=== PATIENT | female | born 1950 | race Caucasian/White ===

== ENCOUNTER 2020-04-30 18:08 | Emergency (ER) | payer MEDICARE, SELFPAY ==
--- NOTE | 2020-04-30 | XR_ITS ---
EXAMINATION: XR ABDOMEN COMPLETE CLINICAL INDICATION: Constipation. COMPARISON: None TECHNIQUE: 2 views of the abdomen. FINDINGS: There is a very large volume of stool from the cecum through the pelvis. No abnormally dilated bowel loop. Nonobstructive bowel pattern. Orthopedic fusion hardware and lumbar spine. IMPRESSION: Large volume of stool in colon consistent with constipation. No abnormally dilated bowel loop.
[2020-04-30 18:13] VITALS: BP 149/76; PULSE 71; RESP 16; TEMP 36.9; O2SAT 100; BMI 30.2
[2020-04-30 20:29] VITALS: BP 172/68; PULSE 73; TEMP 36.9; O2SAT 95
--- NOTE | 2020-04-30 21:13 | ED_ITS ---
HPI - General Adult General Chief complaint: General Medical Stated complaint: CONSTIPATION Time Seen by Provider: 04/30/20 21:01 Source: patient Mode of arrival: ambulatory History of Present Illness HPI narrative: Patient states constipated for the past 2 weeks. Denies nausea or vomiting. Denies fevers or chills. Patient states of no abdominal pain however been working with the doctor in taking laxatives [id number] however no help. No chest pain or shortness of breath. Again no abdominal pain Onset (ago): week(s) ( 2 weeks) Severity scale (1-10): 2 Treatments prior to arrival: other ( [id number]) Related Data Previous Rx's Medication Instructions Recorded lactulose 20 g PO BID PRN #30 ea 04/30/20 Allergies Allergy/AdvReac Type Severity Reaction Status Date / Time ciprofloxacin [From CIPRO] Allergy Unknown RASH Unverified 04/08/20 15:02 Sulfa (Sulfonamide Allergy Unknown RASH Unverified 04/08/20 15:02 Antibiotics) [SULFA (SULFONAMIDE ANTIBIOTICS)] sulfamethoxazole Allergy Unknown RASH Unverified 04/08/20 15:02 [From Bactrim] trimethoprim [From Bactrim] Allergy Unknown RASH Unverified 04/08/20 15:02 Review of Systems Constitutional: Comments: Constitutional : No Weight loss, No Fever, No Chills, No Night Sweats, No Fatigue, No Malaise ENT/Mouth : No Hearing loss, No Ear Pain, No Nasal Congestion, No Sinus Pain, No Hoarseness, No sore throat, No Rhinorrhea, No Swallowing Difficulty Eyes: No Eye Pain, No Swelling, No Redness, No Foreign Body, No Discharge, No Vision Changes Cardiovascular : No Chest Pain, No SOB, No Dyspnea on Exertion, No Orthopnea, No Edema, No Palpitations Respiratory : No Cough, No Sputum, No Wheezing, No Smoke Exposure, No Dyspnea Gastrointestinal : Positive Nausea, Positive Vomiting, positive Diarrhea, positive abdominal Pain, No Hematochezia, No Melena Genitourinary : no irregular bleeding, No Dysuria, No Urinary Frequency, No Hematuria, No Urinary Incontinence, No Urgency, No Flank Pain, No Urinary Flow Changes, No Hesitancy Musculoskeletal : No joint pain, No Myalgias, No Joint Swelling Skin : No Skin Lesions, No rash Neuro : No Weakness, No Numbness, No Paresthesias, No Loss of Consciousness, No Dizziness, No Headache Psych : No Anxiety/Panic, No Depression, No SI/HI/AH/VH, No Social Issues, Heme/Lymph: No Bruising, No Bleeding,No Lymphadenopathy Endocrine : No Polyuria, No Polydipsia, No Temperature Intolerance [facility] Past Medical History Medical History Anxiety Diabetes High cholesterol Hypertension Kidney failure Family History Family History (Updated 04/30/20 @ 21:14 by Uri Russo DO) Other Family history non-contributory Social History Social History Alcohol intake: never Smoking Status: Never smoker Use of substances other than those prescribed or required for medical reasons: No Advance Directives: No Advance Directives Information Provided: Yes Physical Exam Vital Signs and I&O and Narrative: Vital Signs and I&O: Vital Signs Temp 98.4 F 04/30/20 20:29 Pulse 73 04/30/20 20:29 Resp 16 04/30/20 18:13 BP 172/68 H 04/30/20 20:29 Pulse Ox 95 04/30/20 20:29 Intake & Output 04/30/20 04/30/20 05/01/20 06:59 18:59 06:59 Weight 70.307 kg Body Mass Index 30.2 vital signs reviewed Const: Other: Appearance: Alert. Oriented X3. No acute distress. Eyes: Pupils equal, round and reactive to light. ENT: Pharynx normal. Neck: Normal inspection. Neck supple. No lymph nodes noted. No crepitus CVS: Normal heart rate and rhythm. Pulses normal. Normal S1 and S2 Respiratory: No respiratory distress. Breath sounds normal. No Wheezing. No rales Abdomen: Soft and nontender. No rigidity. No distention. good BS x4 Skin: Skin warm and dry. Normal skin color. Normal skin turgor. Extremities: No lower extremity edema. Neurovascular intact to all extremities. No Lacerations. No Rash Neuro: Oriented X 3. No motor deficit. No sensory deficit. Moving all extermities. No slurred speech. Course Course Course Narrative: patient x-ray without bowel perforation or obstruction. Repeat exam of abdomen at discharge without signs of peritonitis. Will place patient on lactulose discharge home with follow-up with primary care doctor Medical Decision Making Differential Diagnosis Differential Diagnosis: bowel obstruction. Constipation Discharge Plan Discharge Clinical Impression: Constipation Patient Disposition: Home, Self-Care Instructions: Constipation (ED) Additional Instructions: Thank you for visiting the emergency department today. If your symptoms worsen or do not resolve completely please return to the emergency department immediately or call 911. if he have any questions please call your primary care physician Prescriptions: New lactulose 20 gram packet 20 g PO BID PRN (Reason: constipation) Qty: 30 RF: 0 Referrals: Susan Buchanan MD [Primary Care Provider] - 2 days Interventions: ED Discharge Assessment Last Done: 04/30/20 22:17 Discharge Date/Time: 04/30/20 22:19
--- NOTE | 2020-04-30 21:15 | PC.NURSE ---
PT C/O CONSTIPATION X 2 WKS. THIS IS A CHRONIC ISSUE FOR HER, SHE TAKES PERCOCETS FOR CHRONIC BACK PAIN AND A PHOSPHATE-DEPLETING MEDICATION D.T DIALYSIS TREATMENTS THAT CONTAIN IRON. PT DENIES ABD PAIN, DENIES ANY OTHER GI SXS. ABDOMEN APPEARS DISTENDED, NONTENDER. DENIES HX OF BLOCKAGES. PT A&OX3, SPEAKING IN CLEAR FULL SENTENCES. RESP EVEN AND NONLABOURED.
[2020-04-30] MEDS: Lactulose 20 GM/30 ML SOLUTION PO (22:16)
== END 2020-04-30 22:19 | disposition home or self-care (01) ==
PROVIDERS: Emergency Provider Emergency Medicine; PCP Internal Medicine
DX: K59.00 Constipation, unspecified (principal); I10 Essential (primary) hypertension; Z79.899 Other long term (current) drug therapy
CPT/HCPCS: 74019; 99283; 99284

== ENCOUNTER 2020-06-23 18:09 | Emergency (ER) | payer MEDICARE, SELFPAY ==
[2020-06-23 18:24] VITALS: BP 139/80; PULSE 66; RESP 18; TEMP 36.6; O2SAT 98; BMI 30.9
--- NOTE | 2020-06-23 19:34 | ECG_ITS ---
Test Reason : ABDPAIN Blood Pressure : / mmHG Vent. Rate : 069 BPM Atrial Rate : 069 BPM P-R Int : 150 ms QRS Dur : 070 ms QT Int : 472 ms P-R-T Axes : 074 016 074 degrees QTc Int : 505 ms Normal sinus rhythm Nonspecific ST and T wave abnormality Prolonged QT Abnormal ECG When compared with ECG of 06-SEP-2004 11:17, QT has lengthened Referred By: Georges Jacobson Electronically Signed By:TAMAR MEJIA MD
--- NOTE | 2020-06-23 19:34 | CT_ITS ---
EXAMINATION: CT HEAD WITHOUT CONTRAST CLINICAL INFORMATION: Right-sided arm numbness. COMPARISON: CT head 02/19/2019 TECHNIQUE: Contiguous axial imaging was performed from the skull base to vertex without intravenous administration of contrast. Coronal and sagittal reformatted images are performed at CT scanner This CT examination was performed using dose optimization techniques as appropriate, variously including the following: *Automated exposure control *Adjustment of mA and/or kV according to patient size (this includes techniques or standardized protocols for targeted exams where dose is matched to indication/reason for exam; i.e. extremities or head) *Use of iterative reconstruction technique DLP: 756 mGy-cm FINDINGS: There is no evidence of acute intracranial hemorrhage or territorial infarction. No abnormal mass effect or midline shift is seen. Alva to white matter differentiation is well preserved. No extra-axial fluid collections are identified. There is atrophy with prominence of the ventricles and the sulci and hypodensity of the periventricular white matter due to chronic small vessel ischemic disease. There are vascular calcifications of the internal carotid arteries bilaterally. The osseous structures and soft tissues are normal. The mastoid air cells and visualized portions of the paranasal sinuses are well aerated. CT/CT head/brain wo con IMPRESSION: No acute intracranial pathology.
--- NOTE | 2020-06-23 19:38 | ED_ITS ---
HPI - General Adult General Chief complaint: General Medical Stated complaint: right sided numbness Time Seen by Provider: 06/23/20 19:20 History of Present Illness HPI narrative: 70-year-old female who presents emergency department for evaluation numbness of her right arm. The patient has a history of end-stage renal disease and is dialyzed on Sunday and Sunday. She states that over the past 3 weeks she has noticed numbness in her left arm which involves her hand to her shoulder. She states the numbness has been constant and has gotten progressively worse. She did discuss this with her doctor who felt that it could be related to her left arm fistula and she is scheduled for a fistulogram. She states that she was working on her computer for several hours using her right hand to control the mouse. She states he then developed numbness of her right hand, forearm and right shoulder. She states she then developed left facial numbness. She attempted to use a fork to eat and had difficulty using her right arm. She states that she then developed numbness around her lips and her tongue felt numb and thick as well. She states she became very anxious and was worried that she was having a stroke so she came to the emergency department for evaluation. She believes that the right arm numbness began around 4:00 p.m. but does not know the exact time. At the time of evaluation she states that she has both left and right arm numbness with no facial numbness. She denies fever, chills, headache, nausea, vomiting, chest pain, shortness of breaths. Related Data Previous Rx's Medication Instructions Recorded lactulose 20 g PO BID PRN #30 ea 04/30/20 Allergies Allergy/AdvReac Type Severity Reaction Status Date / Time ciprofloxacin [From CIPRO] Allergy Unknown RASH Unverified 04/08/20 15:02 Sulfa (Sulfonamide Allergy Unknown RASH Unverified 04/08/20 15:02 Antibiotics) [SULFA (SULFONAMIDE ANTIBIOTICS)] sulfamethoxazole Allergy Unknown RASH Unverified 04/08/20 15:02 [From Bactrim] trimethoprim [From Bactrim] Allergy Unknown RASH Unverified 04/08/20 15:02 Review of Systems Review of Systems: Yes all other systems are reviewed and are negative Constitutional: Constitutional: Reports as per HPI Eyes: Eyes: Reports as per HPI ENT: Reports as per HPI Cardiovascular: Cardiovascular: Reports as per HPI Respiratory: Respiratory: Reports as per HPI Gastrointestinal: Gastrointestinal: Reports as per HPI Genitourinary: Genitourinary: Reports as per HPI Musculoskeletal: Musculoskeletal: Reports as per HPI Integumentary/Breasts: Skin/Breast: Reports as per HPI Neurologic: Reports as per HPI and Reports Abnormal speech present Psychiatric: Psychiatric: Reports as per HPI Allergic/Immunologic: Allergic/Immunologic: Reports as per HPI [facility] Past Medical History Medical History Anxiety Diabetes High cholesterol Hypertension Kidney failure Family History Family History Other Family history non-contributory Social History Social History Alcohol intake: never Smoking Status: Never smoker Smoked in Last 30 Days: No Use of substances other than those prescribed or required for medical reasons: No Advance Directives: No Advance Directives Information Provided: No Physical Exam Vital Signs: Vital Signs: Last Vital Signs Temp 98 F 06/23/20 18:24 Pulse 66 06/23/20 18:24 Resp 18 06/23/20 18:24 BP 139/80 06/23/20 18:24 Pulse Ox 98 06/23/20 18:24 Body Mass Index 30.9 Const: General: cooperative, no acute distress, alert and awake Orientation/consciousness: oriented to person and oriented to place Limitations: no limitations HENMT: Head: Yes normal to inspection, Yes normocephalic and Yes atraumatic Ears: external ears normal General nose exam: Normal external nose present Face and sinus: Yes normal facial exam Mouth: Normal oral and palatal mucosa present Throat: Yes posterior oropharynx normal Eyes: General: appearance normal, both eyes and all related structures Periorbital: periorbital findings normal Eyelids: Yes eyelids normal Conjunctivae: conjunctivae normal Sclerae: sclerae normal Corneas: corneas normal Pupils: Equal, round and reactive pupils present Direct Ophthalmoscopy: normal light reflex Neck: Neck: Yes normal visual inspection and Yes supple Lymphatic: no lymphadenopathy noted Chest: Chest palpation & inspection: normal inspection of the chest and normal palpation of entire chest wall Resp: Effort & Inspection: normal respiratory effort, abnormal respiratory pattern, no audible wheezes and no respiratory distress Auscultation: clear to auscultation bilaterally, no crackles, no rales, no rhonchi and no wheezes Cardio: Rate: regular rate Rhythm: regular rhythm Heart sounds: S1 normal heart sound present, S2 normal heart sound present and Murmur heart sound present GI: Inspection: No distended Palpation (GI): Soft to palpation, nontender, no guarding and No hepatosplenomegaly present Auscultation: normal bowel sounds : General: Yes no CVA tenderness Back/Spine/Pelvis: Back: no CVA tenderness Skin: General skin exam: no rashes or lesions noted Lesions: no lesions Rashes: no rashes Wounds: no wounds Neuro: General: oriented to person and oriented to place Cranial nerves: Yes CN's II-XII intact bilaterally and Yes Equal, round and reactive pupils present Cognition (Neuro): normal cognition Speech: Abnormal speech present Motor exam (neuro): 5/5 motor strength present throughout Sensory Exam: other (Normal light touch, bilaterally symmetric) Extrem: General: Yes normal to inspection, Yes full ROM, Yes no pedal edema, Yes no calf tenderness and Yes other (Left arm fistula with thrill and bruit) Psych: Appearance: grossly normal Mental Status: mental status grossly normal Speech and movement: Clear speech present Affect: normal affect Thought process: Normal thought process present NIH Stroke Scale Internal: Initial- Upon Arrival Level of Consciousness: Alert Level of Consciousness Questions: Answers both questions correctly Level of Consciousness Commands: Performs both tasks correctly Best Gaze: Normal Visual: No visual loss Facial Palsy: Normal Motor Arm (Right): No drift Motor Arm (Left): No drift Motor Leg (Right): No drift Motor Leg (Left): No drift Limb Ataxia: Absent Sensory: Normal Best Language: No aphasia Dysarthia: Normal Extinction and Inattention: No abnormality Score: 0 Course Course Course Narrative: 70-year-old female who presents to the emergency department for evaluation of right arm numbness. The patient has been experiencing left arm numbness for 3 weeks. Today, after sitting at the computer in using her mouse for several hours she developed right arm numbness followed by left facial numbness, incoordination of her right arm, periorbital numbness and numbness of her tongue. The patient's physical examination was normal at this time with an NIH stroke scale of 0 and a nonfocal neurologic exam with normal light touch. The patient does have a left arm fistula which has a good thrill and bruit. At this time, I do not have a clear etiology for the patient's symptoms, she may have had a stroke or bleed or this may be secondary to anxiety. I did order a stroke workup on the patient. 2154: The patient's laboratory evaluation was consistent with her chronic kidney disease, her electrolytes were unremarkable with a normal potassium of 3.9. The patient was not anemic. CT scan of the brain revealed no acute findings. At this time, I do not think that she has had stroke and did discuss this with her. I do not have a clear etiology for the patient's left arm numbness however I told her that it could be related to her neck or to her dialysis fistula and that she should follow up with her doctor for further evaluation. I do believe that there was a component of anxiety to her presentation as well. The patient does have Valium that she takes at night and they told her to take her usual dose. Patient was discharged home with printed instructions. Medical Decision Making Lab Data Lab results reviewed: Yes I reviewed the patient's lab results. Result diagrams: 06/23/20 20:04 06/23/20 20:04 Labs: Lab Results 06/23/20 06/23/20 06/23/20 Range/Units 20:04 20:04 20:04 WBC 12.9 H (4.8-10.8) X10*3/uL RBC 4.24 (4.20-5.50) X10*6/uL Hgb 13.0 (12.0-16.0) g/dl Hct 39.1 (37-47) % MCV 92.2 (80-98) fL MCH 30.7 (27.0-33.0) pg MCHC 33.2 (31.0-35.0) g/dl RDW 12.9 (11.0-16.0) % Plt Count 200 (160-400) X10*3/uL MPV 12.2 (9.4-12.3) fL Immature Gran % (Auto) 0.5 H (0.0-0.4) % Neut % (Auto) 79.8 H (45-73) % Lymph % (Auto) 9.9 L (20-40) % Talbot % (Auto) 7.6 (2-11) % Eos % (Auto) 1.6 (0-4) % Baso % (Auto) 0.6 (0-2) % Lymph # (Auto) 1.3 (1.2-4.9) X10*3/uL Talbot # (Auto) 1.0 (0.1-1.2) X10*3/uL Eos # (Auto) 0.2 (0.0-0.4) X10*3/uL Baso # (Auto) 0.1 (0.0-0.2) X10*3/uL Abs Immat Gran (auto) 0.07 H (0.00-0.03) X10*3/uL Absolute Neuts (auto) 10.3 H (2.0-8.3) X10*3/uL Absolute Nucleated RBC 0.000 (0.0-0.012) X10*3/uL Nucleated RBC % (auto) 0.0 (0.0-0.2) /100WBC PT 11.0 (10.8-13.0) SEC INR 0.9 (0.9-1.1) APTT 32.5 (24.1-38.0) SEC Sodium 134 L (135-145) mmol/L Potassium 3.9 (3.3-5.1) mmol/l Chloride 93 L (96-108) mmol/L Carbon Dioxide 25 (22-29) mmol/L Anion Gap 20 (12-20) BUN 29 H (9-16) mg/dL Creatinine 5.74 H* (0.5-1.4) mg/dL Estim Creat Clear Calc 7.9 Estimated GFR 7 Random Glucose 178 H (60-115) mg/dL Calcium 7.9 L (8.4-10.2) mg/dL Total Bilirubin 0.5 (0.0-1.0) mg/dL Direct Bilirubin 0.2 (0.0-0.5) mg/dL AST 14 (5-31) U/L ALT 15 (0-31) U/L Alkaline Phosphatase 227 H (39-117) U/L Total Creatine Kinase 66 (26-140) U/L Total Protein 7.5 (6.5-8.0) g/dL Albumin 4.5 (3.5-5.0) g/dL Discharge Plan Discharge Clinical Impression: Numbness and tingling in both hands, Anxiety Instructions: Hyperventilation (ED) Additional Instructions: Your blood work is consistent with your kidney disease, your electrolytes were normal. The CT scan of the brain did not reveal any evidence for a new stroke or any findings to explain your numbness. You should follow-up with your doctor to further evaluate the numbness of her left arm. Take your medications as prescribed by your doctor. Follow-up with your doctor within 2 days for re-evaluation. Please return to the emergency department if your symptoms get worse or if you develop any new symptoms are concerning to you. Prescriptions: No Action lactulose 20 gram packet 20 g PO BID PRN (Reason: constipation) Qty: 30 RF: 0
[2020-06-23 20:18] LABS: Basophils Absolute Auto 0.1 X10*3/uL (0.0-0.2); Basophils Percent Auto 0.6 % (0-2); Eosinophils Absolute Auto 0.2 X10*3/uL (0.0-0.4); Eosinophils Percent Auto 1.6 % (0-4); Hematocrit 39.1 % (37-47); Imm Gran Abs Auto 0.07 X10*3/uL (0.00-0.03); Imm Gran Pct Auto 0.5 % (0.0-0.4); Lymphocytes Absolute Auto 1.3 X10*3/uL (1.2-4.9); Lymphocytes Percent Auto 9.9 % (20-40); MANUAL DIFF FLAG NO; Mean Corpuscular HGB Conc 33.2 g/dl (31.0-35.0); Mean Corpuscular Hemoglobin 30.7 pg (27.0-33.0); Mean Corpuscular Volume 92.2 fL (80-98); Mean Platelet Volume 12.2 fL (9.4-12.3); Monocytes Percent Auto 7.6 % (2-11); Neutrophils Absolute Auto 10.3 X10*3/uL (2.0-8.3); Neutrophils Percent Auto 79.8 % (45-73); Platelet Count 200 X10*3/uL (160-400); Red Blood Count 4.24 X10*6/uL (4.20-5.50); Red Cell Distribution Width 12.9 % (11.0-16.0); White Blood Count 12.9 X10*3/uL (4.8-10.8)
[2020-06-23 20:41] LABS: INTERNATIONAL NORM RATIO 0.9 (0.9-1.1)
[2020-06-23 20:44] LABS: Partial Thromboplastin Time 32.5 SEC (24.1-38.0)
[2020-06-23 20:52] LABS: Alanine Aminotransferase 15 U/L (0-31); Albumin Level 4.5 g/dL (3.5-5.0); Alkaline Phosphatase 227 U/L (39-117); Anion Gap 20 (12-20); Aspartate Amino Transferase 14 U/L (5-31); Bilirubin Direct 0.2 mg/dL (0.0-0.5); Bilirubin Total 0.5 mg/dL (0.0-1.0); Blood Urea Nitrogen 29 mg/dL (9-16); Calcium 7.9 mg/dL (8.4-10.2); Carbon Dioxide 25 mmol/L (22-29); Chloride 93 mmol/L (96-108); Creatinine Clr Calc Pharmacy 7.9; Estimated Glomerular Filt Rate 7; Glucose Random 178 mg/dL (60-115); Potassium 3.9 mmol/l (3.3-5.1); Sodium 134 mmol/L (135-145); Total Protein 7.5 g/dL (6.5-8.0)
[2020-06-23 22:10] VITALS: BP 165/75; PULSE 72; RESP 18; TEMP 36.7; O2SAT 97
== END 2020-06-23 22:35 | disposition home or self-care (01) ==
PROVIDERS: Emergency Provider Emergency Medicine Emergency Medical Services; PCP Internal Medicine
DX: R20.0 Anesthesia of skin (principal); F41.1 Generalized anxiety disorder; F43.0 Acute stress reaction; I10 Essential (primary) hypertension; Z79.899 Other long term (current) drug therapy
CPT/HCPCS: 36415; 70450; 80048; 80076; 82550; 85025; 85610; 85730; 93005; 99284

== ENCOUNTER 2020-07-27 10:09 | Inpatient (IN) | payer MEDICARE, SELFPAY ==
[2020-07-27] VITALS (9 sets, daily range): BP systolic 155–210; BP diastolic 80–100; PULSE 73–78; RESP 16–20; TEMP 36.2–37.1; O2SAT 91–98; BMI 30.4
--- NOTE | 2020-07-27 10:16 | ECG_ITS ---
Test Reason : WEAKNESS Blood Pressure : / mmHG Vent. Rate : 077 BPM Atrial Rate : 077 BPM P-R Int : 148 ms QRS Dur : 068 ms QT Int : 438 ms P-R-T Axes : 055 032 084 degrees QTc Int : 495 ms Normal sinus rhythm Nonspecific ST abnormality Prolonged QT Abnormal ECG When compared with ECG of 23-JUN-2020 19:44, No significant change was found Referred By: Vero Blue Electronically Signed By:Mauro Hu
--- NOTE | 2020-07-27 10:16 | CT_ITS ---
EXAMINATION: CT CHEST WITHOUT CONTRAST CLINICAL INFORMATION: Left-sided rib pain. COMPARISON: None TECHNIQUE: Multidetector volumetric CT imaging of the chest was done. Axial MIP volume rendering provided. Sagittal and coronal reformatted images were obtained. This CT examination was performed using dose optimization techniques as appropriate, variously including the following: *Automated exposure control *Adjustment of mA and/or kV according to patient size (this includes techniques or standardized protocols for targeted exams where dose is matched to indication/reason for exam; i.e. extremities or head) *Use of iterative reconstruction technique DLP: 239 mGy-cm FINDINGS: FITTING ROOM OPERATOR: Well-expanded lungs. LUNGS: The lungs are well-expanded multiple bilateral pulmonary cysts. There is no acute pneumonic consolidation or mass or pulmonary nodules. Mild thickening of right superior major fissure and left mid major fissure is noted. There is diffuse mild prominence of interstitium with mild bronchiectasis in both lower lobes. There is scattered groundglass opacity right upper lobe, right middle lobe and both lower lobes. MEDIASTINUM: The heart size is normal. The pulmonary vascularity is normal. There are reactive lymph nodes in the mediastinum with the largest short axis lymph node measuring 1.3 cm in precarinal space there are coronary artery calcifications present no pericardial effusion seen. PLEURA: There is a small right pleural effusion. No pleural thickening or calcification seen. AXILLA: No abnormal lymph nodes seen UPPER ABDOMEN: Visualized liver, spleen, pancreas and bilateral adrenal glands are unremarkable. There is a small radiopaque gallstones in the dependent portion. OSSEOUS STRUCTURES: There is diffuse degenerative disc changes and spondylosis T7-T8, T8-T9, T9-T10, T10-T11 and T11-T12 disc levels. No lytic process seen. CT/CT chest wo con IMPRESSION: Groundglass attenuation seen throughout both lungs with mild interstitial prominence and mild bronchiectasis both lungs of small airway disease. No consolidation seen. There is a small right pleural effusion. There are reactive mediastinal lymph nodes with largest short axis lymph node measuring 1.3 cm in precarinal space.
--- NOTE | 2020-07-27 10:16 | NM_ITS ---
EXAMINATION: NM LUNG IMAGE PERFUSION CLINICAL INFORMATION: Left sided pleuritic chest pain COMPARISON: None TECHNIQUE: Following intravenous administration of 4 mCi of 99m technetium MAA, imaging of both lungs were obtained in multiple projections. Ventilation study was not performed. FINDINGS: There is normal perfusion of all segments of both lungs. No segmental or subsegmental defects seen. Ventilation study was not performed. NM/NM pul perfusion IMPRESSION: Normal perfusion scan.
--- NOTE | 2020-07-27 10:20 | ED.CHESTPAIN ---
HPI - Chest Pain General Chief Complaint: Back Pain/Injury Stated Complaint: rib pain Time Seen by Provider: 07/27/20 10:16 Source: patient and EMS Mode of arrival: EMS Limitations: no limitations History of Present Illness MD complaint: other (L pleuritic chest pain) Onset (ago): day(s) (7) Prior episodes: No Onset: during rest Pain location: left chest Pain radiation: none Severity: moderate Quality: sharp Relieving factors: nothing Exacerbating factors: inspiration, palpation and movement Associated symptoms: nausea and dyspnea Treatment prior to arrival: aspirin Related Data Home Medications Medication Instructions Recorded Confirmed acetaminophen-codeine 2 tab PO TID 07/27/20 07/27/20 amlodipine 1 tab PO DAILY 07/27/20 07/27/20 bupropion HCl 1 tab PO QAM 07/27/20 07/27/20 citalopram 1 tab PO DAILY 07/27/20 07/27/20 gabapentin 1 cap PO DAILY 07/27/20 07/27/20 hydralazine 1 tab PO DAILY 07/27/20 07/27/20 insulin lispro [Humalog KwikPen 0 unit SUBCUT TIDAC 07/27/20 07/27/20 Insulin] lorazepam 2 tab PO BEDTIME PRN 07/27/20 07/27/20 metoprolol succinate 1 tab PO DAILY 07/27/20 07/27/20 pravastatin 1 tab PO DAILY 07/27/20 07/27/20 psyllium husk (aspartame) 1 packet PO DAILY 07/27/20 07/27/20 [Metamucil Fiber Singles] Allergies Allergy/AdvReac Type Severity Reaction Status Date / Time ciprofloxacin [From CIPRO] Allergy Unknown RASH Unverified 04/08/20 15:02 Sulfa (Sulfonamide Allergy Unknown RASH Unverified 04/08/20 15:02 Antibiotics) [SULFA (SULFONAMIDE ANTIBIOTICS)] sulfamethoxazole Allergy Unknown RASH Unverified 04/08/20 15:02 [From Bactrim] trimethoprim [From Bactrim] Allergy Unknown RASH Unverified 04/08/20 15:02 Review of Systems Review of Systems: Constitutional : No Weight loss, No Fever, No Chills ENT/Mouth : No sore throat, No Rhinorrhea Eyes: No Eye Pain, No Swelling Cardiovascular : pos Chest Pain, pos SOB, no Dyspnea on Exertion, No Orthopnea, No Edema, No Palpitations Respiratory : No Cough, No Sputum Gastrointestinal : pos Nausea, No Vomiting, No Diarrhea, No abdominal Pain, No Hematochezia, No Melena Genitourinary : No Dysuria, No Urinary Frequency Musculoskeletal : No joint pain, No Myalgias, No Joint Swelling Skin : No Skin Lesions, No rash Neuro : No Weakness, No Numbness, No Dizziness, No Headache Psych : No Anxiety/Panic, No Depression Heme/Lymph: No Bruising, No Lymphadenopathy Endocrine : No Polyuria, No Polydipsia All other systems reviewed and are negative [facility] Past Medical History Attestation statement: The following information was validated with the patient. Medical History (Updated 07/27/20 @ 14:32 by Dalila Huizar NP) Anxiety Arthropathy of right hip AV fistula Back pain Diabetes High cholesterol Hypertension Kidney failure Surgical History (Updated 07/27/20 @ 14:32 by Dalila Huizar NP) H/O: hysterectomy Family History Family History Other Family history non-contributory Social History Social History Alcohol intake: never Smoking Status: Never smoker Use of substances other than those prescribed or required for medical reasons: No Advance Directives: No Advance Directives Information Provided: Yes Physical Exam Vital Signs: Vital Signs: Last Vital Signs Temp 98.4 F 07/27/20 13:35 Pulse 76 07/27/20 15:47 Resp 19 07/27/20 13:35 BP 210/90 H 07/27/20 15:47 Pulse Ox 98 07/27/20 13:35 Body Mass Index 30.4 Appearance: Alert. Oriented X3. No acute distress. Eyes: Pupils equal, round and reactive to light. ENT: Pharynx normal. Neck: Normal inspection. Neck supple. CVS: Normal heart rate and rhythm. Pulses normal. Chest: mild ttp along L ribs Respiratory: No respiratory distress. Breath sounds normal. Abdomen: Soft and non-tender. Skin: Skin warm and dry. Normal skin color. Normal skin turgor. Extremities: No lower extremity edema. No calf ttp LUE AVF + thrill Neuro: Oriented X 3. No motor deficit. No sensory deficit. Course Course Course Narrative: no PE, GGO in both lungs but COVID negative will need ambulation trial I trialed the patient off of O2 with activity and she became dizzy and dropped down to 78% RA she recovered with NC, COVID was negative but at this time will admit for possible pneumonia and hypoxia cultures/lactic acid ordered start on antibiotics and will admit the patient 204pm call to nephrology still pending call back from nephrology emergent HD does not seem necessary but no call back yet. MDM - Chest Pain MDM Narrative Medical decision making narrative: 70 yo femle with DM, HTN, CRF on HD T TH S here with L sided pleuritic chest pain atraumatic and now some nausea will need labs, EKG, CT scan dry chest for rib fractures/pneumonia and VQ scan (refuses contrast) to r/o PE, dispo per results and findings. Lab Data Result diagrams: 07/27/20 12:16 07/27/20 12:17 Labs: Lab Results 07/27/20 07/27/20 07/27/20 Range/Units 12:05 12:08 12:16 WBC 9.9 (4.8-10.8) X10*3/uL RBC 4.05 L (4.20-5.50) X10*6/uL Hgb 12.6 (12.0-16.0) g/dl Hct 38.0 (37-47) % MCV 93.8 (80-98) fL MCH 31.1 (27.0-33.0) pg MCHC 33.2 (31.0-35.0) g/dl RDW 14.0 (11.0-16.0) % Plt Count 206 (160-400) X10*3/uL MPV 11.4 (9.4-12.3) fL Immature Gran % (Auto) 0.4 (0.0-0.4) % Neut % (Auto) 87.3 H (45-73) % Lymph % (Auto) 6.9 L (20-40) % [place] % (Auto) 4.2 (2-11) % Eos % (Auto) 0.6 (0-4) % Baso % (Auto) 0.6 (0-2) % Lymph # (Auto) 0.7 L (1.2-4.9) X10*3/uL [place] # (Auto) 0.4 (0.1-1.2) X10*3/uL Eos # (Auto) 0.1 (0.0-0.4) X10*3/uL Baso # (Auto) 0.1 (0.0-0.2) X10*3/uL Abs Immat Gran (auto) 0.04 H (0.00-0.03) X10*3/uL Absolute Neuts (auto) 8.7 H (2.0-8.3) X10*3/uL Absolute Nucleated RBC 0.000 (0.0-0.012) X10*3/uL Nucleated RBC % (auto) 0.0 (0.0-0.2) /100WBC PT (10.8-13.0) SEC INR (0.9-1.1) APTT (24.1-38.0) SEC D-Dimer NG/ML ABG pH (7.35-7.45) ABG pCO2 (32-45) mmhg ABG pO2 (83-108) mmhg ABG HCO3 (22-26) mmol/l ABG O2 Saturation % ABG Base Excess Oxygen Given Sodium (135-145) mmol/L Potassium (3.3-5.1) mmol/l Chloride (96-108) mmol/L Carbon Dioxide (22-29) mmol/L Anion Gap (12-20) BUN (9-16) mg/dL Creatinine (0.5-1.4) mg/dL Estim Creat Clear Calc Estimated GFR Random Glucose (60-115) mg/dL Lactic Acid (0.5-2.0) mmol/L Calcium (8.4-10.2) mg/dL Magnesium (1.6-2.6) mg/dL Ferritin (10-250) ng/mL Total Bilirubin (0.0-1.0) mg/dL Direct Bilirubin (0.0-0.5) mg/dL AST (5-31) U/L ALT (0-31) U/L Alkaline Phosphatase (39-117) U/L Lactate Dehydrogenase (122-220) U/L Troponin I High Sens (<3.5-17.0) ng/L B-Natriuretic Peptide (<100) pg/mL Total Protein (6.5-8.0) g/dL Albumin (3.5-5.0) g/dL Lipase (8-78) U/L Procalcitonin ng/mL Urine Color YELLOW Urine Appearance CLEAR Urine pH 8.0 (5.0-8.0) Ur Specific [place] 1.015 (1.005-1.025) Urine Protein 2+ H (NEG-TRACE) MG/DL Urine Glucose (UA) 250 H (NEG) MG/DL Urine Ketones NEG (NEG) MG/DL Urine Blood 1+ H (NEG) Urine Nitrite NEG (NEG) Ur Leukocyte Esterase NEG (NEG) Urine RBC 1-4 (0) /HPF Urine WBC 0 (0-4) /HPF Ur Squamous Epith Cells TRACE /LPF Urine Bacteria NONE /LPF Coronavirus (PCR) (Negative) COVID-19 (FANNIE) Negative (Negative) COVID-19 Clin Com See Note Influenza Type A (PCR) (Negative) Influenza Type B (PCR) (Negative) RSV RNA Qual (PCR) (Negative) 07/27/20 07/27/20 07/27/20 Range/Units 12:17 12:17 12:17 WBC (4.8-10.8) X10*3/uL RBC (4.20-5.50) X10*6/uL Hgb (12.0-16.0) g/dl Hct (37-47) % MCV (80-98) fL MCH (27.0-33.0) pg MCHC (31.0-35.0) g/dl RDW (11.0-16.0) % Plt Count (160-400) X10*3/uL MPV (9.4-12.3) fL Immature Gran % (Auto) (0.0-0.4) % Neut % (Auto) (45-73) % Lymph % (Auto) (20-40) % [place] % (Auto) (2-11) % Eos % (Auto) (0-4) % Baso % (Auto) (0-2) % Lymph # (Auto) (1.2-4.9) X10*3/uL [place] # (Auto) (0.1-1.2) X10*3/uL Eos # (Auto) (0.0-0.4) X10*3/uL Baso # (Auto) (0.0-0.2) X10*3/uL Abs Immat Gran (auto) (0.00-0.03) X10*3/uL Absolute Neuts (auto) (2.0-8.3) X10*3/uL Absolute Nucleated RBC (0.0-0.012) X10*3/uL Nucleated RBC % (auto) (0.0-0.2) /100WBC PT 12.0 (10.8-13.0) SEC INR 1.0 (0.9-1.1) APTT 32.9 (24.1-38.0) SEC D-Dimer 277 NG/ML ABG pH (7.35-7.45) ABG pCO2 (32-45) mmhg ABG pO2 (83-108) mmhg ABG HCO3 (22-26) mmol/l ABG O2 Saturation % ABG Base Excess Oxygen Given Sodium 134 L (135-145) mmol/L Potassium 4.6 (3.3-5.1) mmol/l Chloride 93 L (96-108) mmol/L Carbon Dioxide 23 (22-29) mmol/L Anion Gap 23 H (12-20) BUN 33 H (9-16) mg/dL Creatinine 6.39 H* (0.5-1.4) mg/dL Estim Creat Clear Calc 7.1 Estimated GFR 6 Random Glucose 199 H (60-115) mg/dL Lactic Acid (0.5-2.0) mmol/L Calcium 7.9 L (8.4-10.2) mg/dL Magnesium 2.0 (1.6-2.6) mg/dL Ferritin 883 H (10-250) ng/mL Total Bilirubin 0.6 (0.0-1.0) mg/dL Direct Bilirubin 0.3 (0.0-0.5) mg/dL AST 12 (5-31) U/L ALT 18 (0-31) U/L Alkaline Phosphatase 183 H (39-117) U/L Lactate Dehydrogenase 315 H (122-220) U/L Troponin I High Sens 5.2 (<3.5-17.0) ng/L B-Natriuretic Peptide 1152 H (<100) pg/mL Total Protein 6.9 (6.5-8.0) g/dL Albumin 4.2 (3.5-5.0) g/dL Lipase 7 L (8-78) U/L Procalcitonin ng/mL Urine Color Urine Appearance Urine pH (5.0-8.0) Ur Specific [place] (1.005-1.025) Urine Protein (NEG-TRACE) MG/DL Urine Glucose (UA) (NEG) MG/DL Urine Ketones (NEG) MG/DL Urine Blood (NEG) Urine Nitrite (NEG) Ur Leukocyte Esterase (NEG) Urine RBC (0) /HPF Urine WBC (0-4) /HPF Ur Squamous Epith Cells /LPF Urine Bacteria /LPF Coronavirus (PCR) (Negative) COVID-19 (FANNIE) (Negative) COVID-19 Clin Com Influenza Type A (PCR) (Negative) Influenza Type B (PCR) (Negative) RSV RNA Qual (PCR) (Negative) 07/27/20 07/27/20 07/27/20 Range/Units 12:17 14:55 15:06 WBC (4.8-10.8) X10*3/uL RBC (4.20-5.50) X10*6/uL Hgb (12.0-16.0) g/dl Hct (37-47) % MCV (80-98) fL MCH (27.0-33.0) pg MCHC (31.0-35.0) g/dl RDW (11.0-16.0) % Plt Count (160-400) X10*3/uL MPV (9.4-12.3) fL Immature Gran % (Auto) (0.0-0.4) % Neut % (Auto) (45-73) % Lymph % (Auto) (20-40) % [place] % (Auto) (2-11) % Eos % (Auto) (0-4) % Baso % (Auto) (0-2) % Lymph # (Auto) (1.2-4.9) X10*3/uL [place] # (Auto) (0.1-1.2) X10*3/uL Eos # (Auto) (0.0-0.4) X10*3/uL Baso # (Auto) (0.0-0.2) X10*3/uL Abs Immat Gran (auto) (0.00-0.03) X10*3/uL Absolute Neuts (auto) (2.0-8.3) X10*3/uL Absolute Nucleated RBC (0.0-0.012) X10*3/uL Nucleated RBC % (auto) (0.0-0.2) /100WBC PT (10.8-13.0) SEC INR (0.9-1.1) APTT (24.1-38.0) SEC D-Dimer NG/ML ABG pH (7.35-7.45) ABG pCO2 (32-45) mmhg ABG pO2 (83-108) mmhg ABG HCO3 (22-26) mmol/l ABG O2 Saturation % ABG Base Excess Oxygen Given Sodium (135-145) mmol/L Potassium (3.3-5.1) mmol/l Chloride (96-108) mmol/L Carbon Dioxide (22-29) mmol/L Anion Gap (12-20) BUN (9-16) mg/dL Creatinine (0.5-1.4) mg/dL Estim Creat Clear Calc Estimated GFR Random Glucose (60-115) mg/dL Lactic Acid 0.9 (0.5-2.0) mmol/L Calcium (8.4-10.2) mg/dL Magnesium (1.6-2.6) mg/dL Ferritin (10-250) ng/mL Total Bilirubin (0.0-1.0) mg/dL Direct Bilirubin (0.0-0.5) mg/dL AST (5-31) U/L ALT (0-31) U/L Alkaline Phosphatase (39-117) U/L Lactate Dehydrogenase (122-220) U/L Troponin I High Sens (<3.5-17.0) ng/L B-Natriuretic Peptide (<100) pg/mL Total Protein (6.5-8.0) g/dL Albumin (3.5-5.0) g/dL Lipase (8-78) U/L Procalcitonin 0.15 ng/mL Urine Color Urine Appearance Urine pH (5.0-8.0) Ur Specific [place] (1.005-1.025) Urine Protein (NEG-TRACE) MG/DL Urine Glucose (UA) (NEG) MG/DL Urine Ketones (NEG) MG/DL Urine Blood (NEG) Urine Nitrite (NEG) Ur Leukocyte Esterase (NEG) Urine RBC (0) /HPF Urine WBC (0-4) /HPF Ur Squamous Epith Cells /LPF Urine Bacteria /LPF Coronavirus (PCR) NEGATIVE (Negative) COVID-19 (FANNIE) (Negative) COVID-19 Clin Com Influenza Type A (PCR) NEGATIVE (Negative) Influenza Type B (PCR) NEGATIVE (Negative) RSV RNA Qual (PCR) NEGATIVE (Negative) 07/27/20 Range/Units 15:40 WBC (4.8-10.8) X10*3/uL RBC (4.20-5.50) X10*6/uL Hgb (12.0-16.0) g/dl Hct (37-47) % MCV (80-98) fL MCH (27.0-33.0) pg MCHC (31.0-35.0) g/dl RDW (11.0-16.0) % Plt Count (160-400) X10*3/uL MPV (9.4-12.3) fL Immature Gran % (Auto) (0.0-0.4) % Neut % (Auto) (45-73) % Lymph % (Auto) (20-40) % [place] % (Auto) (2-11) % Eos % (Auto) (0-4) % Baso % (Auto) (0-2) % Lymph # (Auto) (1.2-4.9) X10*3/uL [place] # (Auto) (0.1-1.2) X10*3/uL Eos # (Auto) (0.0-0.4) X10*3/uL Baso # (Auto) (0.0-0.2) X10*3/uL Abs Immat Gran (auto) (0.00-0.03) X10*3/uL Absolute Neuts (auto) (2.0-8.3) X10*3/uL Absolute Nucleated RBC (0.0-0.012) X10*3/uL Nucleated RBC % (auto) (0.0-0.2) /100WBC PT (10.8-13.0) SEC INR (0.9-1.1) APTT (24.1-38.0) SEC D-Dimer NG/ML ABG pH 7.38 (7.35-7.45) ABG pCO2 40 (32-45) mmhg ABG pO2 58 L (83-108) mmhg ABG HCO3 23 (22-26) mmol/l ABG O2 Saturation 90.9 % ABG Base Excess -2.0 Oxygen Given 1 L Sodium (135-145) mmol/L Potassium (3.3-5.1) mmol/l Chloride (96-108) mmol/L Carbon Dioxide (22-29) mmol/L Anion Gap (12-20) BUN (9-16) mg/dL Creatinine (0.5-1.4) mg/dL Estim Creat Clear Calc Estimated GFR Random Glucose (60-115) mg/dL Lactic Acid (0.5-2.0) mmol/L Calcium (8.4-10.2) mg/dL Magnesium (1.6-2.6) mg/dL Ferritin (10-250) ng/mL Total Bilirubin (0.0-1.0) mg/dL Direct Bilirubin (0.0-0.5) mg/dL AST (5-31) U/L ALT (0-31) U/L Alkaline Phosphatase (39-117) U/L Lactate Dehydrogenase (122-220) U/L Troponin I High Sens (<3.5-17.0) ng/L B-Natriuretic Peptide (<100) pg/mL Total Protein (6.5-8.0) g/dL Albumin (3.5-5.0) g/dL Lipase (8-78) U/L Procalcitonin ng/mL Urine Color Urine Appearance Urine pH (5.0-8.0) Ur Specific [place] (1.005-1.025) Urine Protein (NEG-TRACE) MG/DL Urine Glucose (UA) (NEG) MG/DL Urine Ketones (NEG) MG/DL Urine Blood (NEG) Urine Nitrite (NEG) Ur Leukocyte Esterase (NEG) Urine RBC (0) /HPF Urine WBC (0-4) /HPF Ur Squamous Epith Cells /LPF Urine Bacteria /LPF Coronavirus (PCR) (Negative) COVID-19 (FANNIE) (Negative) COVID-19 Clin Com Influenza Type A (PCR) (Negative) Influenza Type B (PCR) (Negative) RSV RNA Qual (PCR) (Negative) ECG Data ECG #1: Attestation: I personally reviewed and interpreted this ECG as follows: ECG interpretation date: 07/27/20 ECG interpretation time: 11:52 Interpretation: Rate: 77 Rhythm: NSR [place]: normal Normal P waves. Normal ZAC. Normal QRS complex. ST T wave : nonspecific no ANALILIA qTC: prolonged prior studies: The study has been interpreted contemporaneously by me. . Discharge Plan Discharge Clinical Impression: Acute pain, Hypoxia Pneumonia Qualifiers: Pneumonia type: due to unspecified organism Laterality: bilateral Lung location: unspecified part of lung Qualified Code(s): J18.9 - Pneumonia, unspecified organism Patient Disposition: Admitted As Inpatient
[2020-07-27] MEDS: oxyCODONE HCl Immed Release 5 MG TABLET PO (12:27)
[2020-07-27 12:31] LABS: Basophils Absolute Auto 0.1 X10*3/uL (0.0-0.2); Basophils Percent Auto 0.6 % (0-2); Eosinophils Absolute Auto 0.1 X10*3/uL (0.0-0.4); Eosinophils Percent Auto 0.6 % (0-4); Hemoglobin 12.6 g/dl (12.0-16.0); Imm Gran Abs Auto 0.04 X10*3/uL (0.00-0.03); Imm Gran Pct Auto 0.4 % (0.0-0.4); Lymphocytes Absolute Auto 0.7 X10*3/uL (1.2-4.9); Lymphocytes Percent Auto 6.9 % (20-40); Mean Corpuscular HGB Conc 33.2 g/dl (31.0-35.0); Mean Corpuscular Hemoglobin 31.1 pg (27.0-33.0); Mean Corpuscular Volume 93.8 fL (80-98); Mean Platelet Volume 11.4 fL (9.4-12.3); Monocytes Absolute Auto 0.4 X10*3/uL (0.1-1.2); Monocytes Percent Auto 4.2 % (2-11); Neutrophils Absolute Auto 8.7 X10*3/uL (2.0-8.3); Neutrophils Percent Auto 87.3 % (45-73); Platelet Count 206 X10*3/uL (160-400); Red Blood Count 4.05 X10*6/uL (4.20-5.50); SCAN SMEAR FLAG 1; White Blood Count 9.9 X10*3/uL (4.8-10.8)
[2020-07-27 12:32] LABS: MANUAL DIFF FLAG NO
[2020-07-27 12:35] LABS: Glucose Urine UA 250 MG/DL (NEG); Leukocyte Esterase Urine NEG (NEG); Nitrite Urine NEG (NEG); Specific Gravity - Urine 1.015 (1.005-1.025); Urine Blood 1+ (NEG); Urine Ketones NEG (NEG); Urine Protein 2+ MG/DL (NEG-TRACE)
[2020-07-27 12:38] LABS: Appearance Urine CLEAR; Color Urine YELLOW
[2020-07-27 12:38] LABS: Partial Thromboplastin Time 32.9 SEC (24.1-38.0)
[2020-07-27 12:44] LABS: Squamous Epithelial Cell Urine TRACE /LPF; WBC Urine 0 /HPF (0-4)
[2020-07-27 12:46] LABS: COVID-19 Test Negative (Negative); IDNOW Serial# 9DD0AD1C
[2020-07-27 13:03] LABS: Troponin-I High Sensitivity 5.2 ng/L (<3.5-17.0)
[2020-07-27 13:06] LABS: Alanine Aminotransferase 18 U/L (0-31); Albumin Level 4.2 g/dL (3.5-5.0); Alkaline Phosphatase 183 U/L (39-117); Anion Gap 23 (12-20); Aspartate Amino Transferase 12 U/L (5-31); Bilirubin Direct 0.3 mg/dL (0.0-0.5); Bilirubin Total 0.6 mg/dL (0.0-1.0); Blood Urea Nitrogen 33 mg/dL (9-16); Calcium 7.9 mg/dL (8.4-10.2); Carbon Dioxide 23 mmol/L (22-29); Chloride 93 mmol/L (96-108); Creatinine Clr Calc Pharmacy 7.1; Estimated Glomerular Filt Rate 6; Glucose Random 199 mg/dL (60-115); Lipase 7 U/L (8-78); Potassium 4.6 mmol/l (3.3-5.1); Sodium 134 mmol/L (135-145); Total Protein 6.9 g/dL (6.5-8.0)
--- NOTE | 2020-07-27 13:30 | PC.NURSE ---
DR. MARTINEZ AT BEDSIDE DOING SIMPLE TURNING EXERCISE AT BEDSIDE WITH 02 OFF. PT DESAT TO 78% ON ROOM AIR. PT C/O EXTREME DIZZINESS WITH MOVEMENT.
--- NOTE | 2020-07-27 13:32 | PC.NURSE ---
O2 RE-APPLIED AT 2L/M VIA N/C. 02 98% ON 2L/M VIA N/C.
[2020-07-27 14:27] LABS: Lactate Dehydrogenase 315 U/L (122-220)
--- NOTE | 2020-07-27 14:31 | PM.IMHP ---
History of Present Illness Date of Service: 07/27/20 <Dalila Huizar NP - Last Filed: 07/27/20 15:59> Chief Complaint: Left rib pain <Dalila Huizar NP - Last Filed: 07/27/20 15:59> 70 year woman presented to the ER with complaints left lower rib pain radiating to her back. She reports that this started several days ago. She reported yesterday some nausea mostly dry heaves. Denied fever, chills, diarrhea. She does report history of end-stage renal disease on dialysis. She has not had any recent sick contacts although she does go to the dialysis center every Sunday, and Sunday. Because of the area of her pain she had a chest CT which showed ground-glass attenuation with no consolidation. V/Q scan was negative for PE. Coronavirus PCR was negative. While ambulating patient's oxygen saturation went down as 70%She was placed on oxygen. She was given a dose of Rocephin, azithromycin. To be admitted for further management and treatment of acute hypoxic respiratory failure. <Dalila Huizar NP - Last Filed: 07/27/20 15:59> Review of Systems Review of Systems: Denies any recent fever chills or decrease in appetite respiratory See HPI cardiovascular is adjustment of any PND or edema gastrointestinal denies any dysphagia abdominal pain nausea vomiting or diarrhea genitourinary denies any dysuria frequency or hematuria musculoskeletal See HPI neuropsych denies any weakness or seizures all other systems reviewed are negative <Dalila Huizar NP - Last Filed: 07/27/20 15:59> [facility] Medical History: Medical History Anxiety Arthropathy of right hip AV fistula Back pain Diabetes High cholesterol Hypertension Kidney failure <Dalila Huizar NP - Last Filed: 07/27/20 15:59> Family History: Family History Other Family history non-contributory <Dalila Huizar NP - Last Filed: 07/27/20 15:59> Surgical History: Surgical History H/O: hysterectomy <Dalila Huizar NP - Last Filed: 07/27/20 15:59> Social History: Social History Household Members: Spouse and Children Housing: House Alcohol intake: never Smoking Status: Never smoker service: No Current occupational status: retired <Dalila Huizar NP - Last Filed: 07/27/20 15:59> Meds Allergies/Adverse reactions: Allergies Allergy/AdvReac Type Severity Reaction Status Date / Time ciprofloxacin [From CIPRO] Allergy Unknown RASH Verified 08/01/20 23:59 Sulfa (Sulfonamide Allergy Unknown RASH Verified 08/01/20 23:59 Antibiotics) [SULFA (SULFONAMIDE ANTIBIOTICS)] sulfamethoxazole Allergy Unknown RASH Verified 08/01/20 23:59 [From Bactrim] trimethoprim [From Bactrim] Allergy Unknown RASH Verified 08/01/20 23:59 <Dalila Huizar NP - Last Filed: 07/27/20 15:59> Home medications: Home Medications Medication Instructions Recorded Confirmed Type Metamucil Fiber Singles 1 packet PO DAILY 07/27/20 07/27/20 History acetaminophen-codeine 2 tab PO TID 07/27/20 07/27/20 History amlodipine 1 tab PO DAILY 07/27/20 07/27/20 History bupropion HCl 1 tab PO QAM 07/27/20 07/27/20 History citalopram 1 tab PO DAILY 07/27/20 07/27/20 History gabapentin 1 cap PO DAILY 07/27/20 07/27/20 History hydralazine 1 tab PO DAILY 07/27/20 07/27/20 History insulin lispro [Humalog KwikPen 0 unit SUBCUT TIDAC 07/27/20 07/27/20 History Insulin] lorazepam 2 tab PO BEDTIME PRN 07/27/20 07/27/20 History metoprolol succinate 1 tab PO DAILY 07/27/20 07/27/20 History pravastatin 1 tab PO DAILY 07/27/20 07/27/20 History <Dalila Huizar NP - Last Filed: 07/27/20 15:59> Physical Exam Vital Signs and Narrative: Vital Signs: Last Vital Signs Temp 98.4 F 07/27/20 13:35 Pulse 74 07/27/20 13:35 Resp 19 07/27/20 13:35 BP 197/92 H 07/27/20 13:35 Pulse Ox 98 07/27/20 13:35 Body Mass Index 30.4 <Dalila Huizar NP - Last Filed: 07/27/20 15:59> Appearing in no acute distress head is normocephalic atraumatic eyes pupils are PERRLA sclera is anicteric mouth throat mucous membranes are intact and moist neck is supple no lymphadenopathy, no JVD noted lung sounds are clear to auscultation heart regular rate rhythm, clear S1, S2 positive bowel sounds, abdomen is soft, nontender neuro patient is alert x3, no focal deficits <Dalila Huizar NP - Last Filed: 07/27/20 15:59> Results Labs CBC and Chem 7: : 07/31/20 05:38 08/01/20 05:30 <Dalila Huizar NP - Last Filed: 07/27/20 15:59> Labs: Laboratory Results - last 24 hr 07/27/20 07/27/20 07/27/20 12:05 12:08 12:16 MCV 93.8 MCH 31.1 MCHC 33.2 RDW 14.0 Plt Count 206 MPV 11.4 Immature Gran % (Auto) 0.4 Neut % (Auto) 87.3 H Lymph % (Auto) 6.9 L [place] % (Auto) 4.2 Eos % (Auto) 0.6 Baso % (Auto) 0.6 Lymph # (Auto) 0.7 L [place] # (Auto) 0.4 Eos # (Auto) 0.1 Baso # (Auto) 0.1 Abs Immat Gran (auto) 0.04 H Absolute Neuts (auto) 8.7 H Absolute Nucleated RBC 0.000 Nucleated RBC % (auto) 0.0 PT INR APTT Anion Gap Estim Creat Clear Calc Estimated GFR Random Glucose Calcium Magnesium Total Bilirubin Direct Bilirubin AST ALT Alkaline Phosphatase Lactate Dehydrogenase Troponin I High Sens Total Protein Albumin Lipase Urine Color YELLOW Urine Appearance CLEAR Urine pH 8.0 Ur Specific [place] 1.015 Urine Protein 2+ H Urine Glucose (UA) 250 H Urine Ketones NEG Urine Blood 1+ H Urine Nitrite NEG Ur Leukocyte Esterase NEG Urine RBC 1-4 Urine WBC 0 Ur Squamous Epith Cells TRACE Urine Bacteria NONE COVID-19 (FANNIE) Negative COVID-19 Clin Com See Note 07/27/20 07/27/20 07/27/20 12:17 12:17 12:17 MCV MCH MCHC RDW Plt Count MPV Immature Gran % (Auto) Neut % (Auto) Lymph % (Auto) [place] % (Auto) Eos % (Auto) Baso % (Auto) Lymph # (Auto) [place] # (Auto) Eos # (Auto) Baso # (Auto) Abs Immat Gran (auto) Absolute Neuts (auto) Absolute Nucleated RBC Nucleated RBC % (auto) PT 12.0 INR 1.0 APTT 32.9 Anion Gap 23 H Estim Creat Clear Calc 7.1 Estimated GFR 6 Random Glucose 199 H Calcium 7.9 L Magnesium 2.0 Total Bilirubin 0.6 Direct Bilirubin 0.3 AST 12 ALT 18 Alkaline Phosphatase 183 H Lactate Dehydrogenase 315 H Troponin I High Sens 5.2 Total Protein 6.9 Albumin 4.2 Lipase 7 L Urine Color Urine Appearance Urine pH Ur Specific [place] Urine Protein Urine Glucose (UA) Urine Ketones Urine Blood Urine Nitrite Ur Leukocyte Esterase Urine RBC Urine WBC Ur Squamous Epith Cells Urine Bacteria COVID-19 (FANNIE) COVID-19 Clin Com <Dalila Huizar NP - Last Filed: 07/27/20 15:59> Imaging Radiologist's Impressions: Impressions Chest CT 07/27/20 10:16 IMPRESSION: Groundglass attenuation seen throughout both lungs with mild interstitial prominence and mild bronchiectasis both lungs of small airway disease. No consolidation seen. There is a small right pleural effusion. There are reactive mediastinal lymph nodes with largest short axis lymph node measuring 1.3 cm in precarinal space. Pulmonary Perfusion Imaging 07/27/20 10:16 IMPRESSION: Normal perfusion scan. <Dalila Huizar NP - Last Filed: 07/27/20 15:59> Assessment and Plan (1) Hypoxia: Status: Acute <Dalila Huizar NP - Last Filed: 07/27/20 15:59> 70-year-old woman initially presenting with pain to her left rib radiating to her back. Apparently she became hypoxic with ambulation down to 70%. She denies any history of COPD or asthma. Chest CT shows ground-glass attenuation without consolidation, V/Q scan negative for PE , coronavirus PCR negative. Multiple differential diagnoses include fluid overload, COVID-19 which was ruled out with PCR, PE which was ruled out with V/Q scan. Acute hypoxic respiratory failure. No history of asthma or COPD. No consolidation seen negative coronavirus near CR 12, no fever or leukocytosis. Continue supplemental oxygen therapy, BNP pending, will recheck COVID labs tomorrow. Will hold off on antibiotics or steroids at this time as no infectious sources seen. ESRD on dialysis. Seems to be fluid overload. She is due for dialysis today. Nephrology consultation. Dialysis T,TH,Sa. Hypertension. Amlodipine, hydralazine, metoprolol Diabetes mellitus. Sliding scale, ADA diet Discussed with Dr. Maldonado Full code <Dalila Huizar NP - Last Filed: 07/27/20 15:59>
[2020-07-27 14:49] LABS: Ferritin 883 ng/mL (10-250)
[2020-07-27 14:53] LABS: Procalcitonin 0.15 ng/mL
[2020-07-27 15:24] LABS: D Dimer 277 NG/ML
[2020-07-27 15:25] LABS: Lactic Acid 0.9 mmol/L (0.5-2.0)
--- NOTE | 2020-07-27 15:37 | PC.NURSE ---
call , braulio mckeon with updates [phone] updates given in wr at this time.
[2020-07-27 15:40] LABS: B Type Natriuretic Peptide 1152 pg/mL (<100)
[2020-07-27] MEDS: Lidocaine 4 % Patch ADH..PATCH 1 PATCH TRANSDERMA (15:46)
[2020-07-27] MEDS: Azithromycin 500 MG TABLET PO (15:46)
[2020-07-27] MEDS: dexAMETHasone sod phosphate 4 MG/ML VIAL IVPUSH (15:47)
[2020-07-27] MEDS: cefTRIAXone sodium 1 GM in 0.9 % Sodium Chloride 50 ML IV (15:47)
[2020-07-27] MEDS: hydrALAZINE HCl 20 MG/ML VIAL 10 MG IVPUSH (15:47)
[2020-07-27 15:57] LABS: Pt Ventilation O2% 1 L
[2020-07-27 16:00] LABS: ABG PCO2 40 mmhg (32-45); HCO3 ABG 23 mmol/l (22-26); PO2 ABG 58 mmhg (83-108); pH ABG 7.38 (7.35-7.45)
[2020-07-27 16:00] LABS: Influenza A PCR NEGATIVE (Negative); Influenza B PCR NEGATIVE (Negative); Resp Syncy Virus RNA Qual PCR NEGATIVE (Negative); SARS COV2 PCR INHOUSE NEGATIVE (Negative)
[2020-07-27 16:01] LABS: Oxygen Saturation ABG 90.9 %
[2020-07-27 17:39] LABS: Glucose, Whole Blood 166 mg/dL (60-115)
[2020-07-27] MEDS: ondansetron HCL 4 MG/2 ML VIAL IVPUSH (17:39)
[2020-07-27] MEDS: 0.9 % Sodium Chloride Flush 3 ML SYRINGE IVFLUSH ×3 (17:39→22:14)
--- NOTE | 2020-07-27 17:43 | P.EN_ITS ---
Event Note Date of Service: 07/27/20 Event Note: Patient seen examined case discussed with APC 70-year-old female patient with past medical history of end-stage renal disease on hemodialysis presented to [facility] due to left lower rib and back pain associated with dry cough and nausea of several days duration patient lives at home with family denies any sick contacts but go for dialysis 3 times per week patient workup in the ER showed ground-glass opacities on chest CT no consolidation V/Q scan is negative for PE miles PCR came back negative patient was noted to have low oxygenation around 70 with ambulation On examination no acute distress/dry heaving Lungs diminished breath sound fine crackles at bases Abdomen obese soft Extremities no edema Assessment and plan Acute hypoxic Respiratory failure no underlying history of asthma or COPD or CHF, BNP elevated question fluid overload with renal disease versus high suspicion for COVID despite COVID negative testing ldh 315, procalcitonin 0.15,ddimer 277 ,BNP 1152 CT chest with ground-glass attenuation both lungs with mild interstitial promine nce Will arrange for hemodialysis Repeat COVID test at a.m. Add cough medication, Incentive spirometry, oxygen support, hold dexamethasone, supportive care follow clinical course closely
[2020-07-27] MEDS: Acetaminophen 325 MG TABLET 650 MG PO (19:03)
[2020-07-27] MEDS: guaiFENesin DM 200/20/10 ML 10 ML SYRUP PO (19:03)
[2020-07-27] MEDS: LORazepam 0.5 MG TABLET 1 MG PO (23:50)
[2020-07-28] MEDS: LORazepam 0.5 MG TABLET 1 MG PO (01:05)
[2020-07-28 03:29] VITALS: BP 162/80; PULSE 84; RESP 17; TEMP 36.6; O2SAT 96
[2020-07-28] MEDS: traMADoL HCL 50 MG TABLET PO (04:20)
--- NOTE | 2020-07-28 05:02 | PC.NURSE ---
P-PT C/O 03/01 RIGHT HIP PAIN.HX OF RIGHT HIP REPLACEMENT.STATES WAS TURNED ON RIGHT SIDE WHEN SHE CAME IN AND NOW HAS A LOT OF IN R HIP I-DR. MORALES NOTIFIED ORDERED ULTRAM 50MG PO X 1 DOSE.GIVEN AT 0420 E-WILL CONTINUE TO MONITOR-D
[2020-07-28 06:56] LABS: Basophils Percent Auto 0.1 % (0-2); Hematocrit 36.6 % (37-47); Hemoglobin 12.3 g/dl (12.0-16.0); Imm Gran Abs Auto 0.03 X10*3/uL (0.00-0.03); Imm Gran Pct Auto 0.4 % (0.0-0.4); Lymphocytes Absolute Auto 0.6 X10*3/uL (1.2-4.9); Lymphocytes Percent Auto 8.2 % (20-40); MANUAL DIFF FLAG SCAN; Mean Corpuscular HGB Conc 33.6 g/dl (31.0-35.0); Mean Corpuscular Hemoglobin 31.2 pg (27.0-33.0); Mean Corpuscular Volume 92.9 fL (80-98); Mean Platelet Volume 12.2 fL (9.4-12.3); Monocytes Absolute Auto 0.3 X10*3/uL (0.1-1.2); Monocytes Percent Auto 3.6 % (2-11); Neutrophils Absolute Auto 6.4 X10*3/uL (2.0-8.3); Neutrophils Percent Auto 87.7 % (45-73); Platelet Count 215 X10*3/uL (160-400); Red Blood Count 3.94 X10*6/uL (4.20-5.50); Red Cell Distribution Width 13.5 % (11.0-16.0); SCAN SMEAR FLAG 1; White Blood Count 7.3 X10*3/uL (4.8-10.8)
[2020-07-28 07:11] LABS: Ferritin 755 ng/mL (10-250)
[2020-07-28 07:22] LABS: Anion Gap 30 (12-20); Blood Urea Nitrogen 41 mg/dL (9-16); Carbon Dioxide 14 mmol/L (22-29); Chloride 93 mmol/L (96-108); Creatinine Clr Calc Pharmacy 6.6; Estimated Glomerular Filt Rate 6; Glucose Random 169 mg/dL (60-115); Lactate Dehydrogenase 288 U/L (122-220); Potassium 4.6 mmol/l (3.3-5.1); Sodium 132 mmol/L (135-145)
[2020-07-28 08:00] VITALS: BP 142/66; PULSE 80; RESP 18; TEMP 36.6; O2SAT 97
[2020-07-28] MEDS: hydrALAZINE HCl 25 MG TABLET PO (08:26)
[2020-07-28] MEDS: 0.9 % Sodium Chloride Flush 3 ML SYRINGE IVFLUSH (08:27)
[2020-07-28] MEDS: amLODIPine Besylate 10 MG TABLET PO (08:27)
[2020-07-28] MEDS: buPROPion HCl XL 300 MG TAB.ER.24H PO (08:27)
[2020-07-28] MEDS: Metoprolol Succinate ER 100 MG TAB.ER.24H PO (08:27)
[2020-07-28] MEDS: Escitalopram Oxalate 10 MG TABLET PO (08:27)
[2020-07-28] MEDS: Pravastatin Sodium 20 MG TABLET PO (08:27)
[2020-07-28 08:32] LABS: Glucose, Whole Blood 142 mg/dL (60-115)
[2020-07-28 09:17] LABS: SLIDE REVIEW VERIFIED
[2020-07-28] MEDS: Gabapentin 100 MG CAPSULE PO (10:03)
[2020-07-28] MEDS: HYDROmorphone HCl 0.5 MG/0.5 ML SYRINGE 0.1 MG IVPUSH (11:20)
--- NOTE | 2020-07-28 12:15 | MHC.CM.PN ---
CM met with patient at the bedside who reports she is independent, amb with a walker and lives with her and son. Spouse Yousuf [phone] is HCP, copy requested. Discussed discharge plan, home with new referral to [facility]. will provide transport. IMM addressed. CM will continue to follow patient for discharge needs.
[2020-07-28 12:24] LABS: Glucose, Whole Blood 114 mg/dL (60-115)
--- NOTE | 2020-07-28 13:00 | PM.CNNEP ---
History of Present Illness Reason for Consult Consult date: 07/28/20 Chief Complaint Chief complaint: hypoxia History of Present Illness Narrative: 70 year old ESRD patient who gets Hemodialysis on TTS in [facility] who follows my associate Dr Cohn presented with SOB and was found to be hypoxic. She denies nausea, vomiting diarrhea, fever, chills or rigor. She denies contact with COVID patients. Her CXR showed ground glass appearance. She is need of renal replacement therapy. Nephrology has been consulted to lesvia in her clinical care Review of Systems Review of Systems Yes all other systems are reviewed and are negative [facility] Past Medical History Medical History Anxiety Arthropathy of right hip AV fistula Back pain Diabetes High cholesterol Hypertension Kidney failure Family History Family History Other Family history non-contributory Surgical History Surgical History H/O: hysterectomy Social History Social History Household Members: Spouse and Children Housing: House Do you presently have visiting nurse or other home services: No Alcohol intake: never Smoking Status: Never smoker Use of substances other than those prescribed or required for medical reasons: No Currently Displaying Signs/Symptoms of Drug Intoxication Withdrawal: No Have you been hit, kicked, punched, or otherwise hurt by someone within the past year? If so, by whom?: No Do you feel safe in your current relationship?: Yes Is there a partner from a previous relationship who is making you feel unsafe now?: No Are you made to feel afraid or neglected: No Advance Directives: No Advance Directives Information Provided: Yes Do you have thoughts of harming others: None Do you have a plan to hurt others: No Plan Recently lost weight without trying: No service: No Current occupational status: retired Meds Allergies Allergy/AdvReac Type Severity Reaction Status Date / Time ciprofloxacin [From CIPRO] Allergy Unknown RASH Unverified 04/08/20 15:02 Sulfa (Sulfonamide Allergy Unknown RASH Unverified 04/08/20 15:02 Antibiotics) [SULFA (SULFONAMIDE ANTIBIOTICS)] sulfamethoxazole Allergy Unknown RASH Unverified 04/08/20 15:02 [From Bactrim] trimethoprim [From Bactrim] Allergy Unknown RASH Unverified 04/08/20 15:02 Home Medications Medication Instructions Recorded Confirmed Type acetaminophen-codeine 2 tab PO TID 07/27/20 07/27/20 History amlodipine 1 tab PO DAILY 07/27/20 07/27/20 History bupropion HCl 1 tab PO QAM 07/27/20 07/27/20 History citalopram 1 tab PO DAILY 07/27/20 07/27/20 History gabapentin 1 cap PO DAILY 07/27/20 07/27/20 History hydralazine 1 tab PO DAILY 07/27/20 07/27/20 History insulin lispro [Humalog KwikPen 0 unit SUBCUT TIDAC 07/27/20 07/27/20 History Insulin] lorazepam 2 tab PO BEDTIME PRN 07/27/20 07/27/20 History metoprolol succinate 1 tab PO DAILY 07/27/20 07/27/20 History pravastatin 1 tab PO DAILY 07/27/20 07/27/20 History psyllium husk (aspartame) 1 packet PO DAILY 07/27/20 07/27/20 History [Metamucil Fiber Singles] Physical Exam Vital Signs: Last Vital Signs Temp 97.9 F 07/28/20 08:00 Pulse 80 07/28/20 08:00 Resp 18 07/28/20 08:00 BP 142/66 H 07/28/20 08:00 Pulse Ox 97 07/28/20 08:00 Body Mass Index 30.4 Const General: comfortable Neck Neck: Yes supple Resp Auscultation: diminished lung sounds Cardio Heart sounds: no rubs GI Palpation (GI): Soft to palpation Neuro General: moves all extremities Results Lab Results Result Diagrams: 07/28/20 04:34 07/28/20 04:34 Lab results: Chemistry 07/27/20 07/28/20 12:17 04:34 Sodium 134 L 132 L Potassium 4.6 4.6 Carbon Dioxide 23 14 L BUN 33 H 41 H Creatinine 6.39 H* 6.80 H* Calcium 7.9 L 8.0 L Hematology 07/27/20 07/28/20 12:16 04:34 WBC 9.9 7.3 Hgb 12.6 12.3 Plt Count 206 215 Urinalysis 07/27/20 12:05 Urine Color YELLOW Urine Appearance CLEAR Urine pH 8.0 Ur Specific [place] 1.015 Urine Protein 2+ H Urine Glucose (UA) 250 H Urine Ketones NEG Urine Blood 1+ H Urine Nitrite NEG Ur Leukocyte Esterase NEG Urine RBC 1-4 Urine WBC 0 Ur Squamous Epith Cells TRACE Assessment and Plan (1) ESRD (end stage renal disease) on dialysis: Problem details: Usually gets HD TTS( Dr Cohn) Shall dialyse her today and will put back on schedule tomorrow Renal Diet; Phos binders with meals Volume optimization on HD No indication for Procrit Shall closely follow up Status: Acute
--- NOTE | 2020-07-28 13:13 | PM.EVENT ---
Event Note Date of Service: 07/28/20 Event Note: Seen and examined on HD. Tolerating HD well. Hemodynamically stable on HD. Sid Aguilar MD
[2020-07-28 14:26] VITALS: BP 144/44; PULSE 71; RESP 20; TEMP 36.9; O2SAT 96
[2020-07-28 14:49] LABS: Adenovirus PCR Not Detected (Not Detect.); Bordetella parapertussis PCR Not Detected (Not Detect.); Bordetella pertussis PCR Not Detected (Not Detect.); Chlamydia pneumoniae PCR Not Detected (Not Detect.); Coronavirus 229E PCR Not Detected (Not Detect.); Coronavirus HKU1 PCR Not Detected (Not Detect.); Coronavirus NL63 PCR Not Detected (Not Detect.); Coronavirus OC43 PCR Not Detected (Not Detect.); Human metapneumovirus PCR Not Detected (Not Detect.); Influenza A PCR Not Detected (Not Detect.); Influenza B PCR Not Detected (Not Detect.); Mycoplasma pneumoniae PCR Not Detected (Not Detect.); Parainfluenza 1 PCR Not Detected (Not Detect.); Parainfluenza 2 PCR Not Detected (Not Detect.); Parainfluenza 3 PCR Not Detected (Not Detect.); Parainfluenza 4 PCR Not Detected (Not Detect.); RSV PCR Not Detected (Not Detect.); Rhino/Enterovirus PCR Not Detected (Not Detect.); SARS-CoV-2 PCR Not Detected (Not Detect.)
[2020-07-28 14:50] VITALS: BMI 30.4
[2020-07-28 15:27] VITALS: BP 150/78; PULSE 82; RESP 20; TEMP 37.2; O2SAT 98
--- NOTE | 2020-07-28 15:47 | W.PM.IDCN ---
History of Present Illness Data of Consult Service Date: 07/28/20 Primary Care Provider: Susan Buchanan MD [facility] Reason for consult: shortness of breath She presents to hospital with left sided 4/10 chest pain for two days She has no nausea,vomiting or diarrhea She has no known COVID exposure She is COVID negative PMFSH Past Medical History Medical History Anxiety Arthropathy of right hip AV fistula Back pain Diabetes High cholesterol Hypertension Kidney failure Family History Family History Other Family history non-contributory Family history: reviewed and not pertinent Surgical History Surgical History H/O: hysterectomy Social History Social History Household Members: Spouse and Children Housing: House Do you presently have visiting nurse or other home services: No Alcohol intake: never Smoking Status: Never smoker Use of substances other than those prescribed or required for medical reasons: No Currently Displaying Signs/Symptoms of Drug Intoxication Withdrawal: No Have you been hit, kicked, punched, or otherwise hurt by someone within the past year? If so, by whom?: No Do you feel safe in your current relationship?: Yes Is there a partner from a previous relationship who is making you feel unsafe now?: No Are you made to feel afraid or neglected: No Advance Directives: No Advance Directives Information Provided: Yes Do you have thoughts of harming others: None Do you have a plan to hurt others: No Plan Recently lost weight without trying: No service: No Current occupational status: retired Meds Allergies Allergy/AdvReac Type Severity Reaction Status Date / Time ciprofloxacin [From CIPRO] Allergy Unknown RASH Unverified 04/08/20 15:02 Sulfa (Sulfonamide Allergy Unknown RASH Unverified 04/08/20 15:02 Antibiotics) [SULFA (SULFONAMIDE ANTIBIOTICS)] sulfamethoxazole Allergy Unknown RASH Unverified 04/08/20 15:02 [From Bactrim] trimethoprim [From Bactrim] Allergy Unknown RASH Unverified 04/08/20 15:02 Home Medications Medication Instructions Recorded Confirmed Type acetaminophen-codeine 2 tab PO TID 07/27/20 07/27/20 History amlodipine 1 tab PO DAILY 07/27/20 07/27/20 History bupropion HCl 1 tab PO QAM 07/27/20 07/27/20 History citalopram 1 tab PO DAILY 07/27/20 07/27/20 History gabapentin 1 cap PO DAILY 07/27/20 07/27/20 History hydralazine 1 tab PO DAILY 07/27/20 07/27/20 History insulin lispro [Humalog KwikPen 0 unit SUBCUT TIDAC 07/27/20 07/27/20 History Insulin] lorazepam 2 tab PO BEDTIME PRN 07/27/20 07/27/20 History metoprolol succinate 1 tab PO DAILY 07/27/20 07/27/20 History pravastatin 1 tab PO DAILY 07/27/20 07/27/20 History psyllium husk (aspartame) 1 packet PO DAILY 07/27/20 07/27/20 History [Metamucil Fiber Singles] Physical Exam Vital Signs: Vital Signs: Last Vital Signs Temp 98.9 F 07/28/20 15:27 Pulse 82 07/28/20 15:27 Resp 20 07/28/20 15:27 BP 150/78 H 07/28/20 15:27 Pulse Ox 98 07/28/20 15:27 Body Mass Index 30.4 Const: General: cooperative Orientation/consciousness: oriented to person, oriented to place and oriented to time HENMT: Head: Yes normal to inspection Mouth: Normal oral and palatal mucosa present Eyes: General: appearance normal, both eyes and all related structures Resp: Effort & Inspection: normal respiratory effort Cardio: Rate: regular rate Rhythm: regular rhythm GI: Palpation (GI): Soft to palpation and nontender : General: Yes no CVA tenderness Back/Spine/Pelvis: Back: no CVA tenderness Skin: General skin exam: no rashes or lesions noted Neuro: General: oriented to person, oriented to place and oriented to time Extrem: General: Yes normal to inspection Assessment and Plan (1) Pneumonia: Qualifiers: Laterality: bilateral Lung location: unspecified part of lung Pneumonia type: due to unspecified organism Qualified Code(s): J18.9 - Pneumonia, unspecified organism Problem details: Shortness of breath There is concern over atypical organisms No COVID is seen ESRD Status: Acute Doxycycline 100 mg bid Check Legionella antigen (2) Hypoxia: Status: Acute (3) ESRD (end stage renal disease) on dialysis: Problem details: Usually gets HD TTS( Dr Cohn) Shall dialyse her today and will put back on schedule tomorrow Renal Diet; Phos binders with meals Volume optimization on HD No indication for Procrit Shall closely follow up Status: Acute Results Labs CBC & Chem 7: 07/28/20 04:34 07/28/20 04:34 Labs: Short CBC 07/28/20 Range/Units 04:34 WBC 7.3 (4.8-10.8) X10*3/uL Hgb 12.3 (12.0-16.0) g/dl Hct 36.6 L (37-47) % Plt Count 215 (160-400) X10*3/uL BMP 07/28/20 04:34 Sodium 132 L Potassium 4.6 Chloride 93 L Carbon Dioxide 14 L BUN 41 H Creatinine 6.80 H* Calcium 8.0 L
[2020-07-28 16:26] LABS: Glucose, Whole Blood 182 mg/dL (60-115)
[2020-07-28] MEDS: Insulin Lispro 100 UNIT/ML 3 ML VIAL SUBCUT (17:39)
--- NOTE | 2020-07-28 18:16 | P.PNIM_ITS ---
Subjective Subjective Date of Service: 07/28/20 Interval History: rib pain improved notes cough is chronic, going on 8-9 months no fever/chills undergoing HD today Physical Exam Vital Signs: Vital Signs: Last Vital Signs Temp 98.9 F 07/28/20 15:27 Pulse 82 07/28/20 15:27 Resp 20 07/28/20 15:27 BP 150/78 H 07/28/20 15:27 Pulse Ox 98 07/28/20 15:27 Body Mass Index 30.4 Gen: in no acute distress HEENT: sclera anicteric, moist mucus membranes Neck: supple Lungs: no respiratory distress, auscultation deferred due to COVID-19 Heart: normal peripheral pulses Abd: soft, non-tender, non-distended Ext: no cyanosis, clubbing, or edema Skin: warm/well-perfused Neuro: alert and oriented x3, no focal findings Psych: appropriate affect Objective Data Current Medications Generic Name Dose Route Start Last Admin Trade Name Freq PRN Reason Stop Dose Admin Acetaminophen 650 mg 07/27/20 17:13 07/27/20 19:03 Acetaminophen 325 Mg Tablet PO 650 mg Q6H PRN Administration Pain, Mild (Pain Scale 1-3) Acetaminophen/Codeine Phosphate 2 tab 07/27/20 21:00 07/28/20 14:25 Acetaminophen With Codeine # 3 Tablet PO 2 tab TID MARBELLA Administration Amlodipine Besylate 10 mg 07/28/20 09:00 07/28/20 08:27 Amlodipine Besylate 10 Mg Tablet PO 10 mg DAILY MARBELLA Administration Protocol Bupropion HCl 300 mg 07/28/20 09:00 07/28/20 08:27 Bupropion Hcl Xl 300 Mg Tab.Er.24h PO 300 mg DAILY MARBELLA Administration Doxycycline Hyclate 100 mg 07/28/20 18:00 07/28/20 17:39 Doxycycline Hyclate 100 Mg Tablet PO 100 mg Q12H MARBELLA Administration Escitalopram Oxalate 10 mg 07/28/20 09:00 07/28/20 08:27 Escitalopram Oxalate 10 Mg Tablet PO 10 mg DAILY MARBELLA Administration Gabapentin 100 mg 07/28/20 09:00 07/28/20 10:03 Gabapentin 100 Mg Capsule PO 100 mg DAILY MARBELLA Administration Guaifenesin/Dextromethorphan 10 ml 07/27/20 18:00 07/28/20 17:39 Guaifenesin Dm 200/20/10 Ml 10 Ml Syrup PO Not Given Q6H [facility] Hydralazine HCl 25 mg 07/28/20 09:00 07/28/20 08:26 Hydralazine Hcl 25 Mg Tablet PO 25 mg DAILY [facility] Administration Protocol Hydromorphone HCl 0.1 mg 07/28/20 09:33 07/28/20 11:20 Hydromorphone Hcl 0.5 Mg/0.5 Ml Syringe IVPUSH 0.1 mg Q4H PRN Administration pain,severe Insulin Human Lispro 0 unit 07/28/20 17:15 07/28/20 17:39 Insulin Lispro 100 Unit/Ml 3 Ml Vial SUBCUT 2 unit TIDAC [facility] Administration Protocol Lactulose 20 gm 07/28/20 09:32 Lactulose 20 Gm/30 Ml Solution PO Q24H PRN constipation Lorazepam 1 mg 07/27/20 17:13 07/28/20 01:05 Lorazepam 0.5 Mg Tablet PO 0.5 mg BEDTIME PRN Administration anxiety Metoprolol Succinate 100 mg 07/28/20 09:00 07/28/20 08:27 Metoprolol Succinate Er 100 Mg Tab.Er.24h PO 100 mg DAILY [facility] Administration Protocol Ondansetron HCl 4 mg 07/27/20 17:13 07/27/20 17:39 Ondansetron Hcl 4 Mg/2 Ml Vial IVPUSH 4 mg Q8H PRN Administration Nausea and Vomiting Pharmacy Consult 1 each 07/27/20 14:32 Consult Rx Perform Med Rec MISCELLANE ONCE PRN Consult order Pravastatin Sodium 20 mg 07/28/20 09:00 07/28/20 08:27 Pravastatin Sodium 20 Mg Tablet PO 20 mg DAILY [facility] Administration Psyllium Hydrophilic Mucilloid 3.4 gm 07/28/20 09:00 07/28/20 08:44 Psyllium Seed 3.4 Gm Powd.Pack PO Not Given DAILY [facility] Sodium Chloride 3 ml 07/27/20 17:13 07/28/20 08:27 0.9 % Sodium Chloride Flush 3 Ml Syringe IVFLUSH 3 ml QSHIFT [facility] Administration Labs CBC & Chem 7: 07/28/20 04:34 07/28/20 04:34 Labs: Laboratory Results - last 24 hr 07/28/20 07/28/20 07/28/20 04:34 04:34 08:26 WBC 7.3 RBC 3.94 L Hgb 12.3 Hct 36.6 L MCV 92.9 MCH 31.2 MCHC 33.6 RDW 13.5 Plt Count 215 MPV 12.2 Immature Gran % (Auto) 0.4 Neut % (Auto) 87.7 H Lymph % (Auto) 8.2 L [place] % (Auto) 3.6 Eos % (Auto) 0.0 Baso % (Auto) 0.1 Lymph # (Auto) 0.6 L [place] # (Auto) 0.3 Eos # (Auto) 0.0 Baso # (Auto) 0.0 Abs Immat Gran (auto) 0.03 Absolute Neuts (auto) 6.4 Absolute Nucleated RBC 0.000 Nucleated RBC % (auto) 0.0 Smear Tech's Comments VERIFIED Sodium 132 L Potassium 4.6 Chloride 93 L Carbon Dioxide 14 L Anion Gap 30 H BUN 41 H Creatinine 6.80 H* Estim Creat Clear Calc 6.6 Estimated GFR 6 POC Glucose 142 H Random Glucose 169 H Calcium 8.0 L Ferritin 755 H Lactate Dehydrogenase 288 H 07/28/20 07/28/20 12:20 16:13 WBC RBC Hgb Hct MCV MCH MCHC RDW Plt Count MPV Immature Gran % (Auto) Neut % (Auto) Lymph % (Auto) [place] % (Auto) Eos % (Auto) Baso % (Auto) Lymph # (Auto) [place] # (Auto) Eos # (Auto) Baso # (Auto) Abs Immat Gran (auto) Absolute Neuts (auto) Absolute Nucleated RBC Nucleated RBC % (auto) Smear Tech's Comments Sodium Potassium Chloride Carbon Dioxide Anion Gap BUN Creatinine Estim Creat Clear Calc Estimated GFR POC Glucose 114 182 H Random Glucose Calcium Ferritin Lactate Dehydrogenase Microbiology Microbiology Results: Microbiology 07/27/20 14:55 Blood - Venous Blood Culture - Preliminary No growth after 24 hours. 07/27/20 14:55 Blood - Venous Blood Culture - Preliminary No growth after 24 hours. Assessment and Plan (1) Ground glass opacity present on imaging of lung: Status: Acute (2) Pneumonia: Problem details: Shortness of breath There is concern over atypical organisms No COVID is seen ESRD Status: Acute (3) ESRD (end stage renal disease) on dialysis: Problem details: Usually gets HD TTS( Dr Cohn) Shall dialyse her today and will put back on schedule tomorrow Renal Diet; Phos binders with meals Volume optimization on HD No indication for Procrit Shall closely follow up Status: Acute (4) Hypoxia: Status: Acute Assessment and Plan: hospital d#2 70yo F with ESRD on HD, HTN, DM2 admitted with hypoxia, ground-glass pneumonia # ground-glass/atypical pneumonia - 2 molecular tests for COVID-19 negative; will check antibody to see if prior infection - ID consulted, check Legionella antigen and started doxycycline d#1 # acute hypoxic respiratory failure - wean O2 as tolerated # ESRD on HD - continue HD tiw # HTN - continue amlodipine, metoprolol, hydralazine # DM2 - continue correction-dose insulin # mood disorder - continue bupropion + escitalopram # VTE ppx - UFH
[2020-07-28 19:55] VITALS: BP 173/79; PULSE 82; RESP 18; TEMP 36.8; O2SAT 93
[2020-07-28] MEDS: Heparin Sodium,Porcine 5,000 UNIT/ML VIAL 5000 UNIT SUBCUT (20:05)
[2020-07-28 20:57] VITALS: BP 151/79
[2020-07-28 20:59] LABS: Glucose, Whole Blood 140 mg/dL (60-115)
[2020-07-28] MEDS: Acetaminophen 325 MG TABLET 650 MG PO (23:53)
[2020-07-28] MEDS: guaiFENesin DM 200/20/10 ML 10 ML SYRUP PO (23:53)
[2020-07-29] VITALS (11 sets, daily range): BP systolic 157–184; BP diastolic 72–85; PULSE 66–86; RESP 18–20; TEMP 36.7–37; O2SAT 93–99
[2020-07-29] MEDS: LORazepam 0.5 MG TABLET 1 MG PO (01:24)
[2020-07-29] MEDS: HYDROmorphone HCl 0.5 MG/0.5 ML SYRINGE 0.1 MG IVPUSH (04:36)
[2020-07-29] MEDS: hydrALAZINE HCl 20 MG/ML VIAL 5 MG IVPUSH (06:05)
[2020-07-29] MEDS: 0.9 % Sodium Chloride Flush 3 ML SYRINGE IVFLUSH ×2 (06:07→14:54)
[2020-07-29] MEDS: Heparin Sodium,Porcine 5,000 UNIT/ML VIAL 5000 UNIT SUBCUT ×2 (06:11→17:27)
[2020-07-29 06:44] LABS: MANUAL DIFF FLAG NO
[2020-07-29 07:16] LABS: Basophils Absolute Auto 0.1 X10*3/uL (0.0-0.2); Basophils Percent Auto 0.6 % (0-2); Eosinophils Absolute Auto 0.1 X10*3/uL (0.0-0.4); Eosinophils Percent Auto 1.6 % (0-4); Hematocrit 35.8 % (37-47); Hemoglobin 11.8 g/dl (12.0-16.0); Imm Gran Abs Auto 0.03 X10*3/uL (0.00-0.03); Imm Gran Pct Auto 0.3 % (0.0-0.4); Lymphocytes Absolute Auto 0.9 X10*3/uL (1.2-4.9); Mean Platelet Volume 12.3 fL (9.4-12.3); Monocytes Absolute Auto 0.7 X10*3/uL (0.1-1.2); Monocytes Percent Auto 8.2 % (2-11); Neutrophils Absolute Auto 6.9 X10*3/uL (2.0-8.3); Neutrophils Percent Auto 79.3 % (45-73); Platelet Count 194 X10*3/uL (160-400); Red Blood Count 3.81 X10*6/uL (4.20-5.50); Red Cell Distribution Width 13.6 % (11.0-16.0); White Blood Count 8.7 X10*3/uL (4.8-10.8)
[2020-07-29 07:29] LABS: Glucose, Whole Blood 155 mg/dL (60-115)
[2020-07-29] MEDS: Insulin Lispro 100 UNIT/ML 3 ML VIAL SUBCUT ×2 (07:40→17:25)
[2020-07-29] MEDS: Gabapentin 100 MG CAPSULE PO (08:18)
[2020-07-29] MEDS: Metoprolol Succinate ER 100 MG TAB.ER.24H PO (08:18)
[2020-07-29] MEDS: amLODIPine Besylate 10 MG TABLET PO (08:18)
[2020-07-29] MEDS: Pravastatin Sodium 20 MG TABLET PO (08:18)
[2020-07-29] MEDS: hydrALAZINE HCl 25 MG TABLET PO ×2 (08:18→17:29)
[2020-07-29] MEDS: Escitalopram Oxalate 10 MG TABLET PO (08:19)
[2020-07-29] MEDS: buPROPion HCl XL 300 MG TAB.ER.24H PO (08:19)
[2020-07-29 09:12] LABS: Procalcitonin 0.17 ng/mL
[2020-07-29 09:18] LABS: Anion Gap 22 (12-20); Blood Urea Nitrogen 29 mg/dL (9-16); C Reactive Protein 0.32 mg/dL (< or = 0.50); Carbon Dioxide 20 mmol/L (22-29); Chloride 94 mmol/L (96-108); Glucose Random 141 mg/dL (60-115); Potassium 4.6 mmol/l (3.3-5.1); Sodium 131 mmol/L (135-145)
[2020-07-29 10:09] LABS: SARS COV2 IgG Negative (Negative)
--- NOTE | 2020-07-29 10:16 | P.PNNP_ITS ---
Subjective Subjective Date of Service: 07/29/20 Interval history: Seen and examined on HD this AM. Hemodynamically stable on HD. D/W HD RN Physical Exam Vital Signs: Vital Signs: Last Vital Signs Temp 98.2 F 07/29/20 08:00 Pulse 78 07/29/20 08:18 Resp 18 07/29/20 08:00 BP 158/76 H 07/29/20 08:18 Pulse Ox 95 07/29/20 08:00 Body Mass Index 30.4 Const: General: comfortable Orientation/consciousness: patient oriented x3 Eyes: EOM: EOMs intact bilaterally Neck: Neck: Yes supple Resp: Auscultation: diminished lung sounds Cardio: Heart sounds: no rubs GI: Palpation (GI): Soft to palpation Neuro: General: patient oriented x3 Objective Data Labs CBC & Chem 7: 07/29/20 05:28 07/29/20 05:28 Labs: Laboratory Results - last 24 hr 07/28/20 07/28/20 07/28/20 12:20 14:31 16:13 WBC RBC Hgb Hct MCV MCH MCHC RDW Plt Count MPV Immature Gran % (Auto) Neut % (Auto) Lymph % (Auto) [place] % (Auto) Eos % (Auto) Baso % (Auto) Lymph # (Auto) [place] # (Auto) Eos # (Auto) Baso # (Auto) Abs Immat Gran (auto) Absolute Neuts (auto) Absolute Nucleated RBC Nucleated RBC % (auto) Sodium Potassium Chloride Carbon Dioxide Anion Gap BUN POC Glucose 114 182 H Random Glucose Calcium C-Reactive Protein Procalcitonin Respiratory Panel [place] See Note Adenovirus (Rapid PCR) Not Detected B.pert (TEM-PCR) Not Detected B.parapertussis DNA PCR Not Detected C. pneumoniae DNA (PCR) Not Detected Coronavirus OC43 (PCR) Not Detected Coronavirus HKU1 (PCR) Not Detected Coronavirus 229E (PCR) Not Detected Coronavirus NL63 (PCR) Not Detected Human Metapneumovir PCR Not Detected Influenza A (RT-PCR) Not Detected Influenza B (RT-PCR) Not Detected M. pneumoniae (PCR) Not Detected Parainfluenza 1 (PCR) Not Detected Parainfluenza 2 (PCR) Not Detected Parainfluenza 3 (PCR) Not Detected Parainfluenza 4 (PCR) Not Detected RSV (PCR) Not Detected Entero/Rhino (PCR) Not Detected SARS-CoV-2 RNA (RT-PCR) Not Detected SARS-CoV-2 IgG Ab 07/28/20 07/29/20 07/29/20 20:53 05:28 05:28 WBC 8.7 RBC 3.81 L Hgb 11.8 L Hct 35.8 L MCV 94.0 MCH 31.0 MCHC 33.0 RDW 13.6 Plt Count 194 MPV 12.3 Immature Gran % (Auto) 0.3 Neut % (Auto) 79.3 H Lymph % (Auto) 10.0 L [place] % (Auto) 8.2 Eos % (Auto) 1.6 Baso % (Auto) 0.6 Lymph # (Auto) 0.9 L [place] # (Auto) 0.7 Eos # (Auto) 0.1 Baso # (Auto) 0.1 Abs Immat Gran (auto) 0.03 Absolute Neuts (auto) 6.9 Absolute Nucleated RBC 0.000 Nucleated RBC % (auto) 0.0 Sodium 131 L Potassium 4.6 Chloride 94 L Carbon Dioxide 20 L Anion Gap 22 H BUN 29 H POC Glucose 140 H Random Glucose 141 H Calcium 8.0 L C-Reactive Protein 0.32 Procalcitonin Respiratory Panel [place] Adenovirus (Rapid PCR) B.pert (TEM-PCR) B.parapertussis DNA PCR C. pneumoniae DNA (PCR) Coronavirus OC43 (PCR) Coronavirus HKU1 (PCR) Coronavirus 229E (PCR) Coronavirus NL63 (PCR) Human Metapneumovir PCR Influenza A (RT-PCR) Influenza B (RT-PCR) M. pneumoniae (PCR) Parainfluenza 1 (PCR) Parainfluenza 2 (PCR) Parainfluenza 3 (PCR) Parainfluenza 4 (PCR) RSV (PCR) Entero/Rhino (PCR) SARS-CoV-2 RNA (RT-PCR) SARS-CoV-2 IgG Ab 07/29/20 07/29/20 07/29/20 05:28 05:28 07:25 WBC RBC Hgb Hct MCV MCH MCHC RDW Plt Count MPV Immature Gran % (Auto) Neut % (Auto) Lymph % (Auto) [place] % (Auto) Eos % (Auto) Baso % (Auto) Lymph # (Auto) [place] # (Auto) Eos # (Auto) Baso # (Auto) Abs Immat Gran (auto) Absolute Neuts (auto) Absolute Nucleated RBC Nucleated RBC % (auto) Sodium Potassium Chloride Carbon Dioxide Anion Gap BUN POC Glucose 155 H Random Glucose Calcium C-Reactive Protein Procalcitonin 0.17 Respiratory Panel [place] Adenovirus (Rapid PCR) B.pert (TEM-PCR) B.parapertussis DNA PCR C. pneumoniae DNA (PCR) Coronavirus OC43 (PCR) Coronavirus HKU1 (PCR) Coronavirus 229E (PCR) Coronavirus NL63 (PCR) Human Metapneumovir PCR Influenza A (RT-PCR) Influenza B (RT-PCR) M. pneumoniae (PCR) Parainfluenza 1 (PCR) Parainfluenza 2 (PCR) Parainfluenza 3 (PCR) Parainfluenza 4 (PCR) RSV (PCR) Entero/Rhino (PCR) SARS-CoV-2 RNA (RT-PCR) SARS-CoV-2 IgG Ab Negative Microbiology Microbiology Results: Microbiology 07/27/20 14:55 Blood - Venous Blood Culture - Preliminary No growth after 24 hours. 07/27/20 14:55 Blood - Venous Blood Culture - Preliminary No growth after 24 hours. Assessment & Plan Assessment and plan (1) ESRD (end stage renal disease) on dialysis: Problem details: Usually gets HD TTS( Dr Cohn) Seen and examined on HD this AM Renal Diet; Phos binders with meals Volume optimization on HD No indication for Procrit Shall closely follow up Status: Acute (2) Pneumonia: Problem details: Shortness of breath There is concern over atypical organisms No COVID is seen; On antibiotics Status: Acute Time Spent With Patient Time: Total time spent is greater than 50% in coordination of care (as documented) at patient's floor/unit and/or counseling patient:
[2020-07-29 10:53] LABS: Creatinine Clr Calc Pharmacy 8.7; Estimated Glomerular Filt Rate 8
[2020-07-29] MEDS: HYDROmorphone HCl 0.5 MG/0.5 ML SYRINGE 0.2 MG IVPUSH ×2 (12:53→20:06)
--- NOTE | 2020-07-29 12:55 | HO.PM.IMPN ---
Subjective Subjective Date of Service: 07/29/20 Interval History: cough somewhat improved, still on O2 1L via NC c/o hip pain related to positioning in bed no fever/chills HD today Physical Exam Vital Signs: Vital Signs: Last Vital Signs Temp 98.2 F 07/29/20 08:00 Pulse 78 07/29/20 08:18 Resp 18 07/29/20 08:00 BP 158/76 H 07/29/20 08:18 Pulse Ox 95 07/29/20 08:00 Body Mass Index 30.4 Gen: in no acute distress HEENT: sclera anicteric, moist mucus membranes Neck: supple Lungs: no respiratory distress, auscultation deferred due to COVID-19 concerns Heart: normal peripheral pulses Abd: soft, non-tender, non-distended Ext: no cyanosis, clubbing, or edema Skin: warm/well-perfused Neuro: alert and oriented x3, no focal findings Psych: appropriate affect Objective Data Current Medications Generic Name Dose Route Start Last Admin Trade Name Freq PRN Reason Stop Dose Admin Acetaminophen 650 mg 07/27/20 17:13 07/28/20 23:53 Acetaminophen 325 Mg Tablet PO 650 mg Q6H PRN Administration Pain, Mild (Pain Scale 1-3) Acetaminophen/Codeine Phosphate 2 tab 07/27/20 21:00 07/29/20 08:16 Acetaminophen With Codeine # 3 Tablet PO 2 tab TID MARBELLA Administration Amlodipine Besylate 10 mg 07/28/20 09:00 07/29/20 08:18 Amlodipine Besylate 10 Mg Tablet PO 10 mg DAILY [facility] Administration Protocol Bupropion HCl 300 mg 07/28/20 09:00 07/29/20 08:19 Bupropion Hcl Xl 300 Mg Tab.Er.24h PO 300 mg DAILY [facility]A Administration Doxycycline Hyclate 100 mg 07/28/20 18:00 07/29/20 06:14 Doxycycline Hyclate 100 Mg Tablet PO 100 mg Q12H [facility] Administration Escitalopram Oxalate 10 mg 07/28/20 09:00 07/29/20 08:19 Escitalopram Oxalate 10 Mg Tablet PO 10 mg DAILY [facility] Administration Gabapentin 100 mg 07/28/20 09:00 07/29/20 08:18 Gabapentin 100 Mg Capsule PO 100 mg DAILY [facility] Administration Guaifenesin/Dextromethorphan 10 ml 07/27/20 18:00 07/29/20 06:19 Guaifenesin Dm 200/20/10 Ml 10 Ml Syrup PO Not Given Q6H [facility] Heparin Sodium (Porcine) 5,000 unit 07/28/20 19:00 07/29/20 06:11 Heparin Sodium,Porcine 5,000 Unit/Ml Vial SUBCUT 5,000 unit Q12H [facility] Administration Hydralazine HCl 25 mg 07/29/20 17:30 Hydralazine Hcl 25 Mg Tablet PO BIDPC [facility] Protocol Hydromorphone HCl 0.2 mg 07/29/20 12:34 Hydromorphone Hcl 0.5 Mg/0.5 Ml Syringe IVPUSH Q4H PRN pain,severe Insulin Human Lispro 0 unit 07/28/20 17:15 07/29/20 07:40 Insulin Lispro 100 Unit/Ml 3 Ml Vial SUBCUT 2 unit TIDAC [facility] Administration Protocol Lactulose 20 gm 07/28/20 09:32 Lactulose 20 Gm/30 Ml Solution PO Q24H PRN constipation Lorazepam 1 mg 07/27/20 17:13 07/29/20 01:24 Lorazepam 0.5 Mg Tablet PO 1 mg BEDTIME PRN Administration anxiety Metoprolol Succinate 100 mg 07/28/20 09:00 07/29/20 08:18 Metoprolol Succinate Er 100 Mg Tab.Er.24h PO 100 mg DAILY [facility] Administration Protocol Ondansetron HCl 4 mg 07/27/20 17:13 07/27/20 17:39 Ondansetron Hcl 4 Mg/2 Ml Vial IVPUSH 4 mg Q8H PRN Administration Nausea and Vomiting Pharmacy Consult 1 each 07/27/20 14:32 Consult Rx Perform Med Rec MISCELLANE ONCE PRN Consult order Pravastatin Sodium 20 mg 07/28/20 09:00 07/29/20 08:18 Pravastatin Sodium 20 Mg Tablet PO 20 mg DAILY [facility] Administration Psyllium Hydrophilic Mucilloid 3.4 gm 07/28/20 09:00 07/29/20 08:19 Psyllium Seed 3.4 Gm Powd.Pack PO 3.4 gm DAILY [facility] Administration Sodium Chloride 3 ml 07/27/20 17:13 07/29/20 06:07 0.9 % Sodium Chloride Flush 3 Ml Syringe IVFLUSH 3 ml QSHIFT [facility] Administration Labs CBC & Chem 7: 07/29/20 05:28 07/29/20 05:28 Microbiology Microbiology Results: Microbiology 07/27/20 14:55 Blood - Venous Blood Culture - Preliminary No growth after 24 hours. 07/27/20 14:55 Blood - Venous Blood Culture - Preliminary No growth after 24 hours. Assessment and Plan (1) Ground glass opacity present on imaging of lung: Status: Acute (2) Pneumonia: Status: Acute (3) ESRD (end stage renal disease) on dialysis: Status: Acute (4) Hypoxia: Status: Acute Assessment and Plan: hospital d#3 70yo F with ESRD on HD, HTN, DM2 admitted with hypoxia, ground-glass pneumonia # ground-glass/atypical pneumonia - 3 molecular tests for COVID-19 negative and IgG negative indicated no prior infection - ID consulted, Legionella antigen pending, doxycycline d#2 # acute hypoxic respiratory failure - wean O2 as tolerated # ESRD on HD - continue HD tiw # HTN - continue amlodipine, metoprolol, hydralazine # DM2 - continue correction-dose insulin # mood disorder - continue bupropion + escitalopram # VTE ppx - UFH
[2020-07-29 12:59] LABS: Glucose, Whole Blood 122 mg/dL (60-115)
[2020-07-29 17:20] LABS: Glucose, Whole Blood 166 mg/dL (60-115)
[2020-07-29 20:30] LABS: Glucose, Whole Blood 111 mg/dL (60-115)
[2020-07-30] VITALS (9 sets, daily range): BP systolic 116–170; BP diastolic 58–86; PULSE 64–75; RESP 16–20; TEMP 36.6–36.9; O2SAT 94–96
[2020-07-30] MEDS: HYDROmorphone HCl 0.5 MG/0.5 ML SYRINGE 0.2 MG IVPUSH ×2 (01:10→06:09)
[2020-07-30] MEDS: 0.9 % Sodium Chloride Flush 3 ML SYRINGE IVFLUSH ×4 (01:11→21:02)
[2020-07-30] MEDS: LORazepam 0.5 MG TABLET 1 MG PO (02:10)
[2020-07-30] MEDS: Heparin Sodium,Porcine 5,000 UNIT/ML VIAL 5000 UNIT SUBCUT ×2 (06:09→18:06)
[2020-07-30 08:01] LABS: Glucose, Whole Blood 164 mg/dL (60-115)
[2020-07-30] MEDS: ondansetron HCL 4 MG/2 ML VIAL IVPUSH (08:27)
[2020-07-30] MEDS: Insulin Lispro 100 UNIT/ML 3 ML VIAL SUBCUT (08:34)
[2020-07-30] MEDS: Metoprolol Succinate ER 100 MG TAB.ER.24H PO (08:37)
[2020-07-30] MEDS: Escitalopram Oxalate 10 MG TABLET PO (08:38)
[2020-07-30] MEDS: buPROPion HCl XL 300 MG TAB.ER.24H PO (08:38)
[2020-07-30] MEDS: Gabapentin 100 MG CAPSULE PO (08:38)
[2020-07-30] MEDS: Pravastatin Sodium 20 MG TABLET PO (08:38)
[2020-07-30] MEDS: hydrALAZINE HCl 25 MG TABLET PO ×2 (08:38→16:58)
[2020-07-30] MEDS: amLODIPine Besylate 10 MG TABLET PO (08:38)
[2020-07-30 11:39] LABS: Glucose, Whole Blood 140 mg/dL (60-115)
[2020-07-30] MEDS: Lidocaine 4 % Patch ADH..PATCH 2 PATCH TRANSDERMA (11:41)
--- NOTE | 2020-07-30 12:28 | P.PNIM_ITS ---
Subjective Subjective Date of Service: 07/30/20 Interval History: ongoing R hip pain, prior YOVANI there also c/o L rib cage pain related to coughing breathing improved depressed but denies SI Physical Exam Vital Signs: Vital Signs: Last Vital Signs Temp 97.8 F 07/30/20 08:00 Pulse 72 07/30/20 08:38 Resp 20 07/30/20 08:00 BP 170/60 H 07/30/20 08:38 Pulse Ox 95 07/30/20 08:00 Body Mass Index 30.4 Gen: in no acute distress HEENT: sclera anicteric, moist mucus membranes Neck: supple Lungs: no respiratory distress, lungs clear B Heart: normal peripheral pulses Abd: soft, non-tender, non-distended Ext: no cyanosis, clubbing, or edema Skin: warm/well-perfused Neuro: alert and oriented x3, no focal findings Psych: appropriate affect Objective Data Current Medications Generic Name Dose Route Start Last Admin Trade Name Freq PRN Reason Stop Dose Admin Acetaminophen 650 mg 07/27/20 17:13 07/28/20 23:53 Acetaminophen 325 Mg Tablet PO 650 mg Q6H PRN Administration Pain, Mild (Pain Scale 1-3) Acetaminophen/Codeine Phosphate 2 tab 07/27/20 21:00 07/30/20 08:38 Acetaminophen With Codeine # 3 Tablet PO 2 tab TID [facility] Administration Amlodipine Besylate 10 mg 07/28/20 09:00 07/30/20 08:38 Amlodipine Besylate 10 Mg Tablet PO 10 mg DAILY [facility] Administration Protocol Bupropion HCl 300 mg 07/28/20 09:00 07/30/20 08:38 Bupropion Hcl Xl 300 Mg Tab.Er.24h PO 300 mg DAILY [facility] Administration Doxycycline Hyclate 100 mg 07/28/20 18:00 07/30/20 06:09 Doxycycline Hyclate 100 Mg Tablet PO 100 mg Q12H [facility] Administration Escitalopram Oxalate 10 mg 07/28/20 09:00 07/30/20 08:38 Escitalopram Oxalate 10 Mg Tablet PO 10 mg DAILY [facility] Administration Gabapentin 100 mg 07/28/20 09:00 07/30/20 08:38 Gabapentin 100 Mg Capsule PO 100 mg DAILY [facility] Administration Guaifenesin/Dextromethorphan 10 ml 07/27/20 18:00 07/30/20 11:45 Guaifenesin Dm 200/20/10 Ml 10 Ml Syrup PO Not Given Q6H [facility] Heparin Sodium (Porcine) 5,000 unit 07/28/20 19:00 07/30/20 06:09 Heparin Sodium,Porcine 5,000 Unit/Ml Vial SUBCUT 5,000 unit Q12H [facility] Administration Hydralazine HCl 25 mg 07/29/20 17:30 07/30/20 08:38 Hydralazine Hcl 25 Mg Tablet PO 25 mg BIDPC [facility] Administration Protocol Hydromorphone HCl 0.2 mg 07/29/20 12:34 07/30/20 06:09 Hydromorphone Hcl 0.5 Mg/0.5 Ml Syringe IVPUSH 0.2 mg Q4H PRN Administration pain,severe Insulin Human Lispro 0 unit 07/28/20 17:15 07/30/20 11:40 Insulin Lispro 100 Unit/Ml 3 Ml Vial SUBCUT Not Given TIDAC [facility] Protocol Lactulose 20 gm 07/28/20 09:32 Lactulose 20 Gm/30 Ml Solution PO Q24H PRN constipation Lidocaine 2 patch 07/30/20 11:45 07/30/20 11:41 Lidocaine 4 % Patch Adh..Patch TRANSDERMA 2 patch DAILY [facility] Administration Protocol Lorazepam 1 mg 07/27/20 17:13 07/30/20 02:10 Lorazepam 0.5 Mg Tablet PO 1 mg BEDTIME PRN Administration anxiety Metoprolol Succinate 100 mg 07/28/20 09:00 07/30/20 08:37 Metoprolol Succinate Er 100 Mg Tab.Er.24h PO 100 mg DAILY [facility] Administration Protocol Ondansetron HCl 4 mg 07/27/20 17:13 07/30/20 08:27 Ondansetron Hcl 4 Mg/2 Ml Vial IVPUSH 4 mg Q8H PRN Administration Nausea and Vomiting Pharmacy Consult 1 each 07/27/20 14:32 Consult Rx Perform Med Rec MISCELLANE ONCE PRN Consult order Pravastatin Sodium 20 mg 07/28/20 09:00 07/30/20 08:38 Pravastatin Sodium 20 Mg Tablet PO 20 mg DAILY [facility] Administration Psyllium Hydrophilic Mucilloid 3.4 gm 07/28/20 09:00 07/30/20 08:42 Psyllium Seed 3.4 Gm Powd.Pack PO Not Given DAILY [facility] Sodium Chloride 3 ml 07/27/20 17:13 07/30/20 08:30 0.9 % Sodium Chloride Flush 3 Ml Syringe IVFLUSH 3 ml QSHIFT [facility] Administration Labs CBC & Chem 7: 07/29/20 05:28 07/29/20 05:28 Labs: Laboratory Results - last 24 hr 07/29/20 07/29/20 07/29/20 12:53 17:10 20:14 POC Glucose 122 H 166 H 111 07/30/20 07/30/20 07:56 11:26 POC Glucose 164 H 140 H Microbiology Microbiology Results: Microbiology 07/27/20 14:55 Blood - Venous Blood Culture - Preliminary No growth after 48 hours. 07/27/20 14:55 Blood - Venous Blood Culture - Preliminary No growth after 48 hours. Assessment and Plan (1) Ground glass opacity present on imaging of lung: Status: Acute (2) Pneumonia: Status: Acute (3) ESRD (end stage renal disease) on dialysis: Status: Acute (4) Hypoxia: Status: Acute Assessment and Plan: hospital d#4 70yo F with ESRD on HD, HTN, DM2 admitted with hypoxia, ground-glass pneumonia, COVID-negative # ground-glass/atypical pneumonia - 3 molecular tests for COVID-19 negative and IgG negative indicated no prior infection - ID consulted, Legionella antigen pending, doxycycline d#3 # acute hypoxic respiratory failure - wean O2 as tolerated # ESRD on HD - continue HD tiw # HTN - continue amlodipine, metoprolol, hydralazine # DM2 - continue correction-dose insulin # mood disorder - continue bupropion + escitalopram # hip pain # rib pain related to coughing - prn Dilaudid, lidocaine patch # VTE ppx - UFH # dispo - anticipate home tomorrow with VNA if continues to improve
--- NOTE | 2020-07-30 12:31 | PM.PNNEP ---
Subjective Subjective Date of Service: 07/30/20 Interval history: Had HD yesterday Breathing improved Physical Exam Vital Signs: Vital Signs: Last Vital Signs Temp 97.8 F 07/30/20 08:00 Pulse 72 07/30/20 08:38 Resp 20 07/30/20 08:00 BP 170/60 H 07/30/20 08:38 Pulse Ox 95 07/30/20 08:00 Body Mass Index 30.4 Const: General: no acute distress Orientation/consciousness: patient oriented x3 Neck: Neck: Yes no JVD Resp: Auscultation: diminished lung sounds Cardio: Rate: regular rate GI: Palpation (GI): Soft to palpation Neuro: General: patient oriented x3 Objective Data Labs CBC & Chem 7: 07/29/20 05:28 07/29/20 05:28 Labs: Laboratory Results - last 24 hr 07/29/20 07/29/20 07/29/20 12:53 17:10 20:14 POC Glucose 122 H 166 H 111 07/30/20 07/30/20 07:56 11:26 POC Glucose 164 H 140 H Microbiology Microbiology Results: Microbiology 07/27/20 14:55 Blood - Venous Blood Culture - Preliminary No growth after 48 hours. 07/27/20 14:55 Blood - Venous Blood Culture - Preliminary No growth after 48 hours. Assessment & Plan Assessment and plan (1) ESRD (end stage renal disease) on dialysis: Problem details: Usually gets HD on TTS( [facility] Anayeli Cohn) Renal Diet; Phos binders with meals Continued volume optimization on HD No indication for Procrit now; Next HD tomorrow Concur with rest of current management Shall closely follow along Status: Acute Time Spent With Patient Time: Total time spent is greater than 50% in coordination of care (as documented) at patient's floor/unit and/or counseling patient:
--- NOTE | 2020-07-30 13:16 | MHC.CARE ---
CARE Team spoke with Hoda and provided her with OP information, she stated she is depressed because of her medical conditions. Stated she will like to go back to her therapist from [facility] in [place], phone numbers were provided for her to follow up with referral made.
--- NOTE | 2020-07-30 13:18 | MHC.CM.PN ---
Patient continues on 1 liter O2 via NC. Discharge plan is home with services from [facility]. will provide transportation. CM will continue to follow patient for discharge needs.
[2020-07-30 16:37] LABS: Glucose, Whole Blood 149 mg/dL (60-115)
[2020-07-30] MEDS: guaiFENesin DM 200/20/10 ML 10 ML SYRUP PO (16:58)
[2020-07-30 20:55] LABS: Glucose, Whole Blood 123 mg/dL (60-115)
[2020-07-31] VITALS (7 sets, daily range): BP systolic 139–168; BP diastolic 65–73; PULSE 62–84; RESP 18–20; TEMP 36.4–37.2; O2SAT 96–99
[2020-07-31] MEDS: guaiFENesin DM 200/20/10 ML 10 ML SYRUP PO ×3 (05:32→18:33)
[2020-07-31 06:45] LABS: MANUAL DIFF FLAG NO
[2020-07-31 07:01] LABS: Basophils Absolute Auto 0.1 X10*3/uL (0.0-0.2); Basophils Percent Auto 0.6 % (0-2); Eosinophils Absolute Auto 0.2 X10*3/uL (0.0-0.4); Hematocrit 36.5 % (37-47); Hemoglobin 12.3 g/dl (12.0-16.0); Imm Gran Abs Auto 0.04 X10*3/uL (0.00-0.03); Imm Gran Pct Auto 0.5 % (0.0-0.4); Lymphocytes Percent Auto 11.7 % (20-40); Mean Corpuscular HGB Conc 33.7 g/dl (31.0-35.0); Mean Corpuscular Hemoglobin 30.9 pg (27.0-33.0); Mean Corpuscular Volume 91.7 fL (80-98); Mean Platelet Volume 12.2 fL (9.4-12.3); Monocytes Absolute Auto 0.8 X10*3/uL (0.1-1.2); Monocytes Percent Auto 9.7 % (2-11); Neutrophils Absolute Auto 6.5 X10*3/uL (2.0-8.3); Neutrophils Percent Auto 75.5 % (45-73); Platelet Count 167 X10*3/uL (160-400); Red Blood Count 3.98 X10*6/uL (4.20-5.50); Red Cell Distribution Width 12.8 % (11.0-16.0); White Blood Count 8.7 X10*3/uL (4.8-10.8)
[2020-07-31 07:34] LABS: Procalcitonin 0.14 ng/mL
[2020-07-31] MEDS: Lidocaine 4 % Patch ADH..PATCH 2 PATCH TRANSDERMA (07:52)
[2020-07-31] MEDS: Gabapentin 100 MG CAPSULE PO (07:53)
[2020-07-31 08:12] LABS: Anion Gap 20 (12-20); Blood Urea Nitrogen 41 mg/dL (9-16); Calcium 8.2 mg/dL (8.4-10.2); Carbon Dioxide 18 mmol/L (22-29); Chloride 94 mmol/L (96-108); Estimated Glomerular Filt Rate 7; Glucose Random 137 mg/dL (60-115); Sodium 127 mmol/L (135-145)
[2020-07-31] MEDS: hydrALAZINE HCl 25 MG TABLET PO ×2 (10:28→17:34)
[2020-07-31] MEDS: Pravastatin Sodium 20 MG TABLET PO (10:28)
[2020-07-31] MEDS: amLODIPine Besylate 10 MG TABLET PO (10:28)
[2020-07-31] MEDS: buPROPion HCl XL 300 MG TAB.ER.24H PO (10:28)
[2020-07-31] MEDS: Escitalopram Oxalate 10 MG TABLET PO (10:29)
[2020-07-31] MEDS: Metoprolol Succinate ER 100 MG TAB.ER.24H PO (10:29)
[2020-07-31] MEDS: 0.9 % Sodium Chloride Flush 3 ML SYRINGE IVFLUSH ×2 (10:30→16:08)
[2020-07-31] MEDS: HYDROmorphone HCl 0.5 MG/0.5 ML SYRINGE 0.4 MG IVPUSH (11:00)
[2020-07-31 11:23] LABS: Glucose, Whole Blood 261 mg/dL (60-115)
--- NOTE | 2020-07-31 12:09 | P.PNIM_ITS ---
Subjective Subjective Date of Service: 07/31/20 Interval History: still c/o hip pain and lower left rib cage pain breathing improving had HD today Physical Exam Vital Signs: Vital Signs: Last Vital Signs Temp 98.9 F 07/31/20 04:00 Pulse 75 07/31/20 11:18 Resp 18 07/31/20 11:18 BP 165/73 H 07/31/20 11:18 Pulse Ox 97 07/31/20 11:18 Body Mass Index 30.4 Gen: in no acute distress HEENT: sclera anicteric, moist mucus membranes Neck: supple Lungs: no respiratory distress, lungs clear B Heart: normal peripheral pulses Abd: soft, non-tender, non-distended Ext: no cyanosis, clubbing, or edema Skin: warm/well-perfused Neuro: alert and oriented x3, no focal findings Psych: appropriate affect Objective Data Current Medications Generic Name Dose Route Start Last Admin Trade Name Freq PRN Reason Stop Dose Admin Acetaminophen 650 mg 07/27/20 17:13 07/28/20 23:53 Acetaminophen 325 Mg Tablet PO 650 mg Q6H PRN Administration Pain, Mild (Pain Scale 1-3) Acetaminophen/Codeine Phosphate 2 tab 07/27/20 21:00 07/31/20 07:53 Acetaminophen With Codeine # 3 Tablet PO 2 tab TID MARBELLA Administration Amlodipine Besylate 10 mg 07/28/20 09:00 07/31/20 10:28 Amlodipine Besylate 10 Mg Tablet PO 10 mg DAILY [facility] Administration Protocol Bupropion HCl 300 mg 07/28/20 09:00 07/31/20 10:28 Bupropion Hcl Xl 300 Mg Tab.Er.24h PO 300 mg DAILY [facility] Administration Doxycycline Hyclate 100 mg 07/28/20 18:00 07/31/20 05:32 Doxycycline Hyclate 100 Mg Tablet PO 100 mg Q12H [facility] Administration Escitalopram Oxalate 10 mg 07/28/20 09:00 07/31/20 10:29 Escitalopram Oxalate 10 Mg Tablet PO 10 mg DAILY [facility] Administration Gabapentin 100 mg 07/28/20 09:00 07/31/20 07:53 Gabapentin 100 Mg Capsule PO 100 mg DAILY [facility] Administration Guaifenesin/Dextromethorphan 10 ml 07/27/20 18:00 07/31/20 11:05 Guaifenesin Dm 200/20/10 Ml 10 Ml Syrup PO 10 ml Q6H [facility] Administration Heparin Sodium (Porcine) 5,000 unit 07/28/20 19:00 07/31/20 10:43 Heparin Sodium,Porcine 5,000 Unit/Ml Vial SUBCUT Not Given Q12H [facility] Hydralazine HCl 25 mg 07/29/20 17:30 07/31/20 10:28 Hydralazine Hcl 25 Mg Tablet PO 25 mg BIDPC [facility] Administration Protocol Hydromorphone HCl 0.4 mg 07/30/20 12:28 07/31/20 11:00 Hydromorphone Hcl 0.5 Mg/0.5 Ml Syringe IVPUSH 0.4 mg Q4H PRN Administration pain,severe Insulin Human Lispro 0 unit 07/28/20 17:15 07/31/20 10:29 Insulin Lispro 100 Unit/Ml 3 Ml Vial SUBCUT Not Given TIDAC [facility] Protocol Lactulose 20 gm 07/28/20 09:32 Lactulose 20 Gm/30 Ml Solution PO Q24H PRN constipation Lidocaine 2 patch 07/30/20 11:45 07/31/20 07:52 Lidocaine 4 % Patch Adh..Patch TRANSDERMA 2 patch DAILY [facility] Administration Protocol Lorazepam 1 mg 07/27/20 17:13 07/30/20 02:10 Lorazepam 0.5 Mg Tablet PO 1 mg BEDTIME PRN Administration anxiety Metoprolol Succinate 100 mg 07/28/20 09:00 07/31/20 10:29 Metoprolol Succinate Er 100 Mg Tab.Er.24h PO 100 mg DAILY [facility] Administration Protocol Ondansetron HCl 4 mg 07/27/20 17:13 07/30/20 08:27 Ondansetron Hcl 4 Mg/2 Ml Vial IVPUSH 4 mg Q8H PRN Administration Nausea and Vomiting Pharmacy Consult 1 each 07/27/20 14:32 Consult Rx Perform Med Rec MISCELLANE ONCE PRN Consult order Pravastatin Sodium 20 mg 07/28/20 09:00 07/31/20 10:28 Pravastatin Sodium 20 Mg Tablet PO 20 mg DAILY [facility] Administration Psyllium Hydrophilic Mucilloid 3.4 gm 07/28/20 09:00 07/31/20 10:31 Psyllium Seed 3.4 Gm Powd.Pack PO 3.4 gm DAILY [facility] Administration Sodium Chloride 3 ml 07/27/20 17:13 07/31/20 10:30 0.9 % Sodium Chloride Flush 3 Ml Syringe IVFLUSH 3 ml QSHIFT [facility] Administration Labs CBC & Chem 7: 07/31/20 05:38 07/31/20 05:38 Labs: Laboratory Results - last 24 hr 07/30/20 07/30/20 07/31/20 16:29 20:36 05:37 WBC RBC Hgb Hct MCV MCH MCHC RDW Plt Count MPV Immature Gran % (Auto) Neut % (Auto) Lymph % (Auto) [place] % (Auto) Eos % (Auto) Baso % (Auto) Lymph # (Auto) [place] # (Auto) Eos # (Auto) Baso # (Auto) Abs Immat Gran (auto) Absolute Neuts (auto) Absolute Nucleated RBC Nucleated RBC % (auto) Sodium Potassium Chloride Carbon Dioxide Anion Gap BUN Creatinine Estim Creat Clear Calc Estimated GFR POC Glucose 149 H 123 H Random Glucose Calcium Procalcitonin 0.14 07/31/20 07/31/20 07/31/20 05:38 05:38 11:16 WBC 8.7 RBC 3.98 L Hgb 12.3 Hct 36.5 L MCV 91.7 MCH 30.9 MCHC 33.7 RDW 12.8 Plt Count 167 MPV 12.2 Immature Gran % (Auto) 0.5 H Neut % (Auto) 75.5 H Lymph % (Auto) 11.7 L [place] % (Auto) 9.7 Eos % (Auto) 2.0 Baso % (Auto) 0.6 Lymph # (Auto) 1.0 L [place] # (Auto) 0.8 Eos # (Auto) 0.2 Baso # (Auto) 0.1 Abs Immat Gran (auto) 0.04 H Absolute Neuts (auto) 6.5 Absolute Nucleated RBC 0.000 Nucleated RBC % (auto) 0.0 Sodium 127 L Potassium 5.0 Chloride 94 L Carbon Dioxide 18 L Anion Gap 20 BUN 41 H Creatinine 5.66 H* Estim Creat Clear Calc 8.0 Estimated GFR 7 POC Glucose 261 H Random Glucose 137 H Calcium 8.2 L Procalcitonin Microbiology Microbiology Results: Microbiology 07/27/20 14:55 Blood - Venous Blood Culture - Preliminary No growth after 48 hours. 07/27/20 14:55 Blood - Venous Blood Culture - Preliminary No growth after 48 hours. Assessment and Plan (1) Ground glass opacity present on imaging of lung: Status: Acute (2) Pneumonia: Status: Acute (3) ESRD (end stage renal disease) on dialysis: Status: Acute (4) Hypoxia: Status: Acute Assessment and Plan: hospital d#5 70yo F with ESRD on HD, HTN, DM2 admitted with hypoxia, ground-glass pneumonia, COVID-negative # ground-glass/atypical pneumonia - 3 molecular tests for COVID-19 negative; IgG negative, indicating no prior infection - ID consulted, Legionella antigen pending, doxycycline d#10/27 # acute hypoxic respiratory failure - try to wean O2 today # hypoNa - HD today, recheck lytes tomorrow # ESRD on HD - continue HD TuThSa # HTN - continue amlodipine, metoprolol, hydralazine # DM2 - continue correction-dose insulin # mood disorder - continue bupropion + escitalopram # hip pain # rib pain related to coughing - prn Dilaudid, lidocaine patch # VTE ppx - UFH # dispo - anticipate home tomorrow with VNA if continues to improve
[2020-07-31] MEDS: Insulin Lispro 100 UNIT/ML 3 ML VIAL SUBCUT (13:06)
[2020-07-31 16:44] LABS: Glucose, Whole Blood 70 mg/dL (60-115)
[2020-07-31] MEDS: Acetaminophen 325 MG TABLET 650 MG PO (18:40)
--- NOTE | 2020-07-31 18:41 | PC.NURSE ---
pt states she is having pain and asking for pain medication. Pt states her pain is 4/10 and asks what she can have. Pt was informed she could have PRN tylenol. She states how much does it have to be for me to get the dilaudid? Discussed pain scale with pt and dangers of narcotic dependence. Pt states understanding. Will alert
[2020-07-31 21:51] LABS: Glucose, Whole Blood 195 mg/dL (60-115)
[2020-08-01] VITALS (8 sets, daily range): BP systolic 114–168; BP diastolic 58–82; PULSE 58–76; RESP 16–20; TEMP 36.1–36.6; O2SAT 95–98
[2020-08-01] MEDS: 0.9 % Sodium Chloride Flush 3 ML SYRINGE IVFLUSH ×4 (00:16→23:58)
[2020-08-01] MEDS: guaiFENesin DM 200/20/10 ML 10 ML SYRUP PO ×3 (00:17→23:58)
[2020-08-01] MEDS: Acetaminophen 325 MG TABLET 650 MG PO (00:22)
[2020-08-01] MEDS: HYDROmorphone HCl 0.5 MG/0.5 ML SYRINGE IVPUSH (05:43)
[2020-08-01] MEDS: ondansetron HCL 4 MG/2 ML VIAL IVPUSH (06:50)
[2020-08-01 07:59] LABS: Glucose, Whole Blood 185 mg/dL (60-115)
[2020-08-01] MEDS: Insulin Lispro 100 UNIT/ML 3 ML VIAL SUBCUT ×2 (08:21→17:32)
[2020-08-01 08:27] LABS: Anion Gap 18 (12-20); Blood Urea Nitrogen 31 mg/dL (9-16); Calcium 8.3 mg/dL (8.4-10.2); Carbon Dioxide 24 mmol/L (22-29); Chloride 94 mmol/L (96-108); Creatinine Clr Calc Pharmacy 9.9; Estimated Glomerular Filt Rate 9; Glucose Random 134 mg/dL (60-115); Potassium 4.4 mmol/l (3.3-5.1); Sodium 132 mmol/L (135-145)
[2020-08-01] MEDS: Metoprolol Succinate ER 100 MG TAB.ER.24H PO (09:45)
[2020-08-01] MEDS: buPROPion HCl XL 300 MG TAB.ER.24H PO (09:46)
[2020-08-01] MEDS: amLODIPine Besylate 10 MG TABLET PO (09:46)
[2020-08-01] MEDS: hydrALAZINE HCl 25 MG TABLET PO ×2 (09:46→17:38)
[2020-08-01] MEDS: Pravastatin Sodium 20 MG TABLET PO (09:46)
[2020-08-01] MEDS: Escitalopram Oxalate 10 MG TABLET PO (09:46)
[2020-08-01] MEDS: Lidocaine 4 % Patch ADH..PATCH 2 PATCH TRANSDERMA (09:46)
[2020-08-01] MEDS: Gabapentin 100 MG CAPSULE PO (09:46)
--- NOTE | 2020-08-01 09:56 | PM.PNNEP ---
Subjective Subjective Date of Service: 08/01/20 Interval history: still c/o hip pain and lower left rib cage pain breathing improving had HD yesterday constipated:no BM in 10 days Physical Exam Vital Signs: Vital Signs: Last Vital Signs Temp 97.1 F 08/01/20 05:15 Pulse 70 08/01/20 09:46 Resp 16 08/01/20 05:15 BP 151/62 H 08/01/20 09:46 Pulse Ox 95 08/01/20 05:15 Body Mass Index 30.4 Const: General: cooperative, comfortable and no acute distress Orientation/consciousness: oriented to person, oriented to place, oriented to time and patient oriented x3 HENMT: Head: Yes normal to inspection Mouth: Normal oral and palatal mucosa present Eyes: General: appearance normal, both eyes and all related structures EOM: EOMs intact bilaterally Neck: Neck: Yes supple and Yes no JVD Resp: Effort & Inspection: normal respiratory effort Auscultation: diminished lung sounds Cardio: Rate: regular rate Rhythm: regular rhythm Heart sounds: no rubs GI: Palpation (GI): Soft to palpation and nontender : General: Yes no CVA tenderness Back/Spine/Pelvis: Back: no CVA tenderness Skin: General skin exam: no rashes or lesions noted Neuro: General: oriented to person, oriented to place, oriented to time, patient oriented x3 and moves all extremities Extrem: General: Yes normal to inspection Objective Data Labs CBC & Chem 7: 07/31/20 05:38 08/01/20 05:30 Labs: Laboratory Results - last 24 hr 07/31/20 07/31/20 07/31/20 11:16 16:41 21:23 Sodium Potassium Chloride Carbon Dioxide Anion Gap BUN Creatinine Estim Creat Clear Calc Estimated GFR POC Glucose 261 H 70 195 H Random Glucose Calcium 08/01/20 08/01/20 05:30 07:56 Sodium 132 L Potassium 4.4 Chloride 94 L Carbon Dioxide 24 Anion Gap 18 BUN 31 H Creatinine 4.58 H* Estim Creat Clear Calc 9.9 Estimated GFR 9 POC Glucose 185 H Random Glucose 134 H Calcium 8.3 L Microbiology Microbiology Results: Microbiology 07/27/20 14:55 Blood - Venous Blood Culture - Preliminary No growth after 48 hours. 07/27/20 14:55 Blood - Venous Blood Culture - Preliminary No growth after 48 hours. Assessment & Plan Assessment and plan (1) ESRD (end stage renal disease) on dialysis: Problem details: Pt dialyzes at [facility] as outpatient on ; had dialysis yesterday; euvolemic; ready for discharge soon Status: Acute (2) Constipation: Problem details: Add lactulose which helps her as an outpatient; she does better when she is on her usual phos binder, auryxia Status: Acute Time Spent With Patient Time: Total time spent is greater than 50% in coordination of care (as documented) at patient's floor/unit and/or counseling patient:
--- NOTE | 2020-08-01 10:25 | P.F2F_ITS ---
Service Date Service Date: 08/01/20 Encounter Date of encounter: 08/01/20 Reasons for Services Reason for penitentiary: medication management, medication treatment and teach disease management Reason for physical therapy: home safety and mobility, therapeutic exercises, gait/transfer training, assess need for DME, ADL training and energy conservation Overseeing Care: Susan Buchanan Homebound: Leaving the home is medically contraindicated at this time without the asist of a device and/or another person due th the listed conditions above and below. Reason homebound: pain with ambulation, pain with transfers, immunosuppression / infection risk and weakness related to hospital stay Homebound supporting statement: Ms Quintanilla was admitted to [facility] 07/27-08/01/20 for atypical pneumonia. She tested negative for COVID-19 and was weaned off of oxygen. Certification: Based on the above findings, I certify that this patient is confined to the home and needs intermittent penitentiary care, physical therapy and/or speech therapy, or continues to need occupational therapy. The patient is under my care, and I have initiated the establishment of the plan of care. The patient will be followed by a physician who will periodically review the plan of care.
--- NOTE | 2020-08-01 10:27 | PM.DS ---
DS: Providers Provider Date of Service: 08/01/20 Date of admission: 07/27/20 15:45 Primary care physician: Susan Buchanan MD Consults: 07/27/20 14:44 Consult to Nephrology Routine Consulting Provider: Sid Aguilar Reason for consultation: ESRD dialysis t,th,sat. due today Has provider been notified: No 07/28/20 09:37 Consult to Infectious Diseases Routine Consulting Provider: Amaris Rodriguez Reason for consultation: GG pnuemonia ?COVID but PCR neg 07/30/20 12:27 Consult to Care Team Routine Comment: Reason for consultation: depressed, hopeless but not suicidal DS: Diagnosis Discharge Diagnosis (1) ESRD (end stage renal disease) on dialysis: Status: Acute (2) Constipation: Status: Acute (3) Ground glass opacity present on imaging of lung: Status: Acute (4) Pneumonia: Status: Acute (5) Hypoxia: Status: Acute DS: Medications Discharge Medications Home Medications: Home Medications Medication Instructions Recorded Confirmed Metamucil Fiber Singles 1 packet PO DAILY 07/27/20 07/27/20 acetaminophen-codeine 2 tab PO TID 07/27/20 07/27/20 amlodipine 1 tab PO DAILY 07/27/20 07/27/20 bupropion HCl 1 tab PO QAM 07/27/20 07/27/20 citalopram 1 tab PO DAILY 07/27/20 07/27/20 gabapentin 1 cap PO DAILY 07/27/20 07/27/20 hydralazine 1 tab PO DAILY 07/27/20 07/27/20 insulin lispro [Humalog KwikPen 0 unit SUBCUT TIDAC 07/27/20 07/27/20 Insulin] lorazepam 2 tab PO BEDTIME PRN 07/27/20 07/27/20 metoprolol succinate 1 tab PO DAILY 07/27/20 07/27/20 pravastatin 1 tab PO DAILY 07/27/20 07/27/20 Previous Rx's Medication Instructions Recorded doxycycline hyclate 100 mg PO Q12H #5 tab 08/01/20 lactulose 20 g PO Q24H PRN 450 Days #240 ml 08/01/20 lidocaine [Lidocaine Pain Relief] 2 patch TRANSDERMAL DAILY #15 ea 08/01/20 DS: Summary Hospital Course Hospital Course: from admission history and physical by hospitalist [employer] Dalila Huizar, 07/27/20: 70 year woman presented to the ER with complaints left lower rib pain radiating to her back. She reports that this started several days ago. She reported yesterday some nausea mostly dry heaves. Denied fever, chills, diarrhea. She does report history of end-stage renal disease on dialysis. She has not had any recent sick contacts although she does go to the dialysis center every Sunday, and Sunday. Because of the area of her pain she had a chest CT which showed ground-glass attenuation with no consolidation. V/Q scan was negative for PE. Coronavirus PCR was negative. While ambulating patient's oxygen saturation went down as 70%She was placed on oxygen. She was given a dose of Rocephin, azithromycin. To be admitted for further management and treatment of acute hypoxic respiratory failure. The patient was admitted to the [facility] on isolation precautions. However, 3 molecular tests for COVID-19 were negative and IgG was negative, indicating no prior infection. ID was consulted and she was treated with doxycycline for atypical pneumonia and discharged home to complete 7 days total. She was weaned off of oxygen. She underwent dialysis as per her home routine. She was discharged home with VNA services including home PT. Time Spent with Patient Time attestation: Total time spent providing and/or coordinating discharge services: 35 Discharge coordination time: Greater than 30 minutes Physical Exam Vital Signs: Vital Signs: Last Vital Signs Temp 97.1 F 08/01/20 05:15 Pulse 70 08/01/20 09:46 Resp 16 08/01/20 05:15 BP 151/62 H 08/01/20 09:46 Pulse Ox 95 08/01/20 05:15 Body Mass Index 30.4 Gen: in no acute distress HEENT: sclera anicteric, moist mucus membranes Neck: supple Lungs: clear to auscultation bilaterally Heart: regular rate and rhythm, no murmurs Abd: soft, non-tender, non-distended Ext: no edema Skin: warm/well-perfused Neuro: alert and oriented x3, no focal findings Psych: appropriate affect DS: Data Data Completed and Pending Labs on day of discharge: Laboratory Tests 07/27/20 07/27/20 07/27/20 12:05 12:08 12:16 WBC 9.9 RBC 4.05 L Hgb 12.6 Hct 38.0 MCV 93.8 MCH 31.1 MCHC 33.2 RDW 14.0 Plt Count 206 MPV 11.4 Immature Gran % (Auto) 0.4 Neut % (Auto) 87.3 H Lymph % (Auto) 6.9 L [place] % (Auto) 4.2 Eos % (Auto) 0.6 Baso % (Auto) 0.6 Lymph # (Auto) 0.7 L [place] # (Auto) 0.4 Eos # (Auto) 0.1 Baso # (Auto) 0.1 Abs Immat Gran (auto) 0.04 H Absolute Neuts (auto) 8.7 H Absolute Nucleated RBC 0.000 Nucleated RBC % (auto) 0.0 Smear Tech's Comments PT INR APTT D-Dimer ABG pH ABG pCO2 ABG pO2 ABG HCO3 ABG O2 Saturation ABG Base Excess Oxygen Given Sodium Potassium Chloride Carbon Dioxide Anion Gap BUN Creatinine Estim Creat Clear Calc Estimated GFR POC Glucose Random Glucose Lactic Acid Calcium Magnesium Ferritin Total Bilirubin Direct Bilirubin AST ALT Alkaline Phosphatase Lactate Dehydrogenase Troponin I High Sens C-Reactive Protein B-Natriuretic Peptide Total Protein Albumin Lipase Procalcitonin Urine Color YELLOW Urine Appearance CLEAR Urine pH 8.0 Ur Specific [place] 1.015 Urine Protein 2+ H Urine Glucose (UA) 250 H Urine Ketones NEG Urine Blood 1+ H Urine Nitrite NEG Ur Leukocyte Esterase NEG Urine RBC 1-4 Urine WBC 0 Ur Squamous Epith Cells TRACE Urine Bacteria NONE Respiratory Panel [place] Adenovirus (Rapid PCR) B.pert (TEM-PCR) B.parapertussis DNA PCR C. pneumoniae DNA (PCR) Coronavirus (PCR) Coronavirus OC43 (PCR) Coronavirus HKU1 (PCR) Coronavirus 229E (PCR) COVID-19 (FANNIE) Negative COVID-19 Clin Com See Note Coronavirus NL63 (PCR) Human Metapneumovir PCR Influenza A (RT-PCR) Influenza Type A (PCR) Influenza B (RT-PCR) Influenza Type B (PCR) M. pneumoniae (PCR) Parainfluenza 1 (PCR) Parainfluenza 2 (PCR) Parainfluenza 3 (PCR) Parainfluenza 4 (PCR) RSV (PCR) RSV RNA Qual (PCR) Entero/Rhino (PCR) SARS-CoV-2 RNA (RT-PCR) SARS-CoV-2 IgG Ab 07/27/20 07/27/20 07/27/20 12:17 12:17 12:17 WBC RBC Hgb Hct MCV MCH MCHC RDW Plt Count MPV Immature Gran % (Auto) Neut % (Auto) Lymph % (Auto) [place] % (Auto) Eos % (Auto) Baso % (Auto) Lymph # (Auto) [place] # (Auto) Eos # (Auto) Baso # (Auto) Abs Immat Gran (auto) Absolute Neuts (auto) Absolute Nucleated RBC Nucleated RBC % (auto) Smear Tech's Comments PT 12.0 INR 1.0 APTT 32.9 D-Dimer 277 ABG pH ABG pCO2 ABG pO2 ABG HCO3 ABG O2 Saturation ABG Base Excess Oxygen Given Sodium 134 L Potassium 4.6 Chloride 93 L Carbon Dioxide 23 Anion Gap 23 H BUN 33 H Creatinine 6.39 H* Estim Creat Clear Calc 7.1 Estimated GFR 6 POC Glucose Random Glucose 199 H Lactic Acid Calcium 7.9 L Magnesium 2.0 Ferritin 883 H Total Bilirubin 0.6 Direct Bilirubin 0.3 AST 12 ALT 18 Alkaline Phosphatase 183 H Lactate Dehydrogenase 315 H Troponin I High Sens 5.2 C-Reactive Protein B-Natriuretic Peptide 1152 H Total Protein 6.9 Albumin 4.2 Lipase 7 L Procalcitonin Urine Color Urine Appearance Urine pH Ur Specific [place] Urine Protein Urine Glucose (UA) Urine Ketones Urine Blood Urine Nitrite Ur Leukocyte Esterase Urine RBC Urine WBC Ur Squamous Epith Cells Urine Bacteria Respiratory Panel [place] Adenovirus (Rapid PCR) B.pert (TEM-PCR) B.parapertussis DNA PCR C. pneumoniae DNA (PCR) Coronavirus (PCR) Coronavirus OC43 (PCR) Coronavirus HKU1 (PCR) Coronavirus 229E (PCR) COVID-19 (FANNIE) COVID-19 Clin Com Coronavirus NL63 (PCR) Human Metapneumovir PCR Influenza A (RT-PCR) Influenza Type A (PCR) Influenza B (RT-PCR) Influenza Type B (PCR) M. pneumoniae (PCR) Parainfluenza 1 (PCR) Parainfluenza 2 (PCR) Parainfluenza 3 (PCR) Parainfluenza 4 (PCR) RSV (PCR) RSV RNA Qual (PCR) Entero/Rhino (PCR) SARS-CoV-2 RNA (RT-PCR) SARS-CoV-2 IgG Ab 07/27/20 07/27/20 07/27/20 12:17 14:55 15:06 WBC RBC Hgb Hct MCV MCH MCHC RDW Plt Count MPV Immature Gran % (Auto) Neut % (Auto) Lymph % (Auto) [place] % (Auto) Eos % (Auto) Baso % (Auto) Lymph # (Auto) [place] # (Auto) Eos # (Auto) Baso # (Auto) Abs Immat Gran (auto) Absolute Neuts (auto) Absolute Nucleated RBC Nucleated RBC % (auto) Smear Tech's Comments PT INR APTT D-Dimer ABG pH ABG pCO2 ABG pO2 ABG HCO3 ABG O2 Saturation ABG Base Excess Oxygen Given Sodium Potassium Chloride Carbon Dioxide Anion Gap BUN Creatinine Estim Creat Clear Calc Estimated GFR POC Glucose Random Glucose Lactic Acid 0.9 Calcium Magnesium Ferritin Total Bilirubin Direct Bilirubin AST ALT Alkaline Phosphatase Lactate Dehydrogenase Troponin I High Sens C-Reactive Protein B-Natriuretic Peptide Total Protein Albumin Lipase Procalcitonin 0.15 Urine Color Urine Appearance Urine pH Ur Specific [place] Urine Protein Urine Glucose (UA) Urine Ketones Urine Blood Urine Nitrite Ur Leukocyte Esterase Urine RBC Urine WBC Ur Squamous Epith Cells Urine Bacteria Respiratory Panel [place] Adenovirus (Rapid PCR) B.pert (TEM-PCR) B.parapertussis DNA PCR C. pneumoniae DNA (PCR) Coronavirus (PCR) NEGATIVE Coronavirus OC43 (PCR) Coronavirus HKU1 (PCR) Coronavirus 229E (PCR) COVID-19 (FANNIE) COVID-19 Clin Com Coronavirus NL63 (PCR) Human Metapneumovir PCR Influenza A (RT-PCR) Influenza Type A (PCR) NEGATIVE Influenza B (RT-PCR) Influenza Type B (PCR) NEGATIVE M. pneumoniae (PCR) Parainfluenza 1 (PCR) Parainfluenza 2 (PCR) Parainfluenza 3 (PCR) Parainfluenza 4 (PCR) RSV (PCR) RSV RNA Qual (PCR) NEGATIVE Entero/Rhino (PCR) SARS-CoV-2 RNA (RT-PCR) SARS-CoV-2 IgG Ab 07/27/20 07/27/20 07/28/20 15:40 17:22 04:34 WBC 7.3 RBC 3.94 L Hgb 12.3 Hct 36.6 L MCV 92.9 MCH 31.2 MCHC 33.6 RDW 13.5 Plt Count 215 MPV 12.2 Immature Gran % (Auto) 0.4 Neut % (Auto) 87.7 H Lymph % (Auto) 8.2 L [place] % (Auto) 3.6 Eos % (Auto) 0.0 Baso % (Auto) 0.1 Lymph # (Auto) 0.6 L [place] # (Auto) 0.3 Eos # (Auto) 0.0 Baso # (Auto) 0.0 Abs Immat Gran (auto) 0.03 Absolute Neuts (auto) 6.4 Absolute Nucleated RBC 0.000 Nucleated RBC % (auto) 0.0 Smear Tech's Comments VERIFIED PT INR APTT D-Dimer ABG pH 7.38 ABG pCO2 40 ABG pO2 58 L ABG HCO3 23 ABG O2 Saturation 90.9 ABG Base Excess -2.0 Oxygen Given 1 L Sodium Potassium Chloride Carbon Dioxide Anion Gap BUN Creatinine Estim Creat Clear Calc Estimated GFR POC Glucose 166 H Random Glucose Lactic Acid Calcium Magnesium Ferritin Total Bilirubin Direct Bilirubin AST ALT Alkaline Phosphatase Lactate Dehydrogenase Troponin I High Sens C-Reactive Protein B-Natriuretic Peptide Total Protein Albumin Lipase Procalcitonin Urine Color Urine Appearance Urine pH Ur Specific [place] Urine Protein Urine Glucose (UA) Urine Ketones Urine Blood Urine Nitrite Ur Leukocyte Esterase Urine RBC Urine WBC Ur Squamous Epith Cells Urine Bacteria Respiratory Panel [place] Adenovirus (Rapid PCR) B.pert (TEM-PCR) B.parapertussis DNA PCR C. pneumoniae DNA (PCR) Coronavirus (PCR) Coronavirus OC43 (PCR) Coronavirus HKU1 (PCR) Coronavirus 229E (PCR) COVID-19 (FANNIE) COVID-19 Clin Com Coronavirus NL63 (PCR) Human Metapneumovir PCR Influenza A (RT-PCR) Influenza Type A (PCR) Influenza B (RT-PCR) Influenza Type B (PCR) M. pneumoniae (PCR) Parainfluenza 1 (PCR) Parainfluenza 2 (PCR) Parainfluenza 3 (PCR) Parainfluenza 4 (PCR) RSV (PCR) RSV RNA Qual (PCR) Entero/Rhino (PCR) SARS-CoV-2 RNA (RT-PCR) SARS-CoV-2 IgG Ab 07/28/20 07/28/20 07/28/20 04:34 08:26 12:20 WBC RBC Hgb Hct MCV MCH MCHC RDW Plt Count MPV Immature Gran % (Auto) Neut % (Auto) Lymph % (Auto) [place] % (Auto) Eos % (Auto) Baso % (Auto) Lymph # (Auto) [place] # (Auto) Eos # (Auto) Baso # (Auto) Abs Immat Gran (auto) Absolute Neuts (auto) Absolute Nucleated RBC Nucleated RBC % (auto) Smear Tech's Comments PT INR APTT D-Dimer ABG pH ABG pCO2 ABG pO2 ABG HCO3 ABG O2 Saturation ABG Base Excess Oxygen Given Sodium 132 L Potassium 4.6 Chloride 93 L Carbon Dioxide 14 L Anion Gap 30 H BUN 41 H Creatinine 6.80 H* Estim Creat Clear Calc 6.6 Estimated GFR 6 POC Glucose 142 H 114 Random Glucose 169 H Lactic Acid Calcium 8.0 L Magnesium Ferritin 755 H Total Bilirubin Direct Bilirubin AST ALT Alkaline Phosphatase Lactate Dehydrogenase 288 H Troponin I High Sens C-Reactive Protein B-Natriuretic Peptide Total Protein Albumin Lipase Procalcitonin Urine Color Urine Appearance Urine pH Ur Specific [place] Urine Protein Urine Glucose (UA) Urine Ketones Urine Blood Urine Nitrite Ur Leukocyte Esterase Urine RBC Urine WBC Ur Squamous Epith Cells Urine Bacteria Respiratory Panel [place] Adenovirus (Rapid PCR) B.pert (TEM-PCR) B.parapertussis DNA PCR C. pneumoniae DNA (PCR) Coronavirus (PCR) Coronavirus OC43 (PCR) Coronavirus HKU1 (PCR) Coronavirus 229E (PCR) COVID-19 (FANNIE) COVID-19 Clin Com Coronavirus NL63 (PCR) Human Metapneumovir PCR Influenza A (RT-PCR) Influenza Type A (PCR) Influenza B (RT-PCR) Influenza Type B (PCR) M. pneumoniae (PCR) Parainfluenza 1 (PCR) Parainfluenza 2 (PCR) Parainfluenza 3 (PCR) Parainfluenza 4 (PCR) RSV (PCR) RSV RNA Qual (PCR) Entero/Rhino (PCR) SARS-CoV-2 RNA (RT-PCR) SARS-CoV-2 IgG Ab 07/28/20 07/28/20 07/28/20 14:31 16:13 20:53 WBC RBC Hgb Hct MCV MCH MCHC RDW Plt Count MPV Immature Gran % (Auto) Neut % (Auto) Lymph % (Auto) [place] % (Auto) Eos % (Auto) Baso % (Auto) Lymph # (Auto) [place] # (Auto) Eos # (Auto) Baso # (Auto) Abs Immat Gran (auto) Absolute Neuts (auto) Absolute Nucleated RBC Nucleated RBC % (auto) Smear Tech's Comments PT INR APTT D-Dimer ABG pH ABG pCO2 ABG pO2 ABG HCO3 ABG O2 Saturation ABG Base Excess Oxygen Given Sodium Potassium Chloride Carbon Dioxide Anion Gap BUN Creatinine Estim Creat Clear Calc Estimated GFR POC Glucose 182 H 140 H Random Glucose Lactic Acid Calcium Magnesium Ferritin Total Bilirubin Direct Bilirubin AST ALT Alkaline Phosphatase Lactate Dehydrogenase Troponin I High Sens C-Reactive Protein B-Natriuretic Peptide Total Protein Albumin Lipase Procalcitonin Urine Color Urine Appearance Urine pH Ur Specific [place] Urine Protein Urine Glucose (UA) Urine Ketones Urine Blood Urine Nitrite Ur Leukocyte Esterase Urine RBC Urine WBC Ur Squamous Epith Cells Urine Bacteria Respiratory Panel [place] See Note Adenovirus (Rapid PCR) Not Detected B.pert (TEM-PCR) Not Detected B.parapertussis DNA PCR Not Detected C. pneumoniae DNA (PCR) Not Detected Coronavirus (PCR) Coronavirus OC43 (PCR) Not Detected Coronavirus HKU1 (PCR) Not Detected Coronavirus 229E (PCR) Not Detected COVID-19 (FANNIE) COVID-19 Clin Com Coronavirus NL63 (PCR) Not Detected Human Metapneumovir PCR Not Detected Influenza A (RT-PCR) Not Detected Influenza Type A (PCR) Influenza B (RT-PCR) Not Detected Influenza Type B (PCR) M. pneumoniae (PCR) Not Detected Parainfluenza 1 (PCR) Not Detected Parainfluenza 2 (PCR) Not Detected Parainfluenza 3 (PCR) Not Detected Parainfluenza 4 (PCR) Not Detected RSV (PCR) Not Detected RSV RNA Qual (PCR) Entero/Rhino (PCR) Not Detected SARS-CoV-2 RNA (RT-PCR) Not Detected SARS-CoV-2 IgG Ab 07/29/20 07/29/20 07/29/20 05:28 05:28 05:28 WBC 8.7 RBC 3.81 L Hgb 11.8 L Hct 35.8 L MCV 94.0 MCH 31.0 MCHC 33.0 RDW 13.6 Plt Count 194 MPV 12.3 Immature Gran % (Auto) 0.3 Neut % (Auto) 79.3 H Lymph % (Auto) 10.0 L [place] % (Auto) 8.2 Eos % (Auto) 1.6 Baso % (Auto) 0.6 Lymph # (Auto) 0.9 L [place] # (Auto) 0.7 Eos # (Auto) 0.1 Baso # (Auto) 0.1 Abs Immat Gran (auto) 0.03 Absolute Neuts (auto) 6.9 Absolute Nucleated RBC 0.000 Nucleated RBC % (auto) 0.0 Smear Tech's Comments PT INR APTT D-Dimer ABG pH ABG pCO2 ABG pO2 ABG HCO3 ABG O2 Saturation ABG Base Excess Oxygen Given Sodium 131 L Potassium 4.6 Chloride 94 L Carbon Dioxide 20 L Anion Gap 22 H BUN 29 H Creatinine 5.18 H* Estim Creat Clear Calc 8.7 Estimated GFR 8 POC Glucose Random Glucose 141 H Lactic Acid Calcium 8.0 L Magnesium Ferritin Total Bilirubin Direct Bilirubin AST ALT Alkaline Phosphatase Lactate Dehydrogenase Troponin I High Sens C-Reactive Protein 0.32 B-Natriuretic Peptide Total Protein Albumin Lipase Procalcitonin Urine Color Urine Appearance Urine pH Ur Specific [place] Urine Protein Urine Glucose (UA) Urine Ketones Urine Blood Urine Nitrite Ur Leukocyte Esterase Urine RBC Urine WBC Ur Squamous Epith Cells Urine Bacteria Respiratory Panel [place] Adenovirus (Rapid PCR) B.pert (TEM-PCR) B.parapertussis DNA PCR C. pneumoniae DNA (PCR) Coronavirus (PCR) Coronavirus OC43 (PCR) Coronavirus HKU1 (PCR) Coronavirus 229E (PCR) COVID-19 (FANNIE) COVID-19 Clin Com Coronavirus NL63 (PCR) Human Metapneumovir PCR Influenza A (RT-PCR) Influenza Type A (PCR) Influenza B (RT-PCR) Influenza Type B (PCR) M. pneumoniae (PCR) Parainfluenza 1 (PCR) Parainfluenza 2 (PCR) Parainfluenza 3 (PCR) Parainfluenza 4 (PCR) RSV (PCR) RSV RNA Qual (PCR) Entero/Rhino (PCR) SARS-CoV-2 RNA (RT-PCR) SARS-CoV-2 IgG Ab Negative 07/29/20 07/29/20 07/29/20 05:28 07:25 12:53 WBC RBC Hgb Hct MCV MCH MCHC RDW Plt Count MPV Immature Gran % (Auto) Neut % (Auto) Lymph % (Auto) [place] % (Auto) Eos % (Auto) Baso % (Auto) Lymph # (Auto) [place] # (Auto) Eos # (Auto) Baso # (Auto) Abs Immat Gran (auto) Absolute Neuts (auto) Absolute Nucleated RBC Nucleated RBC % (auto) Smear Tech's Comments PT INR APTT D-Dimer ABG pH ABG pCO2 ABG pO2 ABG HCO3 ABG O2 Saturation ABG Base Excess Oxygen Given Sodium Potassium Chloride Carbon Dioxide Anion Gap BUN Creatinine Estim Creat Clear Calc Estimated GFR POC Glucose 155 H 122 H Random Glucose Lactic Acid Calcium Magnesium Ferritin Total Bilirubin Direct Bilirubin AST ALT Alkaline Phosphatase Lactate Dehydrogenase Troponin I High Sens C-Reactive Protein B-Natriuretic Peptide Total Protein Albumin Lipase Procalcitonin 0.17 Urine Color Urine Appearance Urine pH Ur Specific [place] Urine Protein Urine Glucose (UA) Urine Ketones Urine Blood Urine Nitrite Ur Leukocyte Esterase Urine RBC Urine WBC Ur Squamous Epith Cells Urine Bacteria Respiratory Panel [place] Adenovirus (Rapid PCR) B.pert (TEM-PCR) B.parapertussis DNA PCR C. pneumoniae DNA (PCR) Coronavirus (PCR) Coronavirus OC43 (PCR) Coronavirus HKU1 (PCR) Coronavirus 229E (PCR) COVID-19 (FANNIE) COVID-19 Clin Com Coronavirus NL63 (PCR) Human Metapneumovir PCR Influenza A (RT-PCR) Influenza Type A (PCR) Influenza B (RT-PCR) Influenza Type B (PCR) M. pneumoniae (PCR) Parainfluenza 1 (PCR) Parainfluenza 2 (PCR) Parainfluenza 3 (PCR) Parainfluenza 4 (PCR) RSV (PCR) RSV RNA Qual (PCR) Entero/Rhino (PCR) SARS-CoV-2 RNA (RT-PCR) SARS-CoV-2 IgG Ab 07/29/20 07/29/20 07/30/20 17:10 20:14 07:56 WBC RBC Hgb Hct MCV MCH MCHC RDW Plt Count MPV Immature Gran % (Auto) Neut % (Auto) Lymph % (Auto) [place] % (Auto) Eos % (Auto) Baso % (Auto) Lymph # (Auto) [place] # (Auto) Eos # (Auto) Baso # (Auto) Abs Immat Gran (auto) Absolute Neuts (auto) Absolute Nucleated RBC Nucleated RBC % (auto) Smear Tech's Comments PT INR APTT D-Dimer ABG pH ABG pCO2 ABG pO2 ABG HCO3 ABG O2 Saturation ABG Base Excess Oxygen Given Sodium Potassium Chloride Carbon Dioxide Anion Gap BUN Creatinine Estim Creat Clear Calc Estimated GFR POC Glucose 166 H 111 164 H Random Glucose Lactic Acid Calcium Magnesium Ferritin Total Bilirubin Direct Bilirubin AST ALT Alkaline Phosphatase Lactate Dehydrogenase Troponin I High Sens C-Reactive Protein B-Natriuretic Peptide Total Protein Albumin Lipase Procalcitonin Urine Color Urine Appearance Urine pH Ur Specific [place] Urine Protein Urine Glucose (UA) Urine Ketones Urine Blood Urine Nitrite Ur Leukocyte Esterase Urine RBC Urine WBC Ur Squamous Epith Cells Urine Bacteria Respiratory Panel [place] Adenovirus (Rapid PCR) B.pert (TEM-PCR) B.parapertussis DNA PCR C. pneumoniae DNA (PCR) Coronavirus (PCR) Coronavirus OC43 (PCR) Coronavirus HKU1 (PCR) Coronavirus 229E (PCR) COVID-19 (FANNIE) COVID-19 Clin Com Coronavirus NL63 (PCR) Human Metapneumovir PCR Influenza A (RT-PCR) Influenza Type A (PCR) Influenza B (RT-PCR) Influenza Type B (PCR) M. pneumoniae (PCR) Parainfluenza 1 (PCR) Parainfluenza 2 (PCR) Parainfluenza 3 (PCR) Parainfluenza 4 (PCR) RSV (PCR) RSV RNA Qual (PCR) Entero/Rhino (PCR) SARS-CoV-2 RNA (RT-PCR) SARS-CoV-2 IgG Ab 07/30/20 07/30/20 07/30/20 11:26 16:29 20:36 WBC RBC Hgb Hct MCV MCH MCHC RDW Plt Count MPV Immature Gran % (Auto) Neut % (Auto) Lymph % (Auto) [place] % (Auto) Eos % (Auto) Baso % (Auto) Lymph # (Auto) [place] # (Auto) Eos # (Auto) Baso # (Auto) Abs Immat Gran (auto) Absolute Neuts (auto) Absolute Nucleated RBC Nucleated RBC % (auto) Smear Tech's Comments PT INR APTT D-Dimer ABG pH ABG pCO2 ABG pO2 ABG HCO3 ABG O2 Saturation ABG Base Excess Oxygen Given Sodium Potassium Chloride Carbon Dioxide Anion Gap BUN Creatinine Estim Creat Clear Calc Estimated GFR POC Glucose 140 H 149 H 123 H Random Glucose Lactic Acid Calcium Magnesium Ferritin Total Bilirubin Direct Bilirubin AST ALT Alkaline Phosphatase Lactate Dehydrogenase Troponin I High Sens C-Reactive Protein B-Natriuretic Peptide Total Protein Albumin Lipase Procalcitonin Urine Color Urine Appearance Urine pH Ur Specific [place] Urine Protein Urine Glucose (UA) Urine Ketones Urine Blood Urine Nitrite Ur Leukocyte Esterase Urine RBC Urine WBC Ur Squamous Epith Cells Urine Bacteria Respiratory Panel [place] Adenovirus (Rapid PCR) B.pert (TEM-PCR) B.parapertussis DNA PCR C. pneumoniae DNA (PCR) Coronavirus (PCR) Coronavirus OC43 (PCR) Coronavirus HKU1 (PCR) Coronavirus 229E (PCR) COVID-19 (FANNIE) COVID-19 Clin Com Coronavirus NL63 (PCR) Human Metapneumovir PCR Influenza A (RT-PCR) Influenza Type A (PCR) Influenza B (RT-PCR) Influenza Type B (PCR) M. pneumoniae (PCR) Parainfluenza 1 (PCR) Parainfluenza 2 (PCR) Parainfluenza 3 (PCR) Parainfluenza 4 (PCR) RSV (PCR) RSV RNA Qual (PCR) Entero/Rhino (PCR) SARS-CoV-2 RNA (RT-PCR) SARS-CoV-2 IgG Ab 07/31/20 07/31/20 07/31/20 05:37 05:38 05:38 WBC 8.7 RBC 3.98 L Hgb 12.3 Hct 36.5 L MCV 91.7 MCH 30.9 MCHC 33.7 RDW 12.8 Plt Count 167 MPV 12.2 Immature Gran % (Auto) 0.5 H Neut % (Auto) 75.5 H Lymph % (Auto) 11.7 L [place] % (Auto) 9.7 Eos % (Auto) 2.0 Baso % (Auto) 0.6 Lymph # (Auto) 1.0 L [place] # (Auto) 0.8 Eos # (Auto) 0.2 Baso # (Auto) 0.1 Abs Immat Gran (auto) 0.04 H Absolute Neuts (auto) 6.5 Absolute Nucleated RBC 0.000 Nucleated RBC % (auto) 0.0 Smear Tech's Comments PT INR APTT D-Dimer ABG pH ABG pCO2 ABG pO2 ABG HCO3 ABG O2 Saturation ABG Base Excess Oxygen Given Sodium 127 L Potassium 5.0 Chloride 94 L Carbon Dioxide 18 L Anion Gap 20 BUN 41 H Creatinine 5.66 H* Estim Creat Clear Calc 8.0 Estimated GFR 7 POC Glucose Random Glucose 137 H Lactic Acid Calcium 8.2 L Magnesium Ferritin Total Bilirubin Direct Bilirubin AST ALT Alkaline Phosphatase Lactate Dehydrogenase Troponin I High Sens C-Reactive Protein B-Natriuretic Peptide Total Protein Albumin Lipase Procalcitonin 0.14 Urine Color Urine Appearance Urine pH Ur Specific [place] Urine Protein Urine Glucose (UA) Urine Ketones Urine Blood Urine Nitrite Ur Leukocyte Esterase Urine RBC Urine WBC Ur Squamous Epith Cells Urine Bacteria Respiratory Panel [place] Adenovirus (Rapid PCR) B.pert (TEM-PCR) B.parapertussis DNA PCR C. pneumoniae DNA (PCR) Coronavirus (PCR) Coronavirus OC43 (PCR) Coronavirus HKU1 (PCR) Coronavirus 229E (PCR) COVID-19 (FANNIE) COVID-19 Clin Com Coronavirus NL63 (PCR) Human Metapneumovir PCR Influenza A (RT-PCR) Influenza Type A (PCR) Influenza B (RT-PCR) Influenza Type B (PCR) M. pneumoniae (PCR) Parainfluenza 1 (PCR) Parainfluenza 2 (PCR) Parainfluenza 3 (PCR) Parainfluenza 4 (PCR) RSV (PCR) RSV RNA Qual (PCR) Entero/Rhino (PCR) SARS-CoV-2 RNA (RT-PCR) SARS-CoV-2 IgG Ab 07/31/20 07/31/20 07/31/20 11:16 16:41 21:23 WBC RBC Hgb Hct MCV MCH MCHC RDW Plt Count MPV Immature Gran % (Auto) Neut % (Auto) Lymph % (Auto) [place] % (Auto) Eos % (Auto) Baso % (Auto) Lymph # (Auto) [place] # (Auto) Eos # (Auto) Baso # (Auto) Abs Immat Gran (auto) Absolute Neuts (auto) Absolute Nucleated RBC Nucleated RBC % (auto) Smear Tech's Comments PT INR APTT D-Dimer ABG pH ABG pCO2 ABG pO2 ABG HCO3 ABG O2 Saturation ABG Base Excess Oxygen Given Sodium Potassium Chloride Carbon Dioxide Anion Gap BUN Creatinine Estim Creat Clear Calc Estimated GFR POC Glucose 261 H 70 195 H Random Glucose Lactic Acid Calcium Magnesium Ferritin Total Bilirubin Direct Bilirubin AST ALT Alkaline Phosphatase Lactate Dehydrogenase Troponin I High Sens C-Reactive Protein B-Natriuretic Peptide Total Protein Albumin Lipase Procalcitonin Urine Color Urine Appearance Urine pH Ur Specific [place] Urine Protein Urine Glucose (UA) Urine Ketones Urine Blood Urine Nitrite Ur Leukocyte Esterase Urine RBC Urine WBC Ur Squamous Epith Cells Urine Bacteria Respiratory Panel [place] Adenovirus (Rapid PCR) B.pert (TEM-PCR) B.parapertussis DNA PCR C. pneumoniae DNA (PCR) Coronavirus (PCR) Coronavirus OC43 (PCR) Coronavirus HKU1 (PCR) Coronavirus 229E (PCR) COVID-19 (FANNIE) COVID-19 Clin Com Coronavirus NL63 (PCR) Human Metapneumovir PCR Influenza A (RT-PCR) Influenza Type A (PCR) Influenza B (RT-PCR) Influenza Type B (PCR) M. pneumoniae (PCR) Parainfluenza 1 (PCR) Parainfluenza 2 (PCR) Parainfluenza 3 (PCR) Parainfluenza 4 (PCR) RSV (PCR) RSV RNA Qual (PCR) Entero/Rhino (PCR) SARS-CoV-2 RNA (RT-PCR) SARS-CoV-2 IgG Ab 08/01/20 08/01/20 05:30 07:56 WBC RBC Hgb Hct MCV MCH MCHC RDW Plt Count MPV Immature Gran % (Auto) Neut % (Auto) Lymph % (Auto) [place] % (Auto) Eos % (Auto) Baso % (Auto) Lymph # (Auto) [place] # (Auto) Eos # (Auto) Baso # (Auto) Abs Immat Gran (auto) Absolute Neuts (auto) Absolute Nucleated RBC Nucleated RBC % (auto) Smear Tech's Comments PT INR APTT D-Dimer ABG pH ABG pCO2 ABG pO2 ABG HCO3 ABG O2 Saturation ABG Base Excess Oxygen Given Sodium 132 L Potassium 4.4 Chloride 94 L Carbon Dioxide 24 Anion Gap 18 BUN 31 H Creatinine 4.58 H* Estim Creat Clear Calc 9.9 Estimated GFR 9 POC Glucose 185 H Random Glucose 134 H Lactic Acid Calcium 8.3 L Magnesium Ferritin Total Bilirubin Direct Bilirubin AST ALT Alkaline Phosphatase Lactate Dehydrogenase Troponin I High Sens C-Reactive Protein B-Natriuretic Peptide Total Protein Albumin Lipase Procalcitonin Urine Color Urine Appearance Urine pH Ur Specific [place] Urine Protein Urine Glucose (UA) Urine Ketones Urine Blood Urine Nitrite Ur Leukocyte Esterase Urine RBC Urine WBC Ur Squamous Epith Cells Urine Bacteria Respiratory Panel [place] Adenovirus (Rapid PCR) B.pert (TEM-PCR) B.parapertussis DNA PCR C. pneumoniae DNA (PCR) Coronavirus (PCR) Coronavirus OC43 (PCR) Coronavirus HKU1 (PCR) Coronavirus 229E (PCR) COVID-19 (FANNIE) COVID-19 Clin Com Coronavirus NL63 (PCR) Human Metapneumovir PCR Influenza A (RT-PCR) Influenza Type A (PCR) Influenza B (RT-PCR) Influenza Type B (PCR) M. pneumoniae (PCR) Parainfluenza 1 (PCR) Parainfluenza 2 (PCR) Parainfluenza 3 (PCR) Parainfluenza 4 (PCR) RSV (PCR) RSV RNA Qual (PCR) Entero/Rhino (PCR) SARS-CoV-2 RNA (RT-PCR) SARS-CoV-2 IgG Ab Preliminary micro results at discharge 07/27/20 14:55 Blood Culture - Preliminary Blood - Venous No growth after 48 hours. 07/27/20 14:55 Blood Culture - Preliminary Blood - Venous No growth after 48 hours. ITS Impressions Chest CT 07/27/20 10:16 IMPRESSION: Groundglass attenuation seen throughout both lungs with mild interstitial prominence and mild bronchiectasis both lungs of small airway disease. No consolidation seen. There is a small right pleural effusion. There are reactive mediastinal lymph nodes with largest short axis lymph node measuring 1.3 cm in precarinal space. Pulmonary Perfusion Imaging 07/27/20 10:16 IMPRESSION: Normal perfusion scan. Discharge Plan Discharge Patient Disposition: Home Health Service Referrals: Susan Buchanan MD [Primary Care Provider] - Discharge Medications: New lidocaine [Lidocaine Pain Relief] 4 % Adhesive Patch,Medicated 2 patch transdermal DAILY Qty: 15 RF: 0 doxycycline hyclate 100 mg Tablet 100 mg PO Q12H Qty: 5 RF: 0 lactulose 20 gram/30 mL Solution 20 g PO Q24H PRN (Reason: Constipation) 450 Days Qty: 240 RF: 0 Continued metoprolol succinate 100 mg tablet extended release 24 hr 1 tab PO DAILY RF: 0 hydralazine 25 mg tablet 1 tab PO DAILY RF: 0 acetaminophen-codeine 300-30 mg tablet 2 tab PO TID RF: 0 citalopram 20 mg tablet 1 tab PO DAILY RF: 0 lorazepam 0.5 mg tablet 2 tab PO BEDTIME PRN (Reason: anxiety) RF: 0 amlodipine 10 mg tablet 1 tab PO DAILY RF: 0 pravastatin 20 mg tablet 1 tab PO DAILY RF: 0 gabapentin 100 mg capsule 1 cap PO DAILY RF: 0 insulin lispro [Humalog KwikPen Insulin] 100 unit/mL insulin pen 0 unit subcut TIDAC RF: 0 bupropion HCl 300 mg tablet extended release 24 hr 1 tab PO QAM RF: 0 Metamucil Fiber Singles 3.4 gram powder in packet 1 packet PO DAILY RF: 0 Discharge Orders: Discharge Order (Routine); Ordered 08/01/20 Ordered By: Sharla Carias Diet: advance to usual diet, diabetic diet and other Activity on Discharge: As tolerated Patient Instructions: Doxycycline (By mouth), Pneumonia (DC), Chest Wall Pain (ED) Activity Restrictions/Additional Instructions: return to ED for any worsening symptoms or concerns Visit Report Forms: Patient Portal Discharge page Care Plan Goals: resolution of pneumonia control of chest wall and hip pain relief of constipation Health Concerns: pneumonia musculoskeletal pain constipation Plan of Treatment: take 5 more doses of doxycycline 100 mg twice daily continue your dialysis on use lidocaine patches for pain lactulose as needed for constipation follow up your primary care doctor in a week
--- NOTE | 2020-08-01 10:48 | MHC.CM.PN ---
[facility] notified of DC via [facility]. Family to transport
[2020-08-01 12:25] LABS: Glucose, Whole Blood 124 mg/dL (60-115)
--- NOTE | 2020-08-01 16:09 | HO.PM.IMPN ---
Subjective Subjective Date of Service: 08/01/20 Interval History: c/o L lower rib cage pain radiating to back off O2 was to be d/c'ed home with [facility] but pt c/o weakness/incoordination, unable to manage at home d/c held Physical Exam Vital Signs: Vital Signs: Last Vital Signs Temp 97.4 F 08/01/20 15:39 Pulse 65 08/01/20 15:39 Resp 19 08/01/20 15:39 BP 114/58 L 08/01/20 15:39 Pulse Ox 98 08/01/20 15:39 Body Mass Index 30.4 Gen: in no acute distress HEENT: sclera anicteric, moist mucus membranes Neck: supple Lungs: no respiratory distress, lungs clear B Heart: normal peripheral pulses Abd: soft, non-tender, non-distended Ext: no cyanosis, clubbing, or edema Skin: warm/well-perfused Neuro: alert and oriented x3, no focal findings Psych: appropriate affect Objective Data Current Medications Generic Name Dose Route Start Last Admin Trade Name Jarad PRN Reason Stop Dose Admin Acetaminophen 650 mg 07/27/20 17:13 08/01/20 00:22 Acetaminophen 325 Mg Tablet PO 650 mg Q6H PRN Administration Pain, Mild (Pain Scale 1-3) Acetaminophen/Codeine Phosphate 2 tab 07/27/20 21:00 08/01/20 15:58 Acetaminophen With Codeine # 3 Tablet PO Not Given TID MARBELLA Amlodipine Besylate 10 mg 07/28/20 09:00 08/01/20 09:46 Amlodipine Besylate 10 Mg Tablet PO 10 mg DAILY MARBELLA Administration Protocol Bupropion HCl 300 mg 07/28/20 09:00 08/01/20 09:46 Bupropion Hcl Xl 300 Mg Tab.Er.24h PO 300 mg DAILY MARBELLA Administration Doxycycline Hyclate 100 mg 07/28/20 18:00 08/01/20 05:41 Doxycycline Hyclate 100 Mg Tablet PO 100 mg Q12H MARBELLA Administration Escitalopram Oxalate 10 mg 07/28/20 09:00 08/01/20 09:46 Escitalopram Oxalate 10 Mg Tablet PO 10 mg DAILY MARBELLA Administration Gabapentin 100 mg 07/28/20 09:00 08/01/20 09:46 Gabapentin 100 Mg Capsule PO 100 mg DAILY MARBELLA Administration Guaifenesin/Dextromethorphan 10 ml 07/27/20 18:00 08/01/20 12:51 Guaifenesin Dm 200/20/10 Ml 10 Ml Syrup PO Not Given Q6H [facility] Heparin Sodium (Porcine) 5,000 unit 07/28/20 19:00 08/01/20 06:52 Heparin Sodium,Porcine 5,000 Unit/Ml Vial SUBCUT Not Given Q12H [facility] Hydralazine HCl 25 mg 07/29/20 17:30 08/01/20 09:46 Hydralazine Hcl 25 Mg Tablet PO 25 mg BIDPC [facility] Administration Protocol Hydromorphone HCl 0.5 mg 07/31/20 12:16 08/01/20 05:43 Hydromorphone Hcl 0.5 Mg/0.5 Ml Syringe IVPUSH 0.5 mg Q4H PRN Administration pain,severe Insulin Human Lispro 0 unit 07/28/20 17:15 08/01/20 12:40 Insulin Lispro 100 Unit/Ml 3 Ml Vial SUBCUT Not Given TIDAC [facility] Protocol Lactulose 20 gm 07/28/20 09:32 Lactulose 20 Gm/30 Ml Solution PO Q24H PRN constipation Lidocaine 2 patch 07/30/20 11:45 08/01/20 09:46 Lidocaine 4 % Patch Adh..Patch TRANSDERMA 2 patch DAILY [facility] Administration Protocol Lorazepam 1 mg 07/27/20 17:13 07/30/20 02:10 Lorazepam 0.5 Mg Tablet PO 1 mg BEDTIME PRN Administration anxiety Metoprolol Succinate 100 mg 07/28/20 09:00 08/01/20 09:45 Metoprolol Succinate Er 100 Mg Tab.Er.24h PO 100 mg DAILY [facility] Administration Protocol Ondansetron HCl 4 mg 07/27/20 17:13 08/01/20 06:50 Ondansetron Hcl 4 Mg/2 Ml Vial IVPUSH 4 mg Q8H PRN Administration Nausea and Vomiting Pharmacy Consult 1 each 07/27/20 14:32 Consult Rx Perform Med Rec MISCELLANE ONCE PRN Consult order Pravastatin Sodium 20 mg 07/28/20 09:00 08/01/20 09:46 Pravastatin Sodium 20 Mg Tablet PO 20 mg DAILY [facility] Administration Psyllium Hydrophilic Mucilloid 3.4 gm 07/28/20 09:00 08/01/20 09:51 Psyllium Seed 3.4 Gm Powd.Pack PO Not Given DAILY [facility] Sodium Chloride 3 ml 07/27/20 17:13 08/01/20 15:59 0.9 % Sodium Chloride Flush 3 Ml Syringe IVFLUSH 3 ml QSHIFT [facility] Administration Labs CBC & Chem 7: 07/31/20 05:38 08/01/20 05:30 Labs: Laboratory Results - last 24 hr 07/31/20 07/31/20 08/01/20 16:41 21:23 05:30 Sodium 132 L Potassium 4.4 Chloride 94 L Carbon Dioxide 24 Anion Gap 18 BUN 31 H Creatinine 4.58 H* Estim Creat Clear Calc 9.9 Estimated GFR 9 POC Glucose 70 195 H Random Glucose 134 H Calcium 8.3 L 08/01/20 08/01/20 07:56 12:21 Sodium Potassium Chloride Carbon Dioxide Anion Gap BUN Creatinine Estim Creat Clear Calc Estimated GFR POC Glucose 185 H 124 H Random Glucose Calcium Microbiology Microbiology Results: Microbiology 07/27/20 14:55 Blood - Venous Blood Culture - Preliminary No growth after 48 hours. 07/27/20 14:55 Blood - Venous Blood Culture - Preliminary No growth after 48 hours. Assessment and Plan (1) Ground glass opacity present on imaging of lung: Status: Acute (2) Pneumonia: Status: Acute (3) ESRD (end stage renal disease) on dialysis: Status: Acute (4) Hypoxia: Status: Acute Assessment and Plan: hospital d#6 70yo F with ESRD on HD, HTN, DM2 admitted with hypoxia, ground-glass pneumonia, COVID-negative # ground-glass/atypical pneumonia - 3 molecular tests for COVID-19 negative; IgG negative, indicating no prior infection - ID consulted, Legionella antigen pending, doxycycline d#/ # acute hypoxic respiratory failure - resolved # hypoNa - improved p HD # ESRD on HD - continue HD TuThSa # HTN - continue amlodipine, metoprolol, hydralazine # DM2 - continue correction-dose insulin # mood disorder - continue bupropion + escitalopram # hip pain # rib pain related to coughing - prn Dilaudid, lidocaine patch # VTE ppx - UFH # dispo - PT + CM consults, likely STR
--- NOTE | 2020-08-01 16:13 | MHC.CM.PN ---
CM was informed that the pt reported she did not feel safe to go home. CM met with pt to discuss DC plans. Pt was informed PT had recommended STR and she reported she was unsure if she wanted to go. She asked if CM would contact her to discuss this. CM called pts Ricky ([phone]) who initially said no because the pt had not been able to do the therapy at the time she went and they sent her home. After CM spoke to the pt again and told her what Ricky had said, she called him directly and together they decided STR was a good idea. She requested a referral to [facility] and agreed to [facility] [facility] since they have HD., pt is a managed medicare pt and will need PA which they will likely not be able to get until Sunday
[2020-08-01 16:26] LABS: Glucose, Whole Blood 190 mg/dL (60-115)
[2020-08-01 19:49] LABS: Glucose, Whole Blood 198 mg/dL (60-115)
[2020-08-02] VITALS: BP 147/67; PULSE 78; TEMP 36.8; O2SAT 98
[2020-08-02 04:00] VITALS: BP 142/71; PULSE 80; RESP 20; TEMP 36.6; O2SAT 98
[2020-08-02] MEDS: guaiFENesin DM 200/20/10 ML 10 ML SYRUP PO ×2 (06:03→11:56)
[2020-08-02 07:24] LABS: Glucose, Whole Blood 151 mg/dL (60-115)
[2020-08-02 08:00] VITALS: BP 150/64; PULSE 72; RESP 18; TEMP 37.1; O2SAT 91
[2020-08-02] MEDS: Insulin Lispro 100 UNIT/ML 3 ML VIAL SUBCUT (08:30)
[2020-08-02 08:31] VITALS: BP 150/64; PULSE 72
[2020-08-02] MEDS: Metoprolol Succinate ER 100 MG TAB.ER.24H PO (08:31)
[2020-08-02] MEDS: Lidocaine 4 % Patch ADH..PATCH 2 PATCH TRANSDERMA (08:31)
[2020-08-02] MEDS: 0.9 % Sodium Chloride Flush 3 ML SYRINGE IVFLUSH (08:31)
[2020-08-02 08:32] VITALS: BP 150/64; PULSE 72
[2020-08-02] MEDS: buPROPion HCl XL 300 MG TAB.ER.24H PO (08:32)
[2020-08-02] MEDS: Gabapentin 100 MG CAPSULE PO (08:32)
[2020-08-02] MEDS: Pravastatin Sodium 20 MG TABLET PO (08:32)
[2020-08-02] MEDS: Escitalopram Oxalate 10 MG TABLET PO (08:32)
[2020-08-02] MEDS: amLODIPine Besylate 10 MG TABLET PO (08:32)
[2020-08-02] MEDS: hydrALAZINE HCl 25 MG TABLET PO (08:32)
[2020-08-02 11:38] VITALS: BP 133/63; PULSE 60; RESP 18; TEMP 36.7; O2SAT 95
[2020-08-02 11:44] LABS: Glucose, Whole Blood 118 mg/dL (60-115)
--- NOTE | 2020-08-02 13:15 | P.EN_ITS ---
Event Note Date of Service: 08/02/20 Event Note: Daily note Seen and examined Remains stable. Transfer to [facility] when bed available.
--- NOTE | 2020-08-02 13:15 | PM.EVENT ---
Event Note Date of Service: 08/02/20 Event Note: Daily note Seen and examined Remains stable. Transfer to [facility] when bed available.
--- NOTE | 2020-08-02 13:36 | MHC.CM.PN ---
Patient will be discharged today at 2:30pm to [facility] via [facility] transport. Patient and nurse aware. IMM addressed.
[2020-08-02 14:25] LABS: COVID-19 Test Negative (Negative); IDNOW Serial# 9DD0AD1C
[2020-08-04 11:27] LABS: Legionella Ag Urine Not Detected (Not Detected)
== END 2020-08-02 15:48 | disposition skilled nursing facility (03) | DRG 193 ==
LOC: HO.ED 14:00 → HO.IMC 16:10
PROVIDERS: Family Medicine; Internal Medicine; Nurse Practitioner Acute Care; Admitting Provider Hospitalist; Emergency Provider Emergency Medicine; PCP Internal Medicine; Visit Provider Family Medicine
DX: J18.9 Pneumonia, unspecified organism (principal); J96.01 Acute respiratory failure with hypoxia; N18.6 End stage renal disease; I12.0 Hypertensive chronic kidney disease with stage 5 chronic kidney disease or end stage renal disease; F41.9 Anxiety disorder, unspecified; F39 Unspecified mood [affective] disorder; E11.9 Type 2 diabetes mellitus without complications; E78.00 Pure hypercholesterolemia, unspecified; Z20.828 Contact with and (suspected) exposure to other viral communicable diseases; E11.22 Type 2 diabetes mellitus with diabetic chronic kidney disease; Z99.2 Dependence on renal dialysis; Z88.2 Allergy status to sulfonamides; Z79.4 Long term (current) use of insulin; Z79.899 Other long term (current) drug therapy
CPT/HCPCS: 0241U; 36415; 71250; 78580; 80048; 80076; 81001; 82728; 82803; 82947; 83605; 83615; 83690; 83735; 83880; 84145; 84484; 85025; 85379; 85610; 85730; 86140; 86769; 87040; 87449; 87633; 87635; 90999; 93005; 96365; 96375; 97162; 97530; 99232; 99285; A9540; J0696; J1100; J1170; J2405

== ENCOUNTER 2020-08-03 07:14 | Outpatient (REF) | payer MEDICARE, SELFPAY ==
[2020-08-03 07:48] LABS: Hematocrit 32.8 % (37-47); Hemoglobin 11.3 g/dl (12.0-16.0); Mean Corpuscular HGB Conc 34.5 g/dl (31.0-35.0); Mean Corpuscular Hemoglobin 31.3 pg (27.0-33.0); Mean Corpuscular Volume 90.9 fL (80-98); Platelet Count 155 X10*3/uL (160-400); Red Blood Count 3.61 X10*6/uL (4.20-5.50); Red Cell Distribution Width 12.8 % (11.0-16.0); White Blood Count 8.9 X10*3/uL (4.8-10.8)
[2020-08-03 08:15] LABS: Alanine Aminotransferase 17 U/L (0-31); Albumin Level 3.7 g/dL (3.5-5.0); Alkaline Phosphatase 140 U/L (39-117); Anion Gap 21 (12-20); Aspartate Amino Transferase 16 U/L (5-31); Bilirubin Total 0.6 mg/dL (0.0-1.0); Blood Urea Nitrogen 62 mg/dL (9-16); Calcium 8.4 mg/dL (8.4-10.2); Carbon Dioxide 22 mmol/L (22-29); Chloride 91 mmol/L (96-108); Estimated Glomerular Filt Rate 6; Glucose Random 98 mg/dL (60-115); Potassium 4.3 mmol/l (3.3-5.1); Sodium 130 mmol/L (135-145); Total Protein 5.7 g/dL (6.5-8.0)
== END 2020-08-03 07:15 | disposition home or self-care (01) ==
LOC: HO.MMNH1L 07:14
PROVIDERS: Visit Provider Family Medicine
DX: N18.6 End stage renal disease (principal)
CPT/HCPCS: 36415; 80053; 85027

== ENCOUNTER 2020-08-09 | Outpatient (REF) | payer MEDICARE, SELFPAY ==
[2020-08-09 07:40] LABS: Hematocrit 33.5 % (37-47); Hemoglobin 11.3 g/dl (12.0-16.0); Mean Corpuscular HGB Conc 33.7 g/dl (31.0-35.0); Mean Corpuscular Hemoglobin 31.2 pg (27.0-33.0); Mean Corpuscular Volume 92.5 fL (80-98); Mean Platelet Volume 12.3 fL (9.4-12.3); Platelet Count 133 X10*3/uL (160-400); Red Blood Count 3.62 X10*6/uL (4.20-5.50); Red Cell Distribution Width 12.5 % (11.0-16.0); White Blood Count 6.4 X10*3/uL (4.8-10.8)
[2020-08-09 08:35] LABS: Anion Gap 19 (12-20); Blood Urea Nitrogen 38 mg/dL (9-16); Calcium 8.4 mg/dL (8.4-10.2); Carbon Dioxide 23 mmol/L (22-29); Chloride 95 mmol/L (96-108); Estimated Glomerular Filt Rate 7; Glucose Random 99 mg/dL (60-115); Potassium 3.8 mmol/l (3.3-5.1); Sodium 133 mmol/L (135-145)
== END 2020-08-09 00:01 | disposition home or self-care (01) ==
LOC: HO.MMNH1L
PROVIDERS: Visit Provider Family Medicine
DX: N18.6 End stage renal disease (principal)
CPT/HCPCS: 36415; 80048; 85027

== ENCOUNTER 2020-08-11 06:57 | Outpatient (REF) | payer MEDICARE, SELFPAY ==
[2020-08-11 08:37] LABS: Alanine Aminotransferase 14 U/L (0-31); Albumin Level 3.4 g/dL (3.5-5.0); Alkaline Phosphatase 99 U/L (39-117); Anion Gap 13 (12-20); Aspartate Amino Transferase 13 U/L (5-31); Bilirubin Total 0.3 mg/dL (0.0-1.0); Blood Urea Nitrogen 26 mg/dL (9-16); Calcium 8.5 mg/dL (8.4-10.2); Carbon Dioxide 28 mmol/L (22-29); Chloride 97 mmol/L (96-108); Estimated Glomerular Filt Rate 8; Glucose Random 103 mg/dL (60-115); Phosphorus 5.6 mg/dL (2.7-4.5); Potassium 3.6 mmol/l (3.3-5.1); Sodium 134 mmol/L (135-145); Total Protein 5.2 g/dL (6.5-8.0)
== END 2020-08-11 06:58 | disposition home or self-care (01) ==
LOC: HO.MMNH1L 06:57
PROVIDERS: Visit Provider Family Medicine
DX: R09.02 Hypoxemia (principal)
CPT/HCPCS: 36415; 80053; 84100

== ENCOUNTER 2020-08-16 | Outpatient (REF) | payer MEDICARE, SELFPAY ==
[2020-08-16 07:29] LABS: Hematocrit 31.7 % (37-47); Hemoglobin 10.7 g/dl (12.0-16.0); Mean Corpuscular HGB Conc 33.8 g/dl (31.0-35.0); Mean Corpuscular Hemoglobin 31.8 pg (27.0-33.0); Mean Corpuscular Volume 94.3 fL (80-98); Mean Platelet Volume 12.4 fL (9.4-12.3); Platelet Count 130 X10*3/uL (160-400); Red Blood Count 3.36 X10*6/uL (4.20-5.50); Red Cell Distribution Width 12.7 % (11.0-16.0); White Blood Count 5.7 X10*3/uL (4.8-10.8)
[2020-08-16 08:33] LABS: Anion Gap 16 (12-20); Blood Urea Nitrogen 31 mg/dL (9-16); Calcium 8.5 mg/dL (8.4-10.2); Carbon Dioxide 26 mmol/L (22-29); Chloride 98 mmol/L (96-108); Estimated Glomerular Filt Rate 7; Glucose Random 76 mg/dL (60-115); Potassium 3.8 mmol/l (3.3-5.1); Sodium 136 mmol/L (135-145)
== END 2020-08-16 00:01 | disposition home or self-care (01) ==
LOC: HO.MMNH1L
PROVIDERS: Visit Provider Family Medicine
DX: N18.6 End stage renal disease (principal)
CPT/HCPCS: 36415; 80048; 85027

== ENCOUNTER 2020-09-18 21:50 | Emergency (ER) | payer MEDICARE, SELFPAY ==
--- NOTE | ~2020-09-18 | XR_ITS ---
EXAMINATION: XR BILATERAL HIPS WITH AP PELVIS CLINICAL INFORMATION: Right hip pain COMPARISON: Abdominal radiographs 05/10/2020 TECHNIQUE: AP and frog-leg lateral views of each hip and an AP view of the pelvis. FINDINGS: Partially visualized fixation hardware in the right femur. Spinal fusion hardware noted. No acute fracture or dislocation. The femoral heads are well-seated within their acetabula. Mild degenerative changes of both hips with subchondral sclerosis noted. Abnormal appearance of the left superior and inferior pubic rami is chronic. This is consistent with prior fracture. No acute fractures are seen. The bowel gas pattern is unremarkable. XR/XR hip BI w PEL1V IMPRESSION: No acute fracture or malalignment. Chronic healed left superior and inferior pubic rami fractures.
--- NOTE | ~2020-09-18 | XR_ITS ---
EXAMINATION: XR LUMBOSACRAL SPINE CLINICAL INFORMATION: Lower back pain COMPARISON: 10/30/2009 TECHNIQUE: Three views of the lumbosacral spine. FINDINGS: There is left posterior fusion hardware at L4 and S1. There is an anterior screw seen at L5. There is mild anterior wedging noted at T12 and L1. This is of uncertain chronicity, new from 2009. No additional evidence of fracture. Alignment is maintained. The sacroiliac joints are symmetric. The sacrum appears grossly intact. XR/XR lumbar spine 2-3V IMPRESSION: Fusion from L4-S1. Mild anterior wedging of T12 and L1 vertebral bodies of uncertain chronicity, but new since 2009.
--- NOTE | ~2020-09-18 | XR_ITS ---
EXAMINATION: XR CHEST CLINICAL INFORMATION: Fluid overload COMPARISON: 07/27/2020 TECHNIQUE: Frontal view of the chest was obtained. FINDINGS: The lungs are well expanded. Increased interstitial markings are noted. No pleural effusion or pneumothorax. No dense consolidation. The cardiac silhouette is within normal limits. Prominence in the right paratracheal region corresponding to prominent lymph nodes seen on prior CT. No osseous abnormality. XR/XR chest 1V IMPRESSION: Increased interstitial markings may represent mild edema. Redemonstration of prominent mediastinal lymph nodes.
[2020-09-18 22:02] VITALS: BP 158/69; PULSE 72; RESP 16; TEMP 36.6; O2SAT 97; BMI 28.9
[2020-09-18] MEDS: HYDROmorphone HCl 0.5 MG/0.5 ML SYRINGE 0.25 MG IVPUSH (23:41)
[2020-09-18 23:53] LABS: Basophils Percent Auto 0.5 % (0-2); Eosinophils Absolute Auto 0.1 X10*3/uL (0.0-0.4); Eosinophils Percent Auto 0.6 % (0-4); Hematocrit 31.6 % (37-47); Hemoglobin 10.7 g/dl (12.0-16.0); Imm Gran Abs Auto 0.03 X10*3/uL (0.00-0.03); Imm Gran Pct Auto 0.3 % (0.0-0.4); Lymphocytes Absolute Auto 0.6 X10*3/uL (1.2-4.9); Lymphocytes Percent Auto 7.4 % (20-40); MANUAL DIFF FLAG SCAN; Mean Corpuscular HGB Conc 33.9 g/dl (31.0-35.0); Mean Corpuscular Hemoglobin 30.6 pg (27.0-33.0); Mean Corpuscular Volume 90.3 fL (80-98); Mean Platelet Volume 11.2 fL (9.4-12.3); Monocytes Absolute Auto 0.5 X10*3/uL (0.1-1.2); Monocytes Percent Auto 6.2 % (2-11); Neutrophils Absolute Auto 7.4 X10*3/uL (2.0-8.3); Platelet Count 177 X10*3/uL (160-400); Red Cell Distribution Width 13.5 % (11.0-16.0); SCAN SMEAR FLAG 1; White Blood Count 8.7 X10*3/uL (4.8-10.8)
[2020-09-19] VITALS (16 sets, daily range): BP systolic 102–182; BP diastolic 55–76; PULSE 74–81; RESP 16–20; TEMP 36.6–36.8; O2SAT 92–95
[2020-09-19 00:17] LABS: Alanine Aminotransferase 14 U/L (0-31); Albumin Level 3.7 g/dL (3.5-5.0); Alkaline Phosphatase 134 U/L (39-117); Anion Gap 20 (12-20); Aspartate Amino Transferase 15 U/L (5-31); Bilirubin Total 0.6 mg/dL (0.0-1.0); Blood Urea Nitrogen 17 mg/dL (9-16); Calcium 7.9 mg/dL (8.4-10.2); Carbon Dioxide 27 mmol/L (22-29); Chloride 94 mmol/L (96-108); Creatinine Clr Calc Pharmacy 11.7; Estimated Glomerular Filt Rate 12; Glucose Random 108 mg/dL (60-115); Potassium 3.7 mmol/L (3.3-5.1); Sodium 137 mmol/L (135-145); Total Protein 6.3 g/dL (6.5-8.0)
--- NOTE | 2020-09-19 00:18 | ED_ITS ---
HPI - General Adult General Chief complaint: Back Pain/Injury Stated complaint: LOW BACK AND RT PAIN,BILAT SWELLING IN FEET Time Seen by Provider: 09/18/20 21:55 Source: patient Mode of arrival: ambulatory Limitations: no limitations History of Present Illness HPI narrative: Patient presents to ED for for lower back/right hip pain. Patient states history of severe back arthritis and has had surgery and hardware placed in back and hips. Patient denies any recent trauma. Patient also states lower extremity swelling for the past 3 days especially feet. Patient states she went to dialysis today and did the whole 3 hours. Patient states her 2 prior dialysis appointments were cut short while receiving dialysis due to back pain. Patient denies any chest pain or shortness of breath Related Data Home Medications Medication Instructions Recorded Confirmed Metamucil Fiber Singles 1 packet PO DAILY 07/27/20 07/27/20 acetaminophen-codeine 2 tab PO TID 07/27/20 07/27/20 amlodipine 1 tab PO DAILY 07/27/20 07/27/20 bupropion HCl 1 tab PO QAM 07/27/20 07/27/20 citalopram 1 tab PO DAILY 07/27/20 07/27/20 gabapentin 1 cap PO DAILY 07/27/20 07/27/20 hydralazine 1 tab PO DAILY 07/27/20 07/27/20 insulin lispro [Humalog KwikPen 0 unit SUBCUT TIDAC 07/27/20 07/27/20 Insulin] lorazepam 2 tab PO BEDTIME PRN 07/27/20 07/27/20 metoprolol succinate 1 tab PO DAILY 07/27/20 07/27/20 pravastatin 1 tab PO DAILY 07/27/20 07/27/20 Previous Rx's Medication Instructions Recorded doxycycline hyclate 100 mg PO Q12H #5 tab 08/01/20 lactulose 20 g PO Q24H PRN 450 Days #240 ml 08/01/20 lidocaine [Lidocaine Pain Relief] 2 patch TRANSDERMAL DAILY #15 ea 08/01/20 Allergies Allergy/AdvReac Type Severity Reaction Status Date / Time ciprofloxacin [From CIPRO] Allergy Unknown RASH Verified 08/01/20 23:59 Sulfa (Sulfonamide Allergy Unknown RASH Verified 08/01/20 23:59 Antibiotics) [SULFA (SULFONAMIDE ANTIBIOTICS)] sulfamethoxazole Allergy Unknown RASH Verified 08/01/20 23:59 [From Bactrim] trimethoprim [From Bactrim] Allergy Unknown RASH Verified 08/01/20 23:59 Review of Systems Review of Systems: Yes all other systems are reviewed and are negative Constitutional: Constitutional: Reports as per HPI and Reports no additional constitutional complaints Eyes: Eyes: Reports as per HPI and Reports no additional eye complaints ENT: Reports system reviewed and no additional complaints, except as documented and Reports as per HPI Cardiovascular: Cardiovascular: Reports as per HPI and Reports no additional cardiovascular complaints Respiratory: Respiratory: Reports as per HPI and Reports no additional respiratory complaints Gastrointestinal: Gastrointestinal: Reports as per HPI and Reports no additional gastrointestinal complaints Genitourinary: Genitourinary: Reports no additional female genitourinary complaints and Reports as per HPI Musculoskeletal: Musculoskeletal: Reports no additional musculoskeletal complaints, Reports as per HPI and Reports back pain Comments: hip pain Neurologic: Reports system reviewed and no additional complaints, except as documented and Reports as per HPI Psychiatric: Psychiatric: Reports no additional psychiatric complaints and Reports as per HPI [facility] Past Medical History Medical History (Updated 09/18/20 @ 22:06 by Lalitha Victor) Acute pain Anxiety Arthropathy of right hip AV fistula Back pain Diabetes Diabetes ESRD (end stage renal disease) on dialysis Ground glass opacity present on imaging of lung High cholesterol Hypertension Kidney failure Surgical History H/O: hysterectomy Family History Family History Other Family history non-contributory Social History Social History Household Members: Spouse and Children Housing: House Alcohol intake: never Smoking Status: Never smoker Smoked in Last 30 Days: No Use of substances other than those prescribed or required for medical reasons: No Any prior treatment program specific to substance use: No Advance Directives: No Advance Directives Information Provided: Yes service: No Current occupational status: retired Physical Exam Vital Signs: Vital Signs: Last Vital Signs Temp 97.8 F 09/18/20 22:02 Pulse 80 09/19/20 01:41 Resp 16 09/19/20 01:41 BP 169/67 H 09/19/20 01:41 Pulse Ox 95 09/19/20 01:41 Body Mass Index 28.9 Const: General: cooperative and healthy appearing Orientation/consciousness: patient oriented x3 HENMT: Head: Yes normal to inspection and Yes No palpable skull fracture present Eyes: General: appearance normal, both eyes and all related structures Neck: Neck: Yes normal visual inspection, Yes full ROM, Yes no lymphadenopathy, Yes no meningeal signs, Yes trachea midline, Yes supple and No tender Chest: Chest palpation & inspection: normal inspection of the chest and normal palpation of entire chest wall Resp: Effort & Inspection: normal respiratory effort and able to speak in complete sentences Auscultation: clear to auscultation bilaterally Cardio: Jugular venous distension: no JVD Heart sounds: S1 normal heart sound present and S2 normal heart sound present GI: Inspection: Yes normal to inspection and No abdominal wall ecchymosis Back/Spine/Pelvis: Back: back tenderness (lumbar) Skin: General skin exam: no rashes or lesions noted and elasticity normal Neuro: General: patient oriented x3 and no meningeal signs Extrem: Other: Lower extremities positive for bilateral pitting edema. Negative for any redness or calf tenderness. Course Course Course Narrative: Patient will history physical exam does not indicate fluid overload. Lower extremity bilateral swelling and pitting edema negative for any calf tenderness. With those labs including BNP. Was sent for lumbar and hip x- ray. Dilaudid on Reevaluation(s) Reevaluation #1: Patient's BNP came back 1960. Patient does not have any history of CHF. Patient's elevated BNP and from history of kidney failure. Patient's prior notes were evaluated and were negative for mention of CHF. Negative for any fractures on x-rays. Patient states she still having back pain after IV Dilaudid. 20/50 of Dilaudid was ordered to help with the pain. Most likely patient will be a case management case. Chest x-ray sent to evaluate for possible fluid overload although very unlikely due to lungs are clear and patient denies any chest pain or shortness of breath. Patient potassium is normal. Awaiting EKG . Patient has swelling of lower extremity due to kidney failure. Troponin not indicated. patient denies any chest pain or shortness of breath. patient has no pmh of CHF. Time: 00:30 Reevaluation #2: Lumbar x-ray shows still wedging of T12 and L1 which is new from last x-ray on 2009. As per radiology this is of unknown chronicity median this may be chronic, but does no prior imaging to compare. Patient denies any recent trauma. Case management and PT placed. Time: 01:56 Reevaluation #3: Chest x-ray negative for signs of fluid overload or cardiomegaly. Patient denies any chest pain or shortness of breath. Lungs are clear. O2 saturation normal. Case signed out to Dr. [place]. EKG negative for STEMI Time: 02:33 Medical Decision Making MDM Narrative Medical decision making narrative: CKD. Back pain. T12 fracture. Lab Data Result diagrams: 09/18/20 23:45 09/18/20 23:45 Labs: Lab Results 09/18/20 09/18/20 09/18/20 Range/Units 23:45 23:45 23:45 WBC 8.7 (4.8-10.8) X10*3/uL RBC 3.50 L (4.20-5.50) X10*6/uL Hgb 10.7 L (12.0-16.0) g/dl Hct 31.6 L (37-47) % MCV 90.3 (80-98) fL MCH 30.6 (27.0-33.0) pg MCHC 33.9 (31.0-35.0) g/dl RDW 13.5 (11.0-16.0) % Plt Count 177 D (160-400) X10*3/uL MPV 11.2 (9.4-12.3) fL Immature Gran % (Auto) 0.3 (0.0-0.4) % Neut % (Auto) 85.0 H (45-73) % Lymph % (Auto) 7.4 L (20-40) % [place] % (Auto) 6.2 (2-11) % Eos % (Auto) 0.6 (0-4) % Baso % (Auto) 0.5 (0-2) % Lymph # (Auto) 0.6 L (1.2-4.9) X10*3/uL [place] # (Auto) 0.5 (0.1-1.2) X10*3/uL Eos # (Auto) 0.1 (0.0-0.4) X10*3/uL Baso # (Auto) 0.0 (0.0-0.2) X10*3/uL Abs Immat Gran (auto) 0.03 (0.00-0.03) X10*3/uL Absolute Neuts (auto) 7.4 (2.0-8.3) X10*3/uL Absolute Nucleated RBC 0.000 (0.0-0.012) X10*3/uL Nucleated RBC % (auto) 0.0 (0.0-0.2) /100WBC Smear Tech's Comments VERIFIED PT 11.7 (10.8-13.0) SEC INR 1.0 (0.9-1.1) APTT 33.2 (24.1-38.0) SEC Sodium 137 (135-145) mmol/L Potassium 3.7 (3.3-5.1) mmol/L Chloride 94 L (96-108) mmol/L Carbon Dioxide 27 (22-29) mmol/L Anion Gap 20 (12-20) BUN 17 H (9-16) mg/dL Creatinine 3.74 H (0.5-1.4) mg/dL Estim Creat Clear Calc 11.7 Estimated GFR 12 Random Glucose 108 D (60-115) mg/dL Calcium 7.9 L D (8.4-10.2) mg/dL Total Bilirubin 0.6 (0.0-1.0) mg/dL AST 15 (5-31) U/L ALT 14 (0-31) U/L Alkaline Phosphatase 134 H D (39-117) U/L B-Natriuretic Peptide (<100) pg/mL Total Protein 6.3 L D (6.5-8.0) g/dL Albumin 3.7 (3.5-5.0) g/dL 09/18/20 Range/Units 23:45 WBC (4.8-10.8) X10*3/uL RBC (4.20-5.50) X10*6/uL Hgb (12.0-16.0) g/dl Hct (37-47) % MCV (80-98) fL MCH (27.0-33.0) pg MCHC (31.0-35.0) g/dl RDW (11.0-16.0) % Plt Count (160-400) X10*3/uL MPV (9.4-12.3) fL Immature Gran % (Auto) (0.0-0.4) % Neut % (Auto) (45-73) % Lymph % (Auto) (20-40) % [place] % (Auto) (2-11) % Eos % (Auto) (0-4) % Baso % (Auto) (0-2) % Lymph # (Auto) (1.2-4.9) X10*3/uL [place] # (Auto) (0.1-1.2) X10*3/uL Eos # (Auto) (0.0-0.4) X10*3/uL Baso # (Auto) (0.0-0.2) X10*3/uL Abs Immat Gran (auto) (0.00-0.03) X10*3/uL Absolute Neuts (auto) (2.0-8.3) X10*3/uL Absolute Nucleated RBC (0.0-0.012) X10*3/uL Nucleated RBC % (auto) (0.0-0.2) /100WBC Smear Tech's Comments PT (10.8-13.0) SEC INR (0.9-1.1) APTT (24.1-38.0) SEC Sodium (135-145) mmol/L Potassium (3.3-5.1) mmol/L Chloride (96-108) mmol/L Carbon Dioxide (22-29) mmol/L Anion Gap (12-20) BUN (9-16) mg/dL Creatinine (0.5-1.4) mg/dL Estim Creat Clear Calc Estimated GFR Random Glucose (60-115) mg/dL Calcium (8.4-10.2) mg/dL Total Bilirubin (0.0-1.0) mg/dL AST (5-31) U/L ALT (0-31) U/L Alkaline Phosphatase (39-117) U/L B-Natriuretic Peptide 1959 H (<100) pg/mL Total Protein (6.5-8.0) g/dL Albumin (3.5-5.0) g/dL ECG Data Interpretation: Normal sinus rhythm. Ventricular rate 75. Pr interval 140. QRS 70. QTC 498. Negative STEMI Discharge Plan Discharge Prescriptions: No Action metoprolol succinate 100 mg tablet extended release 24 hr 1 tab PO DAILY RF: 0 hydralazine 25 mg tablet 1 tab PO DAILY RF: 0 acetaminophen-codeine 300-30 mg tablet 2 tab PO TID RF: 0 citalopram 20 mg tablet 1 tab PO DAILY RF: 0 lorazepam 0.5 mg tablet 2 tab PO BEDTIME PRN (Reason: anxiety) RF: 0 amlodipine 10 mg tablet 1 tab PO DAILY RF: 0 pravastatin 20 mg tablet 1 tab PO DAILY RF: 0 gabapentin 100 mg capsule 1 cap PO DAILY RF: 0 insulin lispro [Humalog KwikPen Insulin] 100 unit/mL insulin pen 0 unit subcut TIDAC RF: 0 bupropion HCl 300 mg tablet extended release 24 hr 1 tab PO QAM RF: 0 Metamucil Fiber Singles 3.4 gram powder in packet 1 packet PO DAILY RF: 0 lidocaine [Lidocaine Pain Relief] 4 % Adhesive Patch,Medicated 2 patch transdermal DAILY Qty: 15 RF: 0 doxycycline hyclate 100 mg Tablet 100 mg PO Q12H Qty: 5 RF: 0 lactulose 20 gram/30 mL Solution 20 g PO Q24H PRN (Reason: Constipation) 450 Days Qty: 240 RF: 0
[2020-09-19 00:20] LABS: B Type Natriuretic Peptide 1959 pg/mL (<100); Prothrombin Time 11.7 SEC (10.8-13.0)
[2020-09-19 00:22] LABS: Partial Thromboplastin Time 33.2 SEC (24.1-38.0)
--- NOTE | 2020-09-19 00:26 | ECG_ITS ---
Test Reason : CHEST PAIN Blood Pressure : / mmHG Vent. Rate : 075 BPM Atrial Rate : 075 BPM P-R Int : 140 ms QRS Dur : 070 ms QT Int : 446 ms P-R-T Axes : 067 011 041 degrees QTc Int : 498 ms Normal sinus rhythm Nonspecific ST and T wave abnormality Abnormal ECG When compared with ECG of 27-JUL-2020 11:47, Nonspecific T wave abnormality, worse in Anterolateral leads Referred By: Ruddy Mendenhall Electronically Signed By:JESÚS LEIGH
[2020-09-19 00:40] LABS: SLIDE REVIEW VERIFIED
--- NOTE | 2020-09-19 01:40 | PC.NURSE ---
pt requesting more pain medications. no effect from 1st dose.
[2020-09-19] MEDS: HYDROmorphone HCl 0.5 MG/0.5 ML SYRINGE IVPUSH (01:43)
--- NOTE | 2020-09-19 01:46 | PC.NURSE ---
PT MOVED TO ED 21 REPORT GIVEN TO ARACELIS HENRY.
--- NOTE | 2020-09-19 02:43 | PC.NURSE ---
ASSUMED CARE OF PT. PT C/O IM NOT COMFORTABLE . PT REPOSITIONED WITH BOOST AND PILLOWS. HL AND LABS OBTAINED. PT MEDICATED FOR BACK PAIN RATING 10/10. WILL CONTINUE TO MONITOR PT.
--- NOTE | 2020-09-19 03:27 | PC.NURSE ---
PT IS CONCERNED ABOUT HER GLUCOSE WHICH IS 108, PT AWARE. PT REPOSITIONED FOR COMFORT W/O SUCCESS. PT HAS PILLOWS UNDER LEGS AND ON SIDES OF ABD FOR COMFORT. PT IS MOVING ABOUT CONSTANTLY. PT CRYING IN STRETCHER. PT RATING PAIN 10/10. ICE PACKS APPLIED TO LOWER BACK FOR PAIN. WILL CONTINUE TO MONITOR PT.
[2020-09-19 03:59] LABS: COVID-19 Test Negative (Negative)
--- NOTE | 2020-09-19 04:31 | PC.NURSE ---
PT IS CONSTANTLY POLICE JUDGE GARCÍA I NEED HELP BUT II DON'T KNOW HOW YOU CAN HELP ME PT IS CONSTANTLY REASSURED. AWARE.
[2020-09-19] MEDS: oxyCODONE HCl Immed Release 5 MG TABLET PO (05:56)
--- NOTE | 2020-09-19 06:04 | PC.NURSE ---
PT IS CONSTANTLY TELEGRAPH SERVICE RATER GARCÍA AND PT STATES IM UNSURE HOW YOU CAN HELP ME . PT C/O FEELING UNCOMFORTABLE, PT REPOSITIONED AND CLEANED UP. PT REFUSING [place]. PT C/O FEELING PAIN IN BACK AND RATING PAIN 10/10. MD AWARE. PT MEDICATED FOR BACK PAIN AND ICE PACK APPLIED TO RIGHT SIDE OF BACK. PT C/O BEING TOO COLD AND WAS GIVEN A WARM BLANKET. PT UNABLE TO SLEEP, PT IS CONSTANTLY CRYING AND STATES I DON'T KNOW WHY IM CRYING . WILL CONTINUE TO MONITOR PT. PT AWAITING FOR CASE MGT IN AM. PT STATES I WANT TO SEE CASE MGT NOW . WILL CONTINUE TO MONITOR PT.
--- NOTE | 2020-09-19 07:50 | PC.NURSE ---
pt incontinent of urine, pt cleaned up and repositioned in bed PT ALERT AND ORIENTED, SKIN PWD, RESPIRATIONS EVEN AND UNLABORED. PT REPORTS HAVING CHRONIC BACK PAIN, AND LEFT SIDED SCIATIC PAIN AND RIGHT SIDED BACK PAIN. PT JUST GOT HOME TWO WEEKS AGO FROM [facility], ALREADY HAS HOME THERAPY SET WITH [facility] THAT IS STARTING ON SUN, PT LIVES WITH HER AND SON. PT DOES NOT WANT TO BACK INTO REHAB WOULD RATHER JUST GO BACK HOME. PT USES A WALKER AND WHEELCHAIR THAT SHE ALREADY HAS AT HOME. PT ALSO REPORTED THAT SHE FEELS A LITTLE OVERWHELMED WITH ALL HER HEALTH ISSUES AND WOULD LIKE TO TALK TO SOME, BUT DENIES SI/HI. PT DOES HAVE DIALYSIS AT THE [facility] ON SUNDAY/SUNDAY/SUNDAY- PT DID REPORT THAT SHE COULD NOT FINISH HER DIALYSIS ON SUNDAY DUE TO HER BACK PAIN BUT DID COMPLETE HER DIALYSIS ON SUNDAY. PT EDUCATED ON THE IMPORTANCE OF FINISHING HER DIALYSIS. DR PRICE AND CASE MANAGEMENT.
--- NOTE | 2020-09-19 08:20 | PC.NURSE ---
EDIL FROM CASE MANAGEMENT AT BEDSIDE TALKING TO PT
--- NOTE | 2020-09-19 08:34 | PC.NURSE ---
CARE TEAM AT BEDSIDE
--- NOTE | 2020-09-19 08:46 | MHC.CARE ---
CARE Team consults with case management Heather and ED attending, patient will remain in the ER for rehab admission. CARE Team will contacted [facility] after hours [facility] to leave a message to her OP provider Jigna. [phone] option 1 for after hours [facility] staff, a VM was left. Patient is clear from CARE Team and case management will follow with patient.
[2020-09-19 08:52] LABS: Glucose, Whole Blood 103 mg/dL (60-115)
--- NOTE | 2020-09-19 09:02 | MHC.CM.PN ---
[facility] REVIEWED, PT IN ED W/BILATERAL FEET SWELLING AND INCREASED BACK/SCIATIC PAIN, CM MET WITH PT WHO REPORTS SHE LIVES WITH AND SON, PT REPORTS HER ASSISTS HER WITH SHOWERING AND ALL CARE, PT USES WALKER AT HOME HOWEVER ACCORDING TO PT AND HAS BEEN DECLINING SINCE DISCHARGING FROM [facility] [place], PT INITIALLY WANTED TO GO HOME HOWEVER W/RESUMPTION OF SERVICES, CM DISCUSSED HOME HEALTH SERVICES HOWEVER PT DECLINING AND REPORTS DOES NOT WANT ADDITIONAL PEOPLE IN HOUSE, AFTER DISCUSSION WITH PT IS REQUESTING TO GO BACK TO [facility] FOR MORE REHAB. CM DID SPEAK W/PT'S WHO REPORTS HE IS OVERWHELMED TAKING CARE OF AT HOME AND FEELS SHE WOULD BENEFIT FOR ADDITIONAL STR, CM WILL PLACE REFERRAL TO [facility] FOR STR PER FAMILY REQUEST DUE TO DIALYSIS ON SITE. DIALYSIS: [facility] [place]- PT IN REMISSION FOR 8 YRS, NO CURRENT TX. MENTAL HEALTH: PT SEEN BY CARE TEAM AND PER CARE TEAM THEY WILL CALL PTS PREVIOUS PSYCHIATRIST AT [facility] COUNSELING SO THEY CAN SCHEDULE APPTS WITH PT.
--- NOTE | 2020-09-19 09:45 | PC.NURSE ---
physical therapy at bedside
--- NOTE | 2020-09-19 11:15 | PC.NURSE ---
pt gabapentin was incorrect dosage- pharmacy called to fix
[2020-09-19] MEDS: Metoprolol Succinate ER 100 MG TAB.ER.24H PO (12:05)
[2020-09-19] MEDS: LORazepam 1 MG TABLET PO (12:07)
[2020-09-19] MEDS: Pravastatin Sodium 20 MG TABLET PO (12:07)
[2020-09-19] MEDS: amLODIPine Besylate 10 MG TABLET PO (12:07)
[2020-09-19] MEDS: hydrALAZINE HCl 25 MG TABLET PO (12:08)
[2020-09-19] MEDS: Aspirin 81 MG TAB.CHEW PO (12:08)
--- NOTE | 2020-09-19 12:12 | PC.NURSE ---
patient a&ox3, pt states she is having an anxiety attack- provider was notified and ativan has been ordered and administered, pt medicated with her daily meds as well, warm blanket provided per patient ordered, pt stating she is scared of having to go back to a long-term facility- emotional support given. will continue to monitor.
--- NOTE | 2020-09-19 12:18 | PC.NURSE ---
lt av fistula + bruit/thrill
[2020-09-19 14:13] LABS: Glucose, Whole Blood 110 mg/dL (60-115)
--- NOTE | 2020-09-19 14:15 | PC.NURSE ---
poc 110, held insulin
--- NOTE | 2020-09-19 14:41 | PC.NURSE ---
pt sleeping, woke to verbal stimulus, vss, will continue to monitor
--- NOTE | 2020-09-19 17:30 | PC.NURSE ---
patients insulin held due to low bs
[2020-09-19 18:06] LABS: Glucose, Whole Blood 100 mg/dL (60-115)
--- NOTE | 2020-09-19 20:18 | PC.NURSE ---
patient currently sleeping, rr 17, will wake for medications when due, will continue to monitor.
[2020-09-19] MEDS: LORazepam 0.5 MG TABLET 1 MG PO (23:17)
--- NOTE | 2020-09-19 23:18 | PC.NURSE ---
MEDICATED CHARTED WITH ATIVAN. GIVEN ICE PACK PER PT REQUEST.
[2020-09-20] VITALS (14 sets, daily range): BP systolic 103–182; BP diastolic 49–77; PULSE 70–83; RESP 15–18; TEMP 36.6–37.1; O2SAT 94–97
[2020-09-20] MEDS: Lidocaine 4 % Patch ADH..PATCH 1 PATCH TRANSDERMA (04:02)
[2020-09-20] MEDS: Metoprolol Succinate ER 100 MG TAB.ER.24H PO (08:24)
[2020-09-20] MEDS: hydrALAZINE HCl 25 MG TABLET PO (08:27)
[2020-09-20] MEDS: Pravastatin Sodium 20 MG TABLET PO (08:27)
[2020-09-20] MEDS: buPROPion HCl XL 150 MG TAB.ER.24H PO (08:27)
[2020-09-20] MEDS: Aspirin 81 MG TAB.CHEW PO (08:28)
[2020-09-20] MEDS: Escitalopram Oxalate 10 MG TABLET PO (08:28)
[2020-09-20] MEDS: amLODIPine Besylate 10 MG TABLET PO (08:29)
[2020-09-20 09:14] LABS: Glucose, Whole Blood 110 mg/dL (60-115)
[2020-09-20] MEDS: Gabapentin 100 MG CAPSULE PO (09:15)
[2020-09-20 12:23] LABS: Glucose, Whole Blood 143 mg/dL (60-115)
[2020-09-20] MEDS: LORazepam 1 MG TABLET PO (12:23)
--- NOTE | 2020-09-20 15:40 | MHC.CM.ED ---
i spoke c pt and pt's , cosmo , regarding tranferring to STR. they would like patient to go to [facility] their [facility] choice as their is HD on site. there may be a bed available for patient tomorrow. [facility] offered a bed but pt's benefit would not pay for transport to and from HD so patient refused this option as the cost of self paying for transport would be too high a financial burden. pt does not want to go to [facility] as she would have to change her HD days and doesn't want it. the pt will consider [facility] tomorrow if [facility] falls through. but at this time [facility] is first choice. of note: patient had a bad experience at [facility] and doesn't want to return there. cm to cont. to follow.
[2020-09-20 17:55] LABS: Glucose, Whole Blood 111 mg/dL (60-115)
[2020-09-20] MEDS: LORazepam 0.5 MG TABLET 1 MG PO (22:55)
[2020-09-21 00:30] VITALS: PULSE 76; RESP 18
[2020-09-21 01:29] VITALS: BP 164/83; PULSE 75; RESP 20; O2SAT 95
[2020-09-21 08:02] LABS: Glucose, Whole Blood 147 mg/dL (60-115)
[2020-09-21] MEDS: Pravastatin Sodium 20 MG TABLET PO (08:31)
[2020-09-21] MEDS: Gabapentin 100 MG CAPSULE PO (08:31)
[2020-09-21] MEDS: buPROPion HCl XL 150 MG TAB.ER.24H PO (08:31)
[2020-09-21] MEDS: Escitalopram Oxalate 10 MG TABLET PO (08:31)
[2020-09-21] MEDS: Aspirin 81 MG TAB.CHEW PO (08:31)
[2020-09-21 08:32] VITALS: BP 179/80; PULSE 83
[2020-09-21] MEDS: Metoprolol Succinate ER 100 MG TAB.ER.24H PO (08:32)
[2020-09-21] MEDS: hydrALAZINE HCl 25 MG TABLET PO (08:32)
[2020-09-21] MEDS: amLODIPine Besylate 10 MG TABLET PO (08:32)
[2020-09-21 08:42] VITALS: BP 180/72; RESP 18
--- NOTE | 2020-09-21 09:59 | MHC.CM.ED ---
Patient remains in ER. Per Noel at [facility], they have obtained insurance auth. They are in the process in the arranging a bed for patient. They will need a new Hep B surface antigen drawn. Toshia WAY aware. Continue to [facility] for d/c needs.
[2020-09-21] MEDS: oxyCODONE HCl Immed Release 5 MG TABLET PO (10:04)
--- NOTE | 2020-09-21 10:46 | MHC.CM.ED ---
Per Claudia at [facility], patient can leave at 12p. Attempted to arrange [facility]. But they are unable to accomodate patient. [facility] booked. Med nec with chart. Patient, , Toshia CAREER REPRESENTATIVE and [facility] aware. Continue to [facility] for d/c needs.
[2020-09-21] MEDS: LORazepam 1 MG TABLET PO (11:08)
[2020-09-22 08:12] LABS: HBsAGNum1 0.17 S/CO (0.00-0.99); Hepatitis B Surface Antigen Negative (Negative)
== END 2020-09-21 12:00 | disposition skilled nursing facility (03) ==
PROVIDERS: Emergency Medicine; Physician Assistant; Emergency Provider Emergency Medicine
DX: E11.22 Type 2 diabetes mellitus with diabetic chronic kidney disease (principal); I12.0 Hypertensive chronic kidney disease with stage 5 chronic kidney disease or end stage renal disease; N18.6 End stage renal disease; Z99.2 Dependence on renal dialysis; S22.080A Wedge compression fracture of T11-T12 vertebra, initial encounter for closed fracture; X58.XXXA Exposure to other specified factors, initial encounter; F41.9 Anxiety disorder, unspecified; M25.551 Pain in right hip; M54.5 Low back pain; Y93.9 Activity, unspecified; Y92.9 Unspecified place or not applicable; Y99.9 Unspecified external cause status; Z79.4 Long term (current) use of insulin
CPT/HCPCS: 36415; 71045; 72100; 73521; 80053; 82947; 83880; 85025; 85610; 85730; 87340; 87635; 93005; 96372; 96374; 96375; 96376; 97162; 99285; J1170

== ENCOUNTER 2020-09-22 06:56 | Outpatient (REF) | payer MEDICARE, SELFPAY ==
[2020-09-22 07:09] LABS: Basophils Percent Auto 0.3 % (0-2); Eosinophils Percent Auto 0.2 % (0-4); Hematocrit 30.7 % (37-47); Hemoglobin 10.4 g/dl (12.0-16.0); Imm Gran Abs Auto 0.04 X10*3/uL (0.00-0.03); Imm Gran Pct Auto 0.4 % (0.0-0.4); Lymphocytes Absolute Auto 0.4 X10*3/uL (1.2-4.9); Lymphocytes Percent Auto 3.6 % (20-40); MANUAL DIFF FLAG SCAN; Mean Corpuscular HGB Conc 33.9 g/dl (31.0-35.0); Mean Corpuscular Hemoglobin 31.3 pg (27.0-33.0); Mean Corpuscular Volume 92.5 fL (80-98); Mean Platelet Volume 12.3 fL (9.4-12.3); Monocytes Absolute Auto 0.4 X10*3/uL (0.1-1.2); Monocytes Percent Auto 4.3 % (2-11); Neutrophils Absolute Auto 9.1 X10*3/uL (2.0-8.3); Neutrophils Percent Auto 91.2 % (45-73); Platelet Count 125 X10*3/uL (160-400); Red Blood Count 3.32 X10*6/uL (4.20-5.50); Red Cell Distribution Width 14.1 % (11.0-16.0); SCAN SMEAR FLAG 1
[2020-09-22 07:35] LABS: SLIDE REVIEW VERIFIED
[2020-09-22 07:48] LABS: Alanine Aminotransferase 10 U/L (0-31); Albumin Level 3.5 g/dL (3.5-5.0); Alkaline Phosphatase 133 U/L (39-117); Anion Gap 21 (12-20); Aspartate Amino Transferase 10 U/L (5-31); Bilirubin Total 0.8 mg/dL (0.0-1.0); Blood Urea Nitrogen 42 mg/dL (9-16); Calcium 7.9 mg/dL (8.4-10.2); Carbon Dioxide 21 mmol/L (22-29); Chloride 91 mmol/L (96-108); Estimated Glomerular Filt Rate 6; Glucose Random 101 mg/dL (60-115); Potassium 4.5 mmol/L (3.3-5.1); Sodium 128 mmol/L (135-145); Total Protein 5.9 g/dL (6.5-8.0)
== END 2020-09-22 06:57 | disposition home or self-care (01) ==
LOC: HO.MMNH2L 06:56
PROVIDERS: Visit Provider Family Medicine
DX: I10 Essential (primary) hypertension (principal)
CPT/HCPCS: 36415; 80053; 85025

== ENCOUNTER 2020-09-27 07:14 | Outpatient (REF) | payer MEDICARE, SELFPAY ==
[2020-09-27 07:26] LABS: MANUAL DIFF FLAG NO
[2020-09-27 07:34] LABS: Basophils Percent Auto 0.6 % (0-2); Eosinophils Absolute Auto 0.2 X10*3/uL (0.0-0.4); Eosinophils Percent Auto 2.2 % (0-4); Hematocrit 26.1 % (37-47); Hemoglobin 8.7 g/dl (12.0-16.0); Imm Gran Abs Auto 0.03 X10*3/uL (0.00-0.03); Imm Gran Pct Auto 0.4 % (0.0-0.4); Lymphocytes Absolute Auto 1.4 X10*3/uL (1.2-4.9); Lymphocytes Percent Auto 19.6 % (20-40); Mean Corpuscular HGB Conc 33.3 g/dl (31.0-35.0); Mean Corpuscular Hemoglobin 30.6 pg (27.0-33.0); Mean Corpuscular Volume 91.9 fL (80-98); Monocytes Absolute Auto 0.9 X10*3/uL (0.1-1.2); Monocytes Percent Auto 12.6 % (2-11); Neutrophils Absolute Auto 4.7 X10*3/uL (2.0-8.3); Neutrophils Percent Auto 64.6 % (45-73); Platelet Count 170 X10*3/uL (160-400); Red Blood Count 2.84 X10*6/uL (4.20-5.50); White Blood Count 7.2 X10*3/uL (4.8-10.8)
[2020-09-27 08:04] LABS: Anion Gap 18 (12-20); Blood Urea Nitrogen 25 mg/dL (9-16); Calcium 7.2 mg/dL (8.4-10.2); Carbon Dioxide 25 mmol/L (22-29); Chloride 92 mmol/L (96-108); Glucose Random 70 mg/dL (60-115); Sodium 131 mmol/L (135-145)
[2020-09-27 08:39] LABS: Estimated Glomerular Filt Rate 10
== END 2020-09-27 07:15 | disposition home or self-care (01) ==
LOC: HO.MMNH2L 07:14
PROVIDERS: Visit Provider Family Medicine
DX: Z13.89 Encounter for screening for other disorder (principal)
CPT/HCPCS: 36415; 80048; 85025

== ENCOUNTER 2020-10-04 00:55 | Outpatient (REF) | payer MEDICARE, SELFPAY ==
[2020-10-04 06:32] LABS: MANUAL DIFF FLAG NO
[2020-10-04 06:59] LABS: Basophils Absolute Auto 0.1 X10*3/uL (0.0-0.2); Basophils Percent Auto 0.3 % (0-2); Eosinophils Absolute Auto 0.1 X10*3/uL (0.0-0.4); Eosinophils Percent Auto 0.7 % (0-4); Hematocrit 27.1 % (37-47); Hemoglobin 9.2 g/dl (12.0-16.0); Imm Gran Abs Auto 0.08 X10*3/uL (0.00-0.03); Imm Gran Pct Auto 0.5 % (0.0-0.4); Lymphocytes Percent Auto 6.5 % (20-40); Mean Corpuscular HGB Conc 33.9 g/dl (31.0-35.0); Mean Corpuscular Hemoglobin 30.5 pg (27.0-33.0); Mean Corpuscular Volume 89.7 fL (80-98); Mean Platelet Volume 11.5 fL (9.4-12.3); Monocytes Percent Auto 6.7 % (2-11); Neutrophils Absolute Auto 12.6 X10*3/uL (2.0-8.3); Neutrophils Percent Auto 85.3 % (45-73); Platelet Count 239 X10*3/uL (160-400); Red Blood Count 3.02 X10*6/uL (4.20-5.50); White Blood Count 14.8 X10*3/uL (4.8-10.8)
[2020-10-04 08:16] LABS: Anion Gap 20 (12-20); Blood Urea Nitrogen 39 mg/dL (9-16); Calcium 6.9 mg/dL (8.4-10.2); Carbon Dioxide 25 mmol/L (22-29); Chloride 87 mmol/L (96-108); Estimated Glomerular Filt Rate 7; Glucose Random 99 mg/dL (60-115); Potassium 4.7 mmol/L (3.3-5.1); Sodium 127 mmol/L (135-145)
== END 2020-10-04 00:56 | disposition home or self-care (01) ==
LOC: HO.MMNH2L 00:55
PROVIDERS: Visit Provider Family Medicine
DX: I10 Essential (primary) hypertension (principal)
CPT/HCPCS: 36415; 80048; 85025

== ENCOUNTER 2020-10-10 06:43 | Emergency (ER) | payer MEDICARE, SELFPAY ==
[2020-10-10] VITALS (8 sets, daily range): BP systolic 94–129; BP diastolic 47–59; PULSE 56–70; RESP 12–16; TEMP 36.4–36.6; O2SAT 92–98; BMI 29.2
--- NOTE | ~2020-10-10 | XR_ITS ---
EXAMINATION: XR CHEST CLINICAL INFORMATION: Left-sided pain with history of pneumonia COMPARISON: Chest radiograph from 09/19/2020, CT chest from 07/27/2020 TECHNIQUE: Frontal view of the chest was obtained. FINDINGS: Mild interstitial prominence. Bibasilar atelectasis. Stable prominence of the right perihilar region. Cardiomediastinal silhouette is stable. Aorta demonstrates mild tortuosity with atherosclerotic calcifications. There is no pleural effusions. Moderate dextrocurvature of the mid/lower thoracic spine. Soft tissues are unremarkable. XR/XR chest 1V IMPRESSION: 1. Mild interstitial prominence. 2. Bibasilar atelectasis. 3. Stable prominence of the right perihilar region.
--- NOTE | ~2020-10-10 | CT_ITS ---
EXAMINATION: CT ABDOMEN AND PELVIS WITHOUT CONTRAST CLINICAL INFORMATION: Left-sided abdominal pain. Unable to urinate. COMPARISON: No priors. TECHNIQUE: Multidetector volumetric imaging was performed from the superior aspect of the liver through the pubic symphysis. Sagittal and coronal reformatted images were obtained on the technologist's workstation. This CT examination was performed using dose optimization techniques as appropriate, variously including the following: *Automated exposure control *Adjustment of mA and/or kV according to patient size (this includes techniques or standardized protocols for targeted exams where dose is matched to indication/reason for exam; i.e. extremities or head) *Use of iterative reconstruction technique DLP: 613.95 mGy-cm FINDINGS: LUNG BASES: Bibasilar subsegmental dependent atelectasis.. Heart is normal in size. No pericardial effusion or thickening. LIVER, GALLBLADDER, AND BILIARY TREE: Liver is normal in size, contour, and attenuation. Scattered hepatic granuloma noted. Tiny subcentimeter low-density lesion in segment 7 (3:13) too small to characterize and likely a small cyst. Gallbladder is mildly distended. Choleliths are noted in the neck of the gallbladder. No gallbladder wall thickening or pericholecystic fluid. No intrahepatic or extra hepatic biliary ductal dilation. PANCREAS: Fatty infiltration of pancreas noted. SPLEEN: Tiny granulomata. ADRENAL GLANDS: Normal. KIDNEYS AND URETERS: Kidneys are atrophic. No calculi. No hydronephrosis. Ureters are normal throughout their course. BLADDER: Near completely decompressed. GASTROINTESTINAL TRACT: Stomach is normal. Small bowel is normal in caliber and wall thickness. Moderate retained stool burden throughout the entire colon colon is mildly distended without evidence of dilatation. PERITONEUM/RETROPERITONEUM AND MESENTERY: No free air or fluid. ABDOMINAL WALL: No significant hernia is appreciated. Body wall edema secondary to third spacing. LYMPH NODES: Normal. VASCULAR: Mild aortoiliac atherosclerotic calcifications. PELVIC VISCERA: Uterus is absent. No adnexal mass. Nonspecific soft tissue with dystrophic calcification is noted in the pelvis abutting the mesial rectal fascia measuring up to 6.3 x 3.6 x 6.1 cm (3:68), (5:63) OSSEOUS STRUCTURES: Anterior fixation at L5-S1. Posterior fusion hardware extends from L4-S1. There is marked osteopenia. Severe degenerative changes of the thoracolumbar spine noted. Right femoral nail in the proximal blade in the femoral neck. Hardware components are intact without abnormality. CT/CT abdomen pelvis wo con IMPRESSION: 1. Atrophic kidneys without evidence of hydronephrosis. Decompressed urinary bladder. No renal, ureteral, or urinary bladder calculi. 2. Moderate colonic stool burden with mild distention of the colon measuring up to 6.7 cm. No dilated loops of colon. 3. Nonspecific soft tissue in the right pelvic sidewall abutting the mesorectal fascia with associated dystrophic calcifications. 4. Cholelithiasis.
--- NOTE | ~2020-10-10 | XR_ITS ---
EXAMINATION: XR HIP, RIGHT CLINICAL INFORMATION: Recent fall with right hip pain COMPARISON: Bilateral hip radiograph from 09/11/2020 TECHNIQUE: Two views of the right hip and single view of the pelvis pelvis. FINDINGS: Status post orthopedic fixation of the right hip with a trochanteric femoral nail with intact orthopedic hardware. There is no acute visible fracture or dislocation. Chronic fracture deformity of the left superior and inferior pubic rami. Degenerative changes of the bilateral femoral acetabular joints with joint space narrowing, periarticular osteophyte formation, and subchondral cystic changes. Lower lumbar spine hardware is noted, stable. Visualized bowel gas demonstrates moderate fecal loading of the colon. Pelvic phleboliths are visualized. Atherosclerotic calcifications are noted. Soft tissues are unremarkable. XR/XR hip RT w PEL1V IMPRESSION: 1. No acute visible fracture or dislocation. 2. Status post orthopedic fixation of the right hip with a trochanteric femoral nail with intact orthopedic hardware. 3. Chronic fracture deformity of the left superior and inferior pubic rami. 4. Stable lower lumbar spinal hardware. 5. Moderate fecal loading of the visualized portions of the colon.
--- NOTE | 2020-10-10 07:14 | ED.ABDPAIN ---
HPI - Abdominal Pain General Chief Complaint: Abdominal Pain Stated Complaint: urinary problem Time Seen by Provider: 10/10/20 07:04 Source: patient and EMS Mode of arrival: EMS Limitations: no limitations History of Present Illness HPI narrative: 70-year-old female came in by ambulance from home for multiple complaints. Patient unable to urinate for the past 24 hours, patient is known to be end-stage renal disease patient is on dialysis last dialysis was yesterday, patient confirms that normally she makes urine she has not urinated since yesterday patient declined any feeling of distended abdomen or urge to go. Patient also complaining of left-sided abdominal pain similar to when she had pneumonia. Declined cough or fever. Patient stated she was at the rehab place for the past months for post pneumonia treatment, patient was just discharged yesterday to home, patient fell 2 days ago when she started to have a right hip pain. Reviewing patient's chart patient had multiple ED visits for back pain and right hip pain in the past. Related Data Home Medications Medication Instructions Recorded Confirmed Metamucil Fiber Singles 1 packet PO DAILY 07/27/20 09/19/20 acetaminophen-codeine 2 tab PO TID 07/27/20 09/19/20 amlodipine 1 tab PO DAILY 07/27/20 09/19/20 citalopram 1 tab PO DAILY 07/27/20 09/19/20 gabapentin 300 mg PO DAILY 07/27/20 09/19/20 hydralazine 1 tab PO DAILY 07/27/20 09/19/20 insulin lispro [Humalog KwikPen 20 unit SUBCUT TIDAC 07/27/20 09/19/20 Insulin] lorazepam 2 tab PO BEDTIME PRN 07/27/20 09/19/20 metoprolol succinate 100 mg PO DAILY 07/27/20 09/19/20 pravastatin 20 mg PO DAILY 07/27/20 09/19/20 aspirin 81 mg PO DAILY 09/19/20 09/19/20 bupropion HCl 150 mg PO QAM 09/19/20 09/19/20 Allergies Allergy/AdvReac Type Severity Reaction Status Date / Time ciprofloxacin [From CIPRO] Allergy Unknown RASH Verified 08/01/20 23:59 Sulfa (Sulfonamide Allergy Unknown RASH Verified 08/01/20 23:59 Antibiotics) [SULFA (SULFONAMIDE ANTIBIOTICS)] sulfamethoxazole Allergy Unknown RASH Verified 08/01/20 23:59 [From Bactrim] trimethoprim [From Bactrim] Allergy Unknown RASH Verified 08/01/20 23:59 Review of Systems Review of Systems All other systems are reviewed and are negative Constitutional: Reports as per HPI and Reports no additional constitutional complaints Eyes: Reports as per HPI and Reports no additional eye complaints Reports system reviewed and no additional complaints, except as documented Cardiovascular: Reports as per HPI and Reports no additional cardiovascular complaints Respiratory: Reports as per HPI and Reports no additional respiratory complaints Gastrointestinal: Reports as per HPI and Reports no additional gastrointestinal complaints Genitourinary: Reports no additional female genitourinary complaints Musculoskeletal: Reports no additional musculoskeletal complaints Skin/Breast: Reports system reviewed and no additional complaints, except as docu Psychiatric: Reports no additional psychiatric complaints Endocrine: Reports no additional endocrine complaints Hematologic/Lymphatic: Reports no additional hematologic/lymphatic complaints Allergic/Immunologic: Reports no additional allergic/immunologic complaints Reports system reviewed and no additional complaints, except as documented and Reports Abnormal speech present Physical Exam Vital Signs: Vital Signs: Last Vital Signs Temp 97.5 F 10/10/20 09:44 Pulse 56 10/10/20 10:20 Resp 15 10/10/20 10:20 BP 105/47 L 10/10/20 10:20 Pulse Ox 96 10/10/20 10:20 Body Mass Index 29.2 Vital signs have been reviewed as appeared to be correct. Blood pressure normal. Heart rate normal. Respiration rate normal. Temperature normal. Oxygen saturation normal. Appearance: Alert. Oriented X3. No acute distress. Head: Normal external exam. Normocephalic. Atraumatic. No Chowdhury signs noted. No raccoon eyes noted Eyes: PERRLA. EOMI. Conjunctiva and sclera normal. Eyelids normal. ENT: TM's Normal. Pharynx normal. Uvula midline. Moist mucous membranes. No trismus noted. No drooling noted. No muffled voice noted. Neck: Normal inspection. Neck supple. FROM. No adenopathy. Thyroid Normal. No meningeal signs. No neck mass noted. CVS: Normal heart rate and rhythm. Heart sound normal. No murmurs noted. Pulses normal throughout. Respiratory: No respiratory distress. Painless inspiration. Breath sounds normal. No wheezes/rales/rhonchi noted. Chest nontender. No accessory muscle usage noted or decreased air movement noted. Abdomen: Soft and nontender. Bowel sounds normal in all 4 quadrants. No distention noted. No organomegaly noted. No visible injury noted. Back: No CVA tenderness. Full range of motion noted. Skin: Skin warm and dry. Normal skin color. Normal skin turgor. No rashes/lesions/lacerations noted. Extremities: No lower extremity edema. Extremities exhibit normal range of motion. Extremities nontender. Neuro: Oriented X 3. No motor deficit. No sensory deficit. Reflexes normal. Course Course Course Narrative: Assessment and plan. 70-year-old female with history of end-stage renal disease, on dialysis, patient was chronic back pain/chronic right hip pain. Labs within patient's normal limits, chest x-ray/of the abdomen and pelvis showing no acute medical condition that needs immediate intervention in the emergency department. Patient was recently discharged from rehab. Patient done think she is ready to go home yet and would like to be placed in some rehab place. Reevaluation(s) Reevaluation #1: Physician observation started at10:30 . Patient placed in physician observation because the patient needed more time to see PT/case management for evaluation and the need for placement patient's vital sign were stable, patient is alert and oriented , neuro exam unchanged, unremarkable rest of physical exam. Time: 10:31 MDM - Abdominal Pain Lab Data Result diagrams: 10/10/20 08:46 10/10/20 08:46 Labs: Lab Results 10/10/20 10/10/20 10/10/20 Range/Units 08:46 08:46 08:46 WBC 9.9 (4.8-10.8) X10*3/uL RBC 3.62 L (4.20-5.50) X10*6/uL Hgb 10.8 L (12.0-16.0) g/dl Hct 32.7 L D (37-47) % MCV 90.3 (80-98) fL MCH 29.8 (27.0-33.0) pg MCHC 33.0 (31.0-35.0) g/dl RDW 14.0 (11.0-16.0) % Plt Count 192 (160-400) X10*3/uL MPV 11.2 (9.4-12.3) fL Immature Gran % (Auto) 0.4 (0.0-0.4) % Neut % (Auto) 88.2 H (45-73) % Lymph % (Auto) 4.5 L (20-40) % [place] % (Auto) 6.7 (2-11) % Eos % (Auto) 0.1 (0-4) % Baso % (Auto) 0.1 (0-2) % Lymph # (Auto) 0.5 L (1.2-4.9) X10*3/uL [place] # (Auto) 0.7 (0.1-1.2) X10*3/uL Eos # (Auto) 0.0 (0.0-0.4) X10*3/uL Baso # (Auto) 0.0 (0.0-0.2) X10*3/uL Abs Immat Gran (auto) 0.04 H (0.00-0.03) X10*3/uL Absolute Neuts (auto) 8.8 H (2.0-8.3) X10*3/uL Absolute Nucleated RBC 0.000 (0.0-0.012) X10*3/uL Nucleated RBC % (auto) 0.0 (0.0-0.2) /100WBC Smear Tech's Comments VERIFIED Sodium 132 L (135-145) mmol/L Potassium 4.3 (3.3-5.1) mmol/L Chloride 89 L (96-108) mmol/L Carbon Dioxide 24 (22-29) mmol/L Anion Gap 23 H (12-20) BUN 33 H (9-16) mg/dL Creatinine 4.09 H* (0.5-1.4) mg/dL Estim Creat Clear Calc 10.8 Estimated GFR 11 Random Glucose 124 H (60-115) mg/dL Calcium 6.7 L (8.4-10.2) mg/dL Total Bilirubin 0.3 (0.0-1.0) mg/dL Direct Bilirubin 0.3 (0.0-0.5) mg/dL AST 25 D (5-31) U/L ALT 15 (0-31) U/L Alkaline Phosphatase 129 H (39-117) U/L B-Natriuretic Peptide 1629 H (<100) pg/mL Total Protein 5.9 L (6.5-8.0) g/dL Albumin 3.0 L (3.5-5.0) g/dL Lipase 4 L (8-78) U/L Discharge Plan Discharge Clinical Impression: Abdominal pain, End stage kidney disease Prescriptions: No Action metoprolol succinate 100 mg tablet extended release 24 hr 100 mg PO DAILY RF: 0 hydralazine 25 mg tablet 1 tab PO DAILY RF: 0 acetaminophen-codeine 300-30 mg tablet 2 tab PO TID RF: 0 citalopram 20 mg tablet 1 tab PO DAILY RF: 0 lorazepam 0.5 mg tablet 2 tab PO BEDTIME PRN (Reason: anxiety) RF: 0 amlodipine 10 mg tablet 1 tab PO DAILY RF: 0 pravastatin 20 mg tablet 20 mg PO DAILY RF: 0 gabapentin 100 mg capsule 300 mg PO DAILY RF: 0 insulin lispro [Humalog KwikPen Insulin] 100 unit/mL insulin pen 20 unit subcut TIDAC RF: 0 Metamucil Fiber Singles 3.4 gram powder in packet 1 packet PO DAILY RF: 0 aspirin 81 mg Tablet,Chewable 81 mg PO DAILY RF: 0 bupropion HCl 150 mg Tablet Sustained-Release 12 Hr 150 mg PO QAM RF: 0 PMFSH Past Medical History Medical History Acute pain Anxiety Arthropathy of right hip AV fistula Back pain Diabetes Diabetes ESRD (end stage renal disease) on dialysis Ground glass opacity present on imaging of lung High cholesterol Hypertension Kidney failure Surgical History H/O: hysterectomy Family History Family History Other Family history non-contributory Social History Social History Household Members: Spouse and Children Housing: House Alcohol intake: never Smoking Status: Never smoker Use of substances other than those prescribed or required for medical reasons: No Advance Directives: Yes Advance Directives Information Provided: No Advance Directives on File: Yes Advance Directives Date on File: 09/21/20 service: No Current occupational status: retired
[2020-10-10 08:50] LABS: Basophils Percent Auto 0.1 % (0-2); Eosinophils Percent Auto 0.1 % (0-4); Hematocrit 32.7 % (37-47); Hemoglobin 10.8 g/dl (12.0-16.0); Imm Gran Abs Auto 0.04 X10*3/uL (0.00-0.03); Imm Gran Pct Auto 0.4 % (0.0-0.4); Lymphocytes Absolute Auto 0.5 X10*3/uL (1.2-4.9); Lymphocytes Percent Auto 4.5 % (20-40); MANUAL DIFF FLAG SCAN; Mean Corpuscular Hemoglobin 29.8 pg (27.0-33.0); Mean Corpuscular Volume 90.3 fL (80-98); Mean Platelet Volume 11.2 fL (9.4-12.3); Monocytes Absolute Auto 0.7 X10*3/uL (0.1-1.2); Monocytes Percent Auto 6.7 % (2-11); Neutrophils Absolute Auto 8.8 X10*3/uL (2.0-8.3); Neutrophils Percent Auto 88.2 % (45-73); Platelet Count 192 X10*3/uL (160-400); Red Blood Count 3.62 X10*6/uL (4.20-5.50); SCAN SMEAR FLAG 1; White Blood Count 9.9 X10*3/uL (4.8-10.8)
[2020-10-10 09:12] LABS: SLIDE REVIEW VERIFIED
[2020-10-10 09:15] LABS: B Type Natriuretic Peptide 1629 pg/mL (<100)
[2020-10-10 09:18] LABS: Alanine Aminotransferase 15 U/L (0-31); Alkaline Phosphatase 129 U/L (39-117); Anion Gap 23 (12-20); Aspartate Amino Transferase 25 U/L (5-31); Bilirubin Direct 0.3 mg/dL (0.0-0.5); Bilirubin Total 0.3 mg/dL (0.0-1.0); Blood Urea Nitrogen 33 mg/dL (9-16); Calcium 6.7 mg/dL (8.4-10.2); Carbon Dioxide 24 mmol/L (22-29); Chloride 89 mmol/L (96-108); Creatinine Clr Calc Pharmacy 10.8; Estimated Glomerular Filt Rate 11; Glucose Random 124 mg/dL (60-115); Lipase 4 U/L (8-78); Potassium 4.3 mmol/L (3.3-5.1); Sodium 132 mmol/L (135-145); Total Protein 5.9 g/dL (6.5-8.0)
[2020-10-10] MEDS: oxyCODONE HCl Immed Release 5 MG TABLET PO ×2 (09:46→14:20)
--- NOTE | 2020-10-10 11:10 | PC.NURSE ---
pt sister Lizbeth called in hopes of passing along a message to Kade doctor regarding her back issues and recent hospital visits. Hoda said to refer Lizbeth to her Pro for any information regarding her care. aware of Alexandre call.
--- NOTE | 2020-10-10 13:46 | PC.NURSE ---
pt is eating lunch. hob up.
--- NOTE | 2020-10-10 13:54 | PC.NURSE ---
repositioned and boosted pt up in bed with a pillow under her right side, call howell in reach
[2020-10-10 14:13] LABS: Glucose, Whole Blood 148 mg/dL (60-115)
--- NOTE | 2020-10-10 16:46 | PC.NURSE ---
PT C/O PAIN/DISCOMFORT SECONDARY TO SITTING ON STRETCHER, PT PROVIDED RECLINER CHAIR, ABLE TO MOVE TO CHAIR W/ 1 PERSON ASSIST, REPORTS IMPROVEMENT IN ORIGINAL DISCOMFORT BUT STILL UNCOMFORTABLE.
[2020-10-10] MEDS: diphenhydrAMINE HCL 25 MG TABLET PO (18:30)
[2020-10-10 19:10] LABS: Glucose, Whole Blood 127 mg/dL (60-115)
[2020-10-10] MEDS: LORazepam 1 MG TABLET PO (23:43)
--- NOTE | 2020-10-10 23:44 | PC.NURSE ---
Report taken from Marcus, kiana RN resuming care. Pt reporting 10/10 pain to left side, asking for pain medication. Pt reports no relief after being with Tylenol #3 @ 2100. Pt medicated with Ativan per request. VSS at this time, pt resting in POC. Continue to monitor.
--- NOTE | 2020-10-11 00:36 | PC.NURSE ---
Pt ringing call dante aniay, reports no relief after Ativan, states I am suffering here!! MD at bedside for re-eval due to continued reported pain. Pt reporting pain to left side for two months. States she has been evaluated for pain already. Per pt, I have been taking Oxy for 10 years or more. Pt and MD agreeable to Tizanidine, awaiting order. Continue to monitor.
[2020-10-11] MEDS: TiZANidine HCL 4 MG TABLET PO (00:46)
--- NOTE | 2020-10-11 00:47 | PC.NURSE ---
Pt medicated with Tizandine per SEP. Continue to monitor.
[2020-10-11 02:00] VITALS: RESP 18
[2020-10-11 03:13] VITALS: BP 116/51; PULSE 68; RESP 16; TEMP 36.4; O2SAT 97
--- NOTE | 2020-10-11 05:07 | PC.NURSE ---
Pt wakes from sleep, reporting severe pain to left side. Pt asking for pain medication. Pt advised that she is not due for any medications until 0900. This RN offered repositioning to pt, heat/cold therapy, warmed blankets. Pt resting in POC at this time, continue to monitor.
--- NOTE | 2020-10-11 07:29 | PC.NURSE ---
pt screaming out in pain, states its her chronic pain, stopped screaming once she was told that she could have her codeine in about an hour,
[2020-10-11] MEDS: Aspirin 81 MG TAB.CHEW PO (08:00)
[2020-10-11] MEDS: Escitalopram Oxalate 10 MG TABLET PO (08:00)
[2020-10-11 08:01] VITALS: BP 127/57; PULSE 71; PULSE 72
[2020-10-11] MEDS: Metoprolol Succinate ER 100 MG TAB.ER.24H PO (08:01)
[2020-10-11] MEDS: hydrALAZINE HCl 25 MG TABLET PO (08:01)
[2020-10-11] MEDS: Gabapentin 100 MG CAPSULE PO (08:01)
[2020-10-11 08:02] VITALS: BP 127/57; PULSE 72
[2020-10-11] MEDS: amLODIPine Besylate 10 MG TABLET PO (08:02)
[2020-10-11] MEDS: buPROPion HCl XL 150 MG TAB.ER.24H PO (08:30)
--- NOTE | 2020-10-11 08:35 | PC.NURSE ---
failed pt eval, poor effort, eating breakfast, took meds, c/o chronic r sided pain, alert, speech clear, now sitting in ashley chair
[2020-10-11 10:12] VITALS: BP 120/57; PULSE 68; RESP 16
[2020-10-11 12:31] LABS: COVID-19 Test Negative (Negative)
--- NOTE | 2020-10-11 14:28 | PC.NURSE ---
pt assisted to the commode, was unable to have bm, assisted back to bed, ate small amt of lunch, medicated w apap w codeine for pain
--- NOTE | 2020-10-11 15:02 | MHC.CM.ED ---
PT eval is recomending str. pt requested ref to [facility], ref. has been made and pt is accepted. of note: pt is HD : ,, sat at [facility]. we are still waiting for ins. auth at this time. and rn in e.d. are aware of this dc plan cm to cont. to follow.
--- NOTE | 2020-10-11 16:36 | MHC.CM.ED ---
CM met with patient. Patient agreeable to [facility]. Informed that they will provide dialysis there. Also informed that she will be transported by ambulance at 1800. Pt has not questions at this time. RN aware. CM to follow for d/c needs
--- NOTE | 2020-10-11 16:43 | MHC.CM.ED ---
Dr. Ronn brooks.
[2020-10-11 17:14] VITALS: BP 129/60; PULSE 73; RESP 18; O2SAT 91
--- NOTE | 2020-10-11 17:24 | PC.NURSE ---
Nurse to nurse report called to Ara at [facility]. Pt awaiting transfer to facility, aware of plan of care
== END 2020-10-11 19:48 | disposition skilled nursing facility (03) ==
PROVIDERS: Physician Assistant; Emergency Provider Emergency Medicine; PCP Internal Medicine
DX: R10.9 Unspecified abdominal pain (principal); E11.22 Type 2 diabetes mellitus with diabetic chronic kidney disease; I12.0 Hypertensive chronic kidney disease with stage 5 chronic kidney disease or end stage renal disease; N18.6 End stage renal disease; Z99.2 Dependence on renal dialysis; G89.29 Other chronic pain; M25.551 Pain in right hip; M54.9 Dorsalgia, unspecified; Z91.81 History of falling; Z79.82 Long term (current) use of aspirin; Z79.4 Long term (current) use of insulin; Z79.899 Other long term (current) drug therapy
CPT/HCPCS: 36415; 51798; 71045; 73502; 74176; 80048; 80076; 82947; 83690; 83880; 85025; 87635; 97162; 99285; Q0163

== ENCOUNTER 2020-10-11 00:39 | Outpatient (REF) | payer MEDICARE, SELFPAY | END 2020-10-11 00:40 | disposition home or self-care (01) | LOC: HO.MMNH2L 00:39 | PROVIDERS: Visit Provider Family Medicine | DX: Z13.89 Encounter for screening for other disorder (principal) ==